=== PATIENT | female | born 1965 | race Two or more races ===

== ENCOUNTER 2017-02-13 20:31 | Emergency (ER) | payer MEDICAID ==
[2017-02-13 20:51] VITALS: BP 145/81
[2017-02-13] MEDS ORDERED: diphenhydrAMINE 25 MG Cap PO ONE (21:27)
--- NOTE | 2017-02-13 21:32 | EDM.PDOC ---
ED HPI GENERAL MEDICAL PROBLEM - General Chief Complaint: General Stated Complaint: ILLNESS Time Seen by Provider: 02/13/17 21:21 Source of Information: Reports: Patient History Limitations: Reports: No limitations - History of Present Illness INITIAL COMMENTS - FREE TEXT/NARRATIVE: History of present illness: [51-year-old female is presenting with cold symptoms runny nose and sneezing for the last 3 days. She was afraid to take anything [id number] as she is on Paxil and she didn't know if there would be any drug interactions. She is having a colonoscopy on the seventh and is hoping to not cancel that. She has no shortness of breath fevers or chills. ] Review of systems: As per history of present illness and below otherwise all systems reviewed and negative. Past medical history: As per history of present illness and as reviewed below otherwise noncontributory. Surgical history: As per history of present illness and as reviewed below otherwise noncontributory. Social history: No reported history of drug or alcohol abuse. Family history: As per history of present illness and as reviewed below otherwise noncontributory. Physical exam: HEENT: Atraumatic, normocephalic, pupils reactive, negative for conjunctival pallor or scleral icterus, mucous membranes moist, throat clear, neck supple, nontender, trachea midline. Her nose is very congested and erythematous Lungs: Clear to auscultation, breath sounds equal bilaterally, chest nontender. Heart: S1S2, regular, negative for clicks, rubs, or JVD. Extremities: Atraumatic, negative for cords or calf pain. Neurovascular unremarkable. Neuro: Awake, alert, oriented. Exam nonfocal. Diagnostics: [] Therapeutics: [] Impression: [URI] Plan: [Benadryl does not interact with contacts I'm giving her 50 mg by mouth now and then she picks him up [id number] and also use Afrin spray] Definitive disposition and diagnosis as appropriate pending reevaluation and review of above. Face Pain Score (Numeric/FACES): 9 - Related Data Allergies Allergy/AdvReac Type Severity Reaction Status Date / Time No Known Allergies Allergy Verified 06/17/16 13:24 Home Meds: Home Meds Dabigatran [Pradaxa] 150 mg PO BID #60 cap 08/04/16 [Rx] Hydrocodone/Acetaminophen [Hydrocodon-Acetaminophen 5-325] 1 each PO QID PRN 02/28 [History] Past Medical History HEENT History: Reports: Impaired vision Respiratory History: Reports: PE Other Respiratory History: Non productive cough past 3 years. 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 Musculoskeletal History: Reports: Back pain, chronic Other Musculoskeletal History: pelvis fx finger fx 07/02 Endocrine/Metabolic History: Reports: Obesity/BMI 30+ - Infectious Disease History Infectious Disease History: Reports: Chicken pox - Past Surgical History Female Surgical History: Reports: section Social & Family History - Family History Endocrine/Metabolic: Reports: Diabetes, type II Dermatologic: Reports: Other (see below) Other Dermatologic Family History: mother skin cancer Oncologic: Reports: Other (see below) Other Oncologic Family History: Throat - Tobacco Use Smoking Status *Q: Current Every Day Smoker Years of Tobacco use: 46 Packs/Tins Daily: 0.5 Used Tobacco, but Quit: No Second Hand Smoke Exposure: Yes - Caffeine Use Caffeine Use: Reports: None - Alcohol Use Days Per Week of Alcohol Use: 2 Number of Drinks Per Day: 2 Total Drinks Per Week: 4 - Recreational Drug Use Recreational Drug Use: Yes ED ROS GENERAL - Review of Systems Review Of Systems: ROS reveals no pertinent complaints other than HPI. ED EXAM, GENERAL - Physical Exam Exam: See Below Course - Vital Signs Last Recorded V/S: Last Vital Signs Temp 35.5 C 02/13/17 20:58 Pulse 107 H 02/13/17 20:58 Resp 20 02/13/17 20:58 BP 145/81 H 02/13/17 20:58 Pulse Ox 97 02/13/17 20:58 - Orders/Labs/Meds Orders: Active Orders 24 hr Category Date Time Status diphenhydrAMINE [Benadryl] Med 02/13/17 21:27 Once 50 mg PO ONETIME ONE Departure - Departure Time of Disposition: 21:31 Disposition: Home, Self-Care 01 Condition: good Clinical Impression: URI (upper respiratory infection) Qualifiers: URI type: unspecified viral URI Qualified Code(s): J06.9 - Acute upper respiratory infection, unspecified; B97.89 - Other viral agents as the cause of diseases classified elsewhere Forms: ED Department Discharge Additional Instructions: As we discussed you can sweet pickle maker some [id number] Benadryl. If you get the generic kind it will be cheaper for you. Afrin spray would also be something you could use temporarily. If your problem continues to persist you can follow up in the clinic for further evaluation. - My Orders Last 24 Hours: My Active Orders 02/13/17 21:27 diphenhydrAMINE [Benadryl] 50 mg PO ONETIME ONE - Assessment/Plan Last 24 Hours: My Active Orders 02/13/17 21:27 diphenhydrAMINE [Benadryl] 50 mg PO ONETIME ONE
== END 2017-02-13 21:40 | disposition home or self-care (01) ==
LOC: JP.ED 20:31
DX: J06.9 Acute upper respiratory infection, unspecified (principal); F17.210 Nicotine dependence, cigarettes, uncomplicated; E66.9 Obesity, unspecified; Z68.35 Body mass index [BMI] 35.0-35.9, adult; Z98.890 Other specified postprocedural states
CPT/HCPCS: 99283; A9270

== ENCOUNTER 2017-06-09 07:52 | Inpatient (IN) | payer MEDICAID ==
[~2017-06-09 07:52] MED LIST: Povidone-Iodine 10% Soln 118.25 ML Bottle ONE; Thrombin (Bovine) 5,000 Unit Kit ONE
[2017-06-09] MEDS ORDERED: Scopolamine 1.5 MG Transdermal Patch TOP SCH (08:00)
[2017-06-09] MEDS ORDERED: Gabapentin 300 MG Cap PO ONE (08:00)
[2017-06-09] MEDS: Lactated Ringers 1,000 ML IV SCH ×2 (08:48→17:23)
[2017-06-09] MEDS ORDERED: Succinylcholine 200 MG/10 ML MDV ONE (08:55)
[2017-06-09] MEDS ORDERED: Neostigmine Methylsulfate 1 MG/ML 5 ML Syringe ONE (08:55)
[2017-06-09] MEDS ORDERED: Dexamethasone 4 MG/ML SDV ONE (08:55)
[2017-06-09] MEDS ORDERED: Propofol 200 MG/20 ML SDV ONE ×3 (08:55→13:21)
[2017-06-09] MEDS ORDERED: Ondansetron 4 MG/2 ML SDV ONE (08:55)
[2017-06-09] MEDS ORDERED: Rocuronium 50 MG/5 ML Vial ONE (08:55)
[2017-06-09] MEDS ORDERED: fentaNYL 100 MCG/2 ML SDV ONE (08:56)
[2017-06-09] MEDS ORDERED: Ropivacaine 49.25 ML, Ketorolac 30 MG, EPINEPHrine 0.5 MG, cloNIDine 80 MCG, Sodium Chl... INJECT ONE ×5 (09:30)
[2017-06-09] MEDS ORDERED: Ketamine 500 MG/5 ML MDV IV ONE (09:30)
[2017-06-09] MEDS ORDERED: ceFAZolin 2 GM in Sodium Chloride 0.9% 50 ML IV ONE (09:30)
[2017-06-09] MEDS: Tranexamic Acid 920 MG in Sodium Chloride 0.9% 50 ML IV SCH ×3 (11:45→15:52)
[2017-06-09] MEDS ORDERED: Ondansetron 4 MG/2 ML SDV IVPUSH PRN (14:13)
[2017-06-09] MEDS ORDERED: Naloxone 0.4 MG/ML SDV IVPUSH PRN (14:13)
[2017-06-09] MEDS ORDERED: Zolpidem 5 MG Tab PO PRN (14:13)
[2017-06-09] MEDS ORDERED: Aluminum Hydroxide/Magnesium Hydroxide/Simethicone Susp 30 ML Cup PO PRN (14:13)
[2017-06-09] MEDS ORDERED: Sodium Chloride 0.9% 10 ML Syringe FLUSH PRN (14:13)
[2017-06-09] MEDS ORDERED: Sennosides 8.6 MG Tab PO PRN (14:13)
[2017-06-09] MEDS ORDERED: ceFAZolin 2 GM in Sodium Chloride 0.9% 50 ML IV SCH (14:15)
[2017-06-09] MEDS ORDERED: Gelatin Sponge,Absorbable Pwd 1 GM Pkt MISC ONE (15:00)
[2017-06-09] MEDS: VERIFY SCOPOLAMINE PATCH TOP SCH (15:53)
[2017-06-09] MEDS ORDERED: Albuterol 0.083% 2.5 MG/3 ML Neb Soln NEB PRN (16:39)
[2017-06-09] MEDS: HYDROmorphone 1 MG/ML Syringe IVPUSH PRN (16:51)
--- NOTE | 2017-06-09 17:08 | PCM.CONS ---
H&P History of Present Illness - General Date of Service: 06/09/17 Admit Problem/Dx: Admission Diagnosis/Problem Admission Diagnosis/Problem Spinal stenosis Source of Information: Patient, Provider, RN Notes Reviewed History Limitations: Reports: No Limitations - History of Present Illness Initial Comments - Free Text/Narative: This patient is a 51-year-old woman who I been asked to see by Dr. Ilia Snyder for assistance in medical management during the postoperative period. She underwent spine surgery earlier today by Dr. Snyder, thus far she is done well. Pain control at the present time is suboptimal but she is receiving pain medication from the nursing staff when I saw her. She is been hemodynamically stable and afebrile, denies chest pain, shortness of breath, nausea or vomiting. 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 Musculoskeletal History: Reports: Back Pain, Chronic Other Musculoskeletal History: pelvis fx finger fx Psychiatric History: Reports: Depression Endocrine/Metabolic History: Reports: Obesity/BMI 30+ - Infectious Disease History Infectious Disease History: Reports: Chicken Pox - Past Surgical History HEENT Surgical History: Reports: Tonsillectomy, Other (See Below) Other HEENT Surgeries/Procedures: "ear drums replaced" GI Surgical History: Reports: Hernia, Inguinal Female Surgical History: Reports: Section Social & Family History - Family History HEENT: Reports: Impaired Vision Cardiac: Reports: High Cholesterol, Hypertension Endocrine/Metabolic: Reports: Diabetes, type II Dermatologic: Reports: Other (See Below) Other Dermatologic Family History: mother skin cancer Oncologic: Reports: Other (See Below) Other Oncologic Family History: unknown to pt. - Tobacco Use Smoking Status *Q: Former Smoker Years of Tobacco use: 46 Packs/Tins Daily: 0.5 Used Tobacco, but Quit: Yes Month Tobacco Last Used: 6 Second Hand Smoke Exposure: Yes - Caffeine Use Caffeine Use: Reports: None - Alcohol Use Days Per Week of Alcohol Use: 2 Number of Drinks Per Day: 2 Total Drinks Per Week: 4 - Recreational Drug Use Recreational Drug Use: No H&P Review of Systems - Review of Systems: Review Of Systems: See Below General: Denies: Fever, Chills, Weakness Pulmonary: Reports: No Symptoms Cardiovascular: Reports: No Symptoms Gastrointestinal: Reports: No Symptoms Musculoskeletal: Reports: Back Pain Neurological: Reports: No Symptoms Exam - Exam Exam: See Below - Vital Signs Vital Signs: Last Vital Signs Temp 96 F 06/09/17 15:00 Pulse 72 06/09/17 16:30 Resp 16 06/09/17 15:45 BP 114/73 06/09/17 16:30 Pulse Ox 92 L 06/09/17 16:30 Weight: 201 lb 4.8 oz - Exam Quality Assessment: DVT Prophylaxis General: Alert, Oriented, Cooperative, Mild Distress Neck: Supple, Trachea Midline, +2 Carotid Pulse wo Bruit Lungs: Clear to Auscultation, Normal Respiratory Effort Cardiovascular: Regular Rate, Regular Rhythm, Normal S1, Normal S2. No: Systolic Murmur, Diastolic Murmur GI/Abdominal Exam: Normal Bowel Sounds, Soft, Non-Tender, No Organomegaly, No Distention Extremities: Normal Inspection, No Pedal Edema Consult PN Assessment/Plan Procedures: Procedures ANTITHROMBIN III ACTIVITY (06/17/16) BLOOD TYPING SEROLOGIC ABO (06/08/17) BLOOD TYPING SEROLOGIC RH(D) (06/08/17) CARDIOLIPIN ANTIBODY EA IG (06/17/16) COMP SCREEN MAMMOGRAM ADD-ON (11/13/15) COMPATIBILITY TEST ANTIGLOB (06/08/17) COMPATIBILITY TEST SPIN (06/08/17) COMPLETE CBC W/AUTO DIFF WBC (06/08/17) COMPREHEN METABOLIC PANEL (06/08/17) CT ANGIOGRAPHY CHEST (04/02/17) CULTURE OTHR SPECIMN AEROBIC (05/20/17) CULTURE SCREEN ONLY (11/11/13) ELECTRICAL STIMULATION (04/14/17) EMERGENCY DEPT VISIT (02/13/17) EMERGENCY DEPT VISIT (06/17/16) EMERGENCY DEPT VISIT (06/16/16) EMERGENCY DEPT VISIT (05/05/16) EMERGENCY DEPT VISIT (06/23/15) EMERGENCY DEPT VISIT (01/05/15) EVALUATION OF WHEEZING (05/31/14) EXTREMITY STUDY (03/15/17) INFLUENZA A/B AG IA (11/11/13) MANUAL THERAPY 1/> REGIONS (05/12/17) MECHANICAL TRACTION THERAPY (05/12/17) MRI LUMBAR SPINE W/O DYE (02/24/17) OFFICE/OUTPATIENT VISIT NEW (03/22/17) PT EVAL MOD COMPLEX 30 MIN (04/14/17) RBC ANTIBODY SCREEN (06/08/17) ROUTINE VENIPUNCTURE (06/17/16) STREP A AG IA (11/11/13) THER/PROPH/DIAG INJ SC/IM (06/17/16) THERAPEUTIC EXERCISES (04/14/17) TREAT FINGER DISLOCATION (07/02/15) ULTRASOUND THERAPY (04/14/17) X-RAY EXAM L-2 SPINE 4/>VWS (03/22/17) X-RAY EXAM OF FINGER(S) (07/02/15) Problem List Initiated/Reviewed/Updated: Yes My Orders Last 24 Hours: My Active Orders 06/09/17 16:39 RT Aerosol Therapy [RC] ASDIRECTED Albuterol [Proventil Neb Soln] 2.5 mg NEB Q4HRRT PRN 06/09/17 21:00 Flunisolide [Aerospan] 2 puff IH BID Gabapentin [Neurontin] 300 mg PO TID Plan: ASSESSMENT AND RECOMMENDATIONS STATUS POST SPINE SURGERY-stable and doing well in the immediate postoperative period -Ongoing postoperative management per Dr. Snyder REACTIVE AIRWAY DISEASE-currently asymptomatic -Continue outpatient steroid inhaler -Nebulized albuterol as needed Requesting Provider: RUTHIE Date Consult Requested: 06/09/17 Reason for Consult: Postoperative medical management Patient History Reviewed: Yes
[2017-06-09] MEDS: Acetaminophen/oxyCODONE 325-5 MG Tab PO PRN ×2 (17:10→21:19)
[2017-06-09] MEDS: ceFAZolin 2 GM in Sodium Chloride 0.9% 50 ML IV SCH (17:23)
[2017-06-09] MEDS: Gabapentin 300 MG Cap PO SCH (21:04)
[2017-06-09] MEDS: Formoterol/Mometasone 200-5 MCG 8.8 GM Inhaler IH SCH (21:05)
--- NOTE | 2017-06-09 22:24 | OR ---
DATE OF PROCEDURE: 06/09/2017 PREOPERATIVE DIAGNOSES: 1. Spondylolisthesis, L4-L5. 2. Foraminal stenosis, L4-L5. 3. Lumbar radiculopathy, L4-L5. 4. Low back pain. POSTOPERATIVE DIAGNOSES: 1. Spondylolisthesis, L4-L5. 2. Foraminal stenosis, L4-L5. 3. Lumbar radiculopathy, L4-L5. 4. Low back pain. PROCEDURES: 1. Transforaminal lumbar interbody fusion with posterior lateral grafting L4-L5. 2. Segmental fixation, L4-L5. 3. Interbody device placement, L4-L5. 4. Use of intraoperative fluoroscopy. 5. Laminectomy required for decompression in addition to interbody placement. 6. Use of allograft. 7. Use of autograft contained from facetectomy as well as hemilaminectomy. 8. Using autograft in the L4-L5 interspace as well as the right posterior lateral gutter. DRAINMAN: RIYA Walker. FLUID: Lactated Ringer solution. ESTIMATED BLOOD LOSS: 150 mL. COMPLICATIONS: None. SPECIMEN: None. DISCHARGE DISPOSITION: Stable to PACU. INDICATIONS FOR THE PROCEDURE: The patient was seen preoperatively by myself in the clinic. She had undergone nonoperative treatment, preoperative imaging confirmed the above-mentioned diagnoses. Risks and benefits of the procedure were explained to the patient. Informed consent was obtained. DESCRIPTION OF OPERATION: The patient was seen preoperatively by myself and Anesthesia staff in the preop holding area where the operative site was marked. She was brought to the operative suite by the Anesthesia staff where general anesthesia was administered. Neuromonitoring leads were placed. A sterile Aiken catheter was placed. The operating microscope and fluoroscopy unit were draped in a sterile manner. The patient was then flipped into a prone position on a Jc table. All extremities were found to be well padded. Neuromonitoring leads were normal at baseline. A time-out was called identifying the correct patient, the correct procedure, the correct site, and the antibiotics begun within appropriate period of time. Lateral fluoroscopy was used to identify the L4 and L5 pedicles. The incision was made over the area from the L4-L5 pedicles down to the deep fascia. There was considerably a large amount of fat present. The cerebellars were used for deep retraction. Bleeding was controlled with Bovie electrocautery, bipolar electrocautery, and Aquamantys 5.0 unit during the case. The deep fascia was incised with Bovie electrocautery over the L4 and L5 spinous processes using a Butler elevator, an ENT Bovie tip was used. This was carried down over the spinous processes of L4 and L5, the respective lamina, facets, and transverse processes. After this had been accomplished, this was confirmed on fluoroscopy. 100 mm Versa-Trac blades were then inserted, two of them were used. We then removed the soft tissue and prepared the posterior lateral gutter for grafting. The screws on the left were placed first and confirmed to be in good position on fluoroscopy, followed by the right screws. The pedicle screw placement was done by initially drilling out the facets and then drilling our starting point with the drill and then entering with a PediGuard followed by pedicle probe, followed by screw insertion, screws were from [employer] and were 7.5 x 45 mm hydroxyapatite-coated screws except for left L5 which was 7.5 x 40. All screws were tested above 17 after placement and found to be in good position. After this had been accomplished, I then performed a hemilaminectomy on the left side with total facetectomy removing the inferior facet of L4 and the superior facet of L5 on the left to prepare for interbody placement. I used bipolar electrocautery and then a #4 Ossian to identify the disc space. We did not get near the traversing nerve root over the exiting root nerve root at the L4-L5 interspace. I used sequential meet up to a 10. I then used a straight curette upgoing and downgoing curettes and pituitary and then removed as much extra disc as possible for disc preparation. We then used a bone funnel anteriorly and placed our allograft, autograft mix anteriorly. We then inserted a Rise 10 x 22, 8 to 14, 10 degree cage from [employer]. I then expanded this under fluoroscopy until I torqued out. I then placed a small amount of Floseal for bleeding control. I did use bipolar electrocautery as well as the Aquamantys 5.0 unit at times for epidural bleeding. After this had been completed, we then copiously irrigated with 3 L of Betadine infused irrigation. I then prepared the graft on the right by decorticating the transverse processes on the right at L4-L5 and then placed our allograft autograft mix. The allograft was Signify by [employer]. We then placed our tulips on. After cleaning around the tulips and then placed a 30 mm on the left and 35 mm alyl on the right and then placed our set screws and then torqued them to hold. We then took final films, AP, and lateral, which showed our instrumentation to be in good position. We then closed the deep fascia. I then actually applied two Gel-Foam packets and I put an extra thrombin Gelfoam over the lateral gutter there was some bony bleeding which did contain the bleeding. We then closed the deep fascia with #2 Vicryl in an interlocking manner, #2 Vicryl in a running manner, followed by deep subcutaneous 0 Vicryl pops followed by subcutaneous 2-0 pops superficially followed by 2-0 Monocryl and Dermabond. We had placed a drain, however that came out at the end of the case. We did inject with local anesthetic mix into the subcutaneous area as well as deep musculature. The patient was then flipped into a supine position on the hospital bed. Neuromonitoring leads were taken out and the patient was allowed to awake from general anesthesia, taken to the PACU in good condition. Saleem Snyder DO /[id number]
[2017-06-10] MEDS: ceFAZolin 2 GM in Sodium Chloride 0.9% 50 ML IV SCH ×2 (01:42→10:03)
[2017-06-10] MEDS ORDERED: Dexamethasone 4 MG/ML SDV IVPUSH SCH ×2 (02:15→08:00)
[2017-06-10] MEDS ORDERED: Glycopyrrolate 0.2 MG/ML 5 ML MDV ONE (02:36)
[2017-06-10] MEDS ORDERED: Rocuronium 50 MG/5 ML Vial ONE (02:36)
[2017-06-10] MEDS ORDERED: Neostigmine Methylsulfate 1 MG/ML 5 ML Syringe ONE (02:36)
[2017-06-10] MEDS ORDERED: Dexamethasone 4 MG/ML SDV ONE (02:36)
[2017-06-10] MEDS ORDERED: Succinylcholine 200 MG/10 ML MDV ONE (02:36)
[2017-06-10] MEDS ORDERED: Midazolam 1 MG/ML 2 ML SDV ONE (02:36)
[2017-06-10] MEDS ORDERED: Ondansetron 4 MG/2 ML SDV ONE (02:36)
[2017-06-10] MEDS ORDERED: Propofol 200 MG/20 ML SDV ONE (02:36)
[2017-06-10] MEDS ORDERED: ceFAZolin 1 GM Vial ONE (02:43)
[2017-06-10] MEDS ORDERED: Thrombin (Bovine) 5,000 Unit Kit ONE (03:30)
[2017-06-10] MEDS ORDERED: Povidone-Iodine 10% Soln 118.25 ML Bottle ONE ×2 (03:30→05:33)
[2017-06-10] MEDS ORDERED: Lactated Ringers 1,000 ML ONE ×2 (04:06→05:40)
[2017-06-10] MEDS ORDERED: ePHEDrine 50 MG/ML SDV ONE (04:15)
--- NOTE | 2017-06-10 06:25 | PCM.SN ---
- Free Text/Narrative Note: I was called at 130am notified of rle dorsiflexion weakness and right foot numbness. Ordered stat CT which showed R L4 and L5 screws medial. Took back to OR, redirected screws, medialized interbody implant. Post op patient dorsiflexion better rle. will eval later today.
[2017-06-10] MEDS: Mometasone Furoate Powder 220 MCG/Puff 14 Dose Inhaler INH SCH (07:41)
[2017-06-10] MEDS: Formoterol/Mometasone 200-5 MCG 8.8 GM Inhaler IH SCH (07:42)
[2017-06-10] MEDS: Dexamethasone 4 MG/ML 5 ML MDV IVPUSH SCH ×3 (08:33→20:25)
[2017-06-10] MEDS: Gabapentin 300 MG Cap PO SCH (08:36)
[2017-06-10] MEDS: VERIFY SCOPOLAMINE PATCH TOP SCH (08:47)
--- NOTE | 2017-06-10 09:46 | OR ---
DATE OF PROCEDURE: 06/09/2017 PREOPERATIVE DIAGNOSIS: Malpositioned L4-L5 screws, right. POSTOPERATIVE DIAGNOSIS: Malpositioned L4-L5 screws, right. PROCEDURES: 1. Repositioning of right L4 and L5 screws. 2. Reposition of interbody implant. TOOLS DEVELOPER: RIYA aWlker. ANESTHESIA: General endotracheal intubation. FLUID: Lactated Ringer solution. ESTIMATED BLOOD LOSS: 400 mL. COMPLICATIONS: None. SPECIMEN: None. DISCHARGE DISPOSITION: Stable to PACU. INDICATIONS FOR THE PROCEDURE: The patient was seen preoperatively by myself and the anesthesia staff. I had seen her on the floor. I was called at approximately 1:35, regarding right lower extremity weakness, dorsiflexion, and numbness. When I arrived on the floor, the patient was still able to maintain dorsiflexion but not actively dorsiflex. So, I assessed this at 3/5. Sensation was still intact although with paresthesias on the dorsum of the foot and normal in the remainder of the right lower extremity. She had good range of motion, otherwise of the right lower extremity. She states she was having some pain down the right back and buttocks. I then asked for a stat CT which revealed medial breach of the pedicle at L4 and L5 on the right. Also noted that the interbody was just slightly lateral to where I would like it. Risks and benefits of procedure were explained to the patient and informed consent was obtained. DETAILS OF PROCEDURE: The patient was brought to the operative suite by the anesthesia staff where general anesthesia was administered. A Aiken catheter was already in the fluoroscopy unit and was sterilely draped. The patient was then flipped onto a Jc table in a prone position and all extremities found to be well padded. The bed was flexed as was during the primary procedure. The patient was then prepped and draped in a sterile manner. Time-out was called identifying the correct patient, correct procedure, the correct site, and antibiotics had been with appropriate period of time. The incision was gone through again and all of the sutures were removed down to the fascia. I used cerebellars for retraction, and then, the Versa-Trac 100 mm blades were used after the primary procedure. I then removed the left set screws and the ally, and then, using Bovie electrocautery, Kerrison, and pituitaries, I was able to remove the implant with some finesse. After it bringing back down to its normal size, I then repositioned it more medially. This was confirmed on fluoroscopy. We then removed our right set screws and rods, and then removed the right screws one at a time and then drilled a hole approximately 1 cm lateral. Each of those, I filled the pedicle holes with FloSeal to prevent any more bleeding. I then felt this with a pedicle probe tapped, felt the pedicle probe again, and then replaced the screws. Positioning was confirmed on fluoroscopy. We then reattached our rods and set screws and torqued them specifications. We then copiously irrigated with 3 L Betadine infused irrigation. We then placed one Gel-Foam powder inside the wound and then we closed with #2 Vicryl in a running fashion, deep with 0 Vicryl sutures, superficial with 2-0 subcutaneous sutures, 2-0 Monocryl and Dermabond followed by a sterile dressing. The patient was then flipped onto the hospital bed and taken to the PACU in stable condition. Saleem Snyder DO /[id number]
--- NOTE | 2017-06-10 10:58 | PCM.CONSN ---
- General Info Date of Service: 06/10/17 Functional Status: Reports: Pain Controlled, Tolerating Diet - Review of Systems General: Denies: Fever, Chills Pulmonary: Reports: No Symptoms Cardiovascular: Reports: No Symptoms Gastrointestinal: Reports: No Symptoms Systems Review Comment:: This patient unfortunately had complications during the night, requiring a return to surgery. Since the second surgery has been stable with good vital signs and has been afebrile. Weakness that she experienced in her leg is now resolved following the second surgery. - Patient Data Vitals - Most Recent: Last Vital Signs Temp 99.4 F 06/10/17 09:30 Pulse 92 06/10/17 10:00 Resp 16 06/10/17 10:00 BP 132/72 06/10/17 10:00 Pulse Ox 65 L 06/10/17 10:00 Weight - Most Recent: 201 lb 4.8 oz I&O - Last 24 Hours: Intake & Output 06/09/17 06/10/17 06/10/17 22:59 06:59 14:59 Intake Total 758 1344 1060 Output Total 205 135 350 Balance 553 1209 710 Lab Results Last 24 Hours: Laboratory Results - last 24 hr 06/10/17 06/10/17 06/10/17 Range/Units 07:25 07:25 09:28 WBC 14.9 H (4.5-11.0) K/uL RBC 4.04 (3.30-5.50) M/uL Hgb 10.6 L D (12.0-15.0) g/dL Hct 33.8 L (36.0-48.0) % MCV 84 (80-98) fL MCH 26 L (27-31) pg MCHC 31 L (32-36) % Plt Count 199 (150-400) K/uL Neut % (Auto) 85 H (36-66) % Lymph % (Auto) 7 L (24-44) % [place] % (Auto) 8 H (2-6) % Eos % (Auto) 0 L (2-4) % Baso % (Auto) 0 (0-1) % Sodium 137 L (140-148) mmol/L Potassium 4.2 (3.6-5.2) mmol/L Chloride 105 (100-108) mmol/L Carbon Dioxide 28 (21-32) mmol/L Anion Gap 8.2 (5.0-14.0) mmol/L BUN 15 (7-18) mg/dL Creatinine 0.9 (0.6-1.0) mg/dL Est Cr Clr Drug Dosing 59.80 mL/min Estimated GFR (MDRD) > 60 (>60) Glucose 148 H (74-106) mg/dL Calcium 8.0 L (8.5-10.1) mg/dL Urine Color Yellow Urine Appearance Slightly cloudy Urine pH 5.0 (4.5-8.0) Ur Specific [place] 1.015 (1.008-1.030) Urine Protein Negative (NEGATIVE) mg/dL Urine Glucose (UA) Normal (NEGATIVE) mg/dL Urine Ketones Negative (NEGATIVE) mg/dL Urine Occult Blood Large (NEGATIVE) Urine Nitrite Negative (NEGATIVE) Urine Bilirubin Negative (NEGATIVE) Urine Urobilinogen Normal (NORMAL) mg/dL Ur Leukocyte Esterase Negative (NEGATIVE) Urine RBC 30-40 H (0-5) Urine WBC 0-5 (0-5) Ur Epithelial Cells Few Amorphous Sediment Not seen Urine Bacteria Few Urine Mucus Not seen Med Orders - Current: Current Medications Al Hydroxide/Mg Hydroxide (Mag-Al Plus) 30 ml PO Q4H PRN PRN Reason: Indigestion Albuterol (Proventil Neb Soln) 2.5 mg NEB Q4H PRN PRN Reason: Dyspnea Dexamethasone (Dexamethasone) 10 mg IVPUSH Q6H [facility] Stop: 06/11/17 02:01 Last Admin: 06/10/17 08:33 Dose: 10 mg Diazepam (Valium) 5 mg IVPUSH Q6H PRN PRN Reason: Spasms Last Admin: 06/09/17 20:58 Dose: 5 mg Hydromorphone HCl (Dilaudid) 1 mg IVPUSH Q2H PRN PRN Reason: Pain Last Admin: 06/09/17 16:51 Dose: 1 mg Lactated Ringer's (Ringers, Lactated) 1,000 mls @ 100 mls/hr IV ASDIRECTED [facility] Last Admin: 06/09/17 17:23 Dose: 100 mls/hr Magnesium Hydroxide (Milk Of Magnesia) 30 ml PO BID PRN PRN Reason: Constipation Mometasone Furoate (Asmanex 220 Mcg) 0 puff INH DAILYRT [facility] Last Admin: 06/10/17 07:41 Dose: 2 puff Verify Scopolamine (Patch) 0 each TOP DAILY [facility] Last Admin: 06/10/17 08:47 Dose: Not Given Ondansetron HCl (Zofran) 8 mg IVPUSH Q4H PRN PRN Reason: Nausea/Vomiting Oxycodone/Acetaminophen (Percocet 325-5 Mg) 2 tab PO Q4H PRN PRN Reason: Pain Last Admin: 06/09/17 21:19 Dose: 2 tab Scopolamine (Transderm-Scop) 1.5 mg TOP Q72H [facility] Stop: 06/12/17 06:00 Last Admin: 06/09/17 08:12 Dose: 1.5 mg Senna (Senna) 8.6 mg PO BID PRN PRN Reason: Constipation Sodium Chloride (Saline Flush) 10 ml FLUSH ASDIRECTED PRN PRN Reason: Keep Vein Open Zolpidem Tartrate (Ambien) 5 mg PO BEDTIME PRN PRN Reason: Sleep Discontinued Medications Cefazolin Sodium (Ancef) Confirm Administered Dose 2 gm .ROUTE .STK-MED ONE Stop: 06/10/17 02:44 Ropivacaine 49.25 ml/Ketorolac Tromethamine 30 mg/Epinephrine HCl 0.5 mg/ Clonidine HCl 80 mcg/ Sodium Chloride 48.45 ml 0 ml INJECT ONETIME ONE Stop: 06/09/17 09:31 Last Admin: 06/09/17 13:54 Dose: 100 ml Dexamethasone (Dexamethasone) Confirm Administered Dose 4 mg .ROUTE .STK-MED ONE Stop: 06/09/17 08:56 Dexamethasone (Dexamethasone) 10 mg IVPUSH Q6H [facility] Stop: 06/10/17 20:15 Last Admin: 06/10/17 02:56 Dose: Not Given Dexamethasone (Dexamethasone) Confirm Administered Dose 4 mg .ROUTE .STK-MED ONE Stop: 06/10/17 02:37 Ephedrine Sulfate (Ephedrine Sulfate) Confirm Administered Dose 50 mg .ROUTE .STK-MED ONE Stop: 06/10/17 04:16 Fentanyl (Sublimaze) Confirm Administered Dose 400 mcg .ROUTE .STK-MED ONE Stop: 06/09/17 08:57 Fentanyl Citrate (Fentanyl 0.05 Mg/Ml Vial) Confirm Administered Dose 50 mcg .ROUTE .STK-MED ONE Stop: 06/09/17 08:57 Fentanyl Citrate (Fentanyl 0.05 Mg/Ml Vial) Confirm Administered Dose 50 mcg .ROUTE .STK-MED ONE Stop: 06/09/17 12:03 Fentanyl Citrate (Fentanyl 0.05 Mg/Ml Vial) Confirm Administered Dose 50 mcg .ROUTE .[facility] ONE Stop: 06/10/17 02:38 Gabapentin (Neurontin) 300 mg PO ONETIME ONE Stop: 06/09/17 08:01 Last Admin: 06/09/17 08:12 Dose: 300 mg Gabapentin (Neurontin) 300 mg PO TID [facility] Last Admin: 06/10/17 08:36 Dose: Not Given Gelatin (Gelfoam) 2 gm MISC ONETIME ONE Stop: 06/09/17 15:01 Last Admin: 06/09/17 15:57 Dose: Not Given Glycopyrrolate (Robinul) Confirm Administered Dose 1 mg .ROUTE .K-MED ONE Stop: 06/10/17 02:37 Cefazolin Sodium 2 gm/ Sodium (Chloride) 50 mls @ 100 mls/hr IV ONETIME ONE Stop: 06/09/17 09:59 Last Admin: 06/09/17 11:28 Dose: 100 mls/hr Ketamine HCl 100 mg/ Sodium (Chloride) 100 mls @ 15.7 mls/hr IV ASDIRECTED [facility] Stop: 06/09/17 12:00 Tranexamic Acid 920 mg/ Sodium (Chloride) 59.2 mls @ 236.8 mls/hr IV Q3H [facility] Stop: 06/09/17 12:44 Last Admin: 06/09/17 15:52 Dose: Not Given Cefazolin Sodium 2 gm/ Sodium (Chloride) 50 mls @ 100 mls/hr IV Q8H [facility] Stop: 06/10/17 06:44 Last Admin: 06/09/17 15:55 Dose: Not Given Cefazolin Sodium 2 gm/ Sodium (Chloride) 50 mls @ 100 mls/hr IV Q8H [facility] Stop: 06/10/17 10:29 Last Admin: 06/10/17 10:03 Dose: 100 mls/hr Lactated Ringer's (Ringers, Lactated) Confirm Administered Dose 1,000 mls @ as directed .ROUTE .[facility] ONE Stop: 06/10/17 04:07 Lactated Ringer's (Ringers, Lactated) Confirm Administered Dose 1,000 mls @ as directed .ROUTE .STK-MED ONE Stop: 06/10/17 05:41 Ketamine HCl (Ketalar) 26 mg IV ONETIME ONE Stop: 06/09/17 09:31 Last Admin: 06/09/17 15:53 Dose: Not Given Midazolam HCl (Versed 1 Mg/Ml) Confirm Administered Dose 2 mg .ROUTE .STK-MED ONE Stop: 06/10/17 02:37 Mometasone Furoate/Formoterol Fumar (Dulera 200-5 Mcg) 0 puff IH DAILYRT [facility] Last Admin: 06/10/17 07:42 Dose: Not Given Naloxone HCl (Narcan) 0.2 mg IVPUSH ONETIME PRN PRN Reason: Oversedation Stop: 06/09/17 14:14 Neostigmine Methylsulfate (Neostigmine) Confirm Administered Dose 5 mg .ROUTE .STK-MED ONE Stop: 06/09/17 08:56 Neostigmine Methylsulfate (Neostigmine) Confirm Administered Dose 5 mg .ROUTE .STK-MED ONE Stop: 06/10/17 02:37 Ondansetron HCl (Zofran) Confirm Administered Dose 4 mg .ROUTE .STK-MED ONE Stop: 06/09/17 08:56 Ondansetron HCl (Zofran) Confirm Administered Dose 4 mg .ROUTE .STK-MED ONE Stop: 06/10/17 02:37 Povidone Iodine (Betadine 10% Soln) Confirm Administered Dose 1 ml .ROUTE .STK- MED ONE Stop: 06/09/17 06:43 Last Admin: 06/09/17 12:20 Dose: 30 ml Povidone Iodine (Betadine 10% Soln) Confirm Administered Dose 1 ml .ROUTE .STK- MED ONE Stop: 06/10/17 03:31 Last Admin: 06/10/17 04:50 Dose: 30 ml Povidone Iodine (Betadine 10% Soln) Confirm Administered Dose 1 ml .ROUTE .STK- MED ONE Stop: 06/10/17 05:34 Last Admin: 06/10/17 05:30 Dose: 10 ml Propofol (Diprivan 20 Ml) Confirm Administered Dose 200 mg .ROUTE .STK-MED ONE Stop: 06/09/17 08:56 Propofol (Diprivan 20 Ml) Confirm Administered Dose 600 mg .ROUTE .[facility] ONE Stop: 06/09/17 12:20 Propofol (Diprivan 20 Ml) Confirm Administered Dose 200 mg .ROUTE .[facility] ONE Stop: 06/09/17 13:22 Propofol (Diprivan 20 Ml) Confirm Administered Dose 200 mg .ROUTE .[facility] ONE Stop: 06/10/17 02:37 Rocuronium [place] (Zemuron) Confirm Administered Dose 50 mg .ROUTE .[facility] ONE Stop: 06/09/17 08:56 Rocuronium [place] (Zemuron) Confirm Administered Dose 50 mg .ROUTE .[facility] ONE Stop: 06/10/17 02:37 Sodium Chloride (Normal Saline) 1,000 ml IRR .[facility] ONE Stop: 06/09/17 12:22 Last Admin: 06/09/17 12:21 Dose: 1,000 ml Succinylcholine Chloride (Quelicin) Confirm Administered Dose 200 mg .ROUTE .[facility] ONE Stop: 06/09/17 08:56 Succinylcholine Chloride (Quelicin) Confirm Administered Dose 200 mg .ROUTE .[facility] ONE Stop: 06/10/17 02:37 Thrombin (Thrombin-Jmi) Confirm Administered Dose 15,000 unit .ROUTE .[facility] ONE Stop: 06/09/17 06:43 Last Admin: 06/09/17 12:20 Dose: 10,000 unit Thrombin (Thrombin-Jmi) Confirm Administered Dose 15,000 unit .ROUTE .[facility] ONE Stop: 06/10/17 03:31 Last Admin: 06/10/17 04:20 Dose: 10,000 unit - Exam General: Alert, Oriented, Cooperative, No Acute Distress Lungs: Clear to Auscultation, Normal Respiratory Effort Cardiovascular: Regular Rate, Regular Rhythm GI/Abdominal Exam: Normal Bowel Sounds, Soft, Non-Tender, No Distention Consult PN Assessment/Plan Procedures: Procedures ANTITHROMBIN III ACTIVITY (06/17/16) BLOOD TYPING SEROLOGIC ABO (06/08/17) BLOOD TYPING SEROLOGIC RH(D) (06/08/17) CARDIOLIPIN ANTIBODY EA IG (06/17/16) COMP SCREEN MAMMOGRAM ADD-ON (11/13/15) COMPATIBILITY TEST ANTIGLOB (06/08/17) COMPATIBILITY TEST SPIN (06/08/17) COMPLETE CBC W/AUTO DIFF WBC (06/08/17) COMPREHEN METABOLIC PANEL (06/08/17) CT ANGIOGRAPHY CHEST (04/02/17) CULTURE OTHR SPECIMN AEROBIC (05/20/17) CULTURE SCREEN ONLY (11/11/13) ELECTRICAL STIMULATION (04/14/17) EMERGENCY DEPT VISIT (02/13/17) EMERGENCY DEPT VISIT (06/17/16) EMERGENCY DEPT VISIT (06/16/16) EMERGENCY DEPT VISIT (05/05/16) EMERGENCY DEPT VISIT (06/23/15) EMERGENCY DEPT VISIT (01/05/15) EVALUATION OF WHEEZING (05/31/14) EXTREMITY STUDY (03/15/17) INFLUENZA A/B AG IA (11/11/13) MANUAL THERAPY 1/> REGIONS (05/12/17) MECHANICAL TRACTION THERAPY (05/12/17) MRI LUMBAR SPINE W/O DYE (02/24/17) OFFICE/OUTPATIENT VISIT NEW (03/22/17) PT EVAL MOD COMPLEX 30 MIN (04/14/17) RBC ANTIBODY SCREEN (06/08/17) ROUTINE VENIPUNCTURE (06/17/16) STREP A AG IA (11/11/13) THER/PROPH/DIAG INJ SC/IM (06/17/16) THERAPEUTIC EXERCISES (04/14/17) TREAT FINGER DISLOCATION (07/02/15) ULTRASOUND THERAPY (04/14/17) X-RAY EXAM L-2 SPINE 4/>VWS (03/22/17) X-RAY EXAM OF FINGER(S) (07/02/15) Problem List Initiated/Reviewed/Updated: Yes My Orders Last 24 Hours: My Active Orders 06/09/17 16:39 RT Aerosol Therapy [RC] ASDIRECTED Albuterol [Proventil Neb Soln] 2.5 mg NEB Q4H PRN 06/10/17 07:00 Mometasone Furoate [Asmanex 220 MCG] 0 puff INH DAILYRT Plan: ASSESSMENT AND RECOMMENDATIONS STATUS POST SPINE SURGERY-developed weakness in the night requiring a return to surgery. Stable since the second surgery. -Ongoing postoperative management per Dr. Snyder RE[employer] DISEASE-currently asymptomatic -Continue outpatient steroid inhaler -Nebulized albuterol as needed
[2017-06-10] MEDS: Acetaminophen/oxyCODONE 325-5 MG Tab PO PRN ×3 (11:55→21:33)
[2017-06-10] MEDS: Lactated Ringers 1,000 ML IV SCH ×2 (11:56→20:37)
--- NOTE | 2017-06-10 12:09 | PCM.PN ---
- General Info Functional Status: Reports: Pain Controlled - Review of Systems General: Reports: No Symptoms HEENT: Reports: No Symptoms Pulmonary: Reports: No Symptoms Cardiovascular: Reports: No Symptoms Gastrointestinal: Reports: No Symptoms Genitourinary: Reports: No Symptoms Musculoskeletal: Reports: Back Pain Skin: Reports: No Symptoms Neurological: Reports: No Symptoms Psychiatric: Reports: No Symptoms - Patient Data Vitals - Most Recent: Last Vital Signs Temp 98.5 F 06/10/17 11:50 Pulse 92 06/10/17 11:50 Resp 19 06/10/17 11:50 BP 106/69 06/10/17 11:50 Pulse Ox 96 06/10/17 11:50 Weight - Most Recent: 201 lb 4.8 oz I&O - Last 24 Hours: Intake & Output 06/09/17 06/10/17 06/10/17 22:59 06:59 14:59 Intake Total 758 1344 1060 Output Total 205 135 350 Balance 553 1209 710 Lab Results Last 24 Hours: Laboratory Results - last 24 hr 06/10/17 06/10/17 06/10/17 Range/Units 07:25 07:25 09:28 WBC 14.9 H (4.5-11.0) K/uL RBC 4.04 (3.30-5.50) M/uL Hgb 10.6 L D (12.0-15.0) g/dL Hct 33.8 L (36.0-48.0) % MCV 84 (80-98) fL MCH 26 L (27-31) pg MCHC 31 L (32-36) % Plt Count 199 (150-400) K/uL Neut % (Auto) 85 H (36-66) % Lymph % (Auto) 7 L (24-44) % [place] % (Auto) 8 H (2-6) % Eos % (Auto) 0 L (2-4) % Baso % (Auto) 0 (0-1) % Sodium 137 L (140-148) mmol/L Potassium 4.2 (3.6-5.2) mmol/L Chloride 105 (100-108) mmol/L Carbon Dioxide 28 (21-32) mmol/L Anion Gap 8.2 (5.0-14.0) mmol/L BUN 15 (7-18) mg/dL Creatinine 0.9 (0.6-1.0) mg/dL Est Cr Clr Drug Dosing 59.80 mL/min Estimated GFR (MDRD) > 60 (>60) Glucose 148 H (74-106) mg/dL Calcium 8.0 L (8.5-10.1) mg/dL Urine Color Yellow Urine Appearance Slightly cloudy Urine pH 5.0 (4.5-8.0) Ur Specific [place] 1.015 (1.008-1.030) Urine Protein Negative (NEGATIVE) mg/dL Urine Glucose (UA) Normal (NEGATIVE) mg/dL Urine Ketones Negative (NEGATIVE) mg/dL Urine Occult Blood Large (NEGATIVE) Urine Nitrite Negative (NEGATIVE) Urine Bilirubin Negative (NEGATIVE) Urine Urobilinogen Normal (NORMAL) mg/dL Ur Leukocyte Esterase Negative (NEGATIVE) Urine RBC 30-40 H (0-5) Urine WBC 0-5 (0-5) Ur Epithelial Cells Few Amorphous Sediment Not seen Urine Bacteria Few Urine Mucus Not seen Med Orders - Current: Current Medications Al Hydroxide/Mg Hydroxide (Mag-Al Plus) 30 ml PO Q4H PRN PRN Reason: Indigestion Albuterol (Proventil Neb Soln) 2.5 mg NEB Q4H PRN PRN Reason: Dyspnea Dexamethasone (Dexamethasone) 10 mg IVPUSH Q6H [facility] Stop: 06/11/17 02:01 Last Admin: 06/10/17 08:33 Dose: 10 mg Diazepam (Valium) 5 mg IVPUSH Q6H PRN PRN Reason: Spasms Last Admin: 06/09/17 20:58 Dose: 5 mg Hydromorphone HCl (Dilaudid) 1 mg IVPUSH Q2H PRN PRN Reason: Pain Last Admin: 06/09/17 16:51 Dose: 1 mg Lactated Ringer's (Ringers, Lactated) 1,000 mls @ 100 mls/hr IV ASDIRECTED [facility] Last Admin: 06/10/17 11:56 Dose: 100 mls/hr Magnesium Hydroxide (Milk Of Magnesia) 30 ml PO BID PRN PRN Reason: Constipation Mometasone Furoate (Asmanex 220 Mcg) 0 puff INH DAILYRT [facility] Last Admin: 06/10/17 07:41 Dose: 2 puff Verify Scopolamine (Patch) 0 each TOP DAILY [facility] Last Admin: 06/10/17 08:47 Dose: Not Given Ondansetron HCl (Zofran) 8 mg IVPUSH Q4H PRN PRN Reason: Nausea/Vomiting Oxycodone/Acetaminophen (Percocet 325-5 Mg) 2 tab PO Q4H PRN PRN Reason: Pain Last Admin: 06/10/17 11:55 Dose: 2 tab Scopolamine (Transderm-Scop) 1.5 mg TOP Q72H [facility] Stop: 06/12/17 06:00 Last Admin: 06/09/17 08:12 Dose: 1.5 mg Senna (Senna) 8.6 mg PO BID PRN PRN Reason: Constipation Sodium Chloride (Saline Flush) 10 ml FLUSH ASDIRECTED PRN PRN Reason: Keep Vein Open Zolpidem Tartrate (Ambien) 5 mg PO BEDTIME PRN PRN Reason: Sleep Discontinued Medications Cefazolin Sodium (Ancef) Confirm Administered Dose 2 gm .ROUTE .STK-MED ONE Stop: 06/10/17 02:44 Ropivacaine 49.25 ml/Ketorolac Tromethamine 30 mg/Epinephrine HCl 0.5 mg/ Clonidine HCl 80 mcg/ Sodium Chloride 48.45 ml 0 ml INJECT ONETIME ONE Stop: 06/09/17 09:31 Last Admin: 06/09/17 13:54 Dose: 100 ml Dexamethasone (Dexamethasone) Confirm Administered Dose 4 mg .ROUTE .STK-MED ONE Stop: 06/09/17 08:56 Dexamethasone (Dexamethasone) 10 mg IVPUSH Q6H [facility] Stop: 06/10/17 20:15 Last Admin: 06/10/17 02:56 Dose: Not Given Dexamethasone (Dexamethasone) Confirm Administered Dose 4 mg .ROUTE .STK-MED ONE Stop: 06/10/17 02:37 Ephedrine Sulfate (Ephedrine Sulfate) Confirm Administered Dose 50 mg .ROUTE .STK-MED ONE Stop: 06/10/17 04:16 Fentanyl (Sublimaze) Confirm Administered Dose 400 mcg .ROUTE .STK-MED ONE Stop: 06/09/17 08:57 Fentanyl Citrate (Fentanyl 0.05 Mg/Ml Vial) Confirm Administered Dose 50 mcg .ROUTE .STK-MED ONE Stop: 06/09/17 08:57 Fentanyl Citrate (Fentanyl 0.05 Mg/Ml Vial) Confirm Administered Dose 50 mcg .ROUTE .STK-MED ONE Stop: 06/09/17 12:03 Fentanyl Citrate (Fentanyl 0.05 Mg/Ml Vial) Confirm Administered Dose 50 mcg .ROUTE .STK-MED ONE Stop: 06/10/17 02:38 Gabapentin (Neurontin) 300 mg PO ONETIME ONE Stop: 06/09/17 08:01 Last Admin: 06/09/17 08:12 Dose: 300 mg Gabapentin (Neurontin) 300 mg PO TID [facility] Last Admin: 06/10/17 08:36 Dose: Not Given Gelatin (Gelfoam) 2 gm MISC ONETIME ONE Stop: 06/09/17 15:01 Last Admin: 06/09/17 15:57 Dose: Not Given Glycopyrrolate (Robinul) Confirm Administered Dose 1 mg .ROUTE .ST-MED ONE Stop: 06/10/17 02:37 Cefazolin Sodium 2 gm/ Sodium (Chloride) 50 mls @ 100 mls/hr IV ONETIME ONE Stop: 06/09/17 09:59 Last Admin: 06/09/17 11:28 Dose: 100 mls/hr Ketamine HCl 100 mg/ Sodium (Chloride) 100 mls @ 15.7 mls/hr IV ASDIRECTED [facility] Stop: 06/09/17 12:00 Tranexamic Acid 920 mg/ Sodium (Chloride) 59.2 mls @ 236.8 mls/hr IV Q3H [facility] Stop: 06/09/17 12:44 Last Admin: 06/09/17 15:52 Dose: Not Given Cefazolin Sodium 2 gm/ Sodium (Chloride) 50 mls @ 100 mls/hr IV Q8H [facility] Stop: 06/10/17 06:44 Last Admin: 06/09/17 15:55 Dose: Not Given Cefazolin Sodium 2 gm/ Sodium (Chloride) 50 mls @ 100 mls/hr IV Q8H [facility] Stop: 06/10/17 10:29 Last Admin: 06/10/17 10:03 Dose: 100 mls/hr Lactated Ringer's (Ringers, Lactated) Confirm Administered Dose 1,000 mls @ as directed .ROUTE .ST-MED ONE Stop: 06/10/17 04:07 Lactated Ringer's (Ringers, Lactated) Confirm Administered Dose 1,000 mls @ as directed .ROUTE .[facility] ONE Stop: 06/10/17 05:41 Ketamine HCl (Ketalar) 26 mg IV ONETIME ONE Stop: 06/09/17 09:31 Last Admin: 06/09/17 15:53 Dose: Not Given Midazolam HCl (Versed 1 Mg/Ml) Confirm Administered Dose 2 mg .ROUTE .STK-MED ONE Stop: 06/10/17 02:37 Mometasone Furoate/Formoterol Fumar (Dulera 200-5 Mcg) 0 puff IH DAILYRT [facility] Last Admin: 06/10/17 07:42 Dose: Not Given Naloxone HCl (Narcan) 0.2 mg IVPUSH ONETIME PRN PRN Reason: Oversedation Stop: 06/09/17 14:14 Neostigmine Methylsulfate (Neostigmine) Confirm Administered Dose 5 mg .ROUTE .STK-MED ONE Stop: 06/09/17 08:56 Neostigmine Methylsulfate (Neostigmine) Confirm Administered Dose 5 mg .ROUTE .STK-MED ONE Stop: 06/10/17 02:37 Ondansetron HCl (Zofran) Confirm Administered Dose 4 mg .ROUTE .STK-MED ONE Stop: 06/09/17 08:56 Ondansetron HCl (Zofran) Confirm Administered Dose 4 mg .ROUTE .STK-MED ONE Stop: 06/10/17 02:37 Povidone Iodine (Betadine 10% Soln) Confirm Administered Dose 1 ml .ROUTE .STK- MED ONE Stop: 06/09/17 06:43 Last Admin: 06/09/17 12:20 Dose: 30 ml Povidone Iodine (Betadine 10% Soln) Confirm Administered Dose 1 ml .ROUTE .STK- MED ONE Stop: 06/10/17 03:31 Last Admin: 06/10/17 04:50 Dose: 30 ml Povidone Iodine (Betadine 10% Soln) Confirm Administered Dose 1 ml .ROUTE .STK- MED ONE Stop: 06/10/17 05:34 Last Admin: 06/10/17 05:30 Dose: 10 ml Propofol (Diprivan 20 Ml) Confirm Administered Dose 200 mg .ROUTE .STK-MED ONE Stop: 06/09/17 08:56 Propofol (Diprivan 20 Ml) Confirm Administered Dose 600 mg .ROUTE .STK-MED ONE Stop: 06/09/17 12:20 Propofol (Diprivan 20 Ml) Confirm Administered Dose 200 mg .ROUTE .STK-MED ONE Stop: 06/09/17 13:22 Propofol (Diprivan 20 Ml) Confirm Administered Dose 200 mg .ROUTE .STK-MED ONE Stop: 06/10/17 02:37 Rocuronium [place] (Zemuron) Confirm Administered Dose 50 mg .ROUTE .STK-MED ONE Stop: 06/09/17 08:56 Rocuronium [place] (Zemuron) Confirm Administered Dose 50 mg .ROUTE .STK-MED ONE Stop: 06/10/17 02:37 Sodium Chloride (Normal Saline) 1,000 ml IRR .STK-MED ONE Stop: 06/09/17 12:22 Last Admin: 06/09/17 12:21 Dose: 1,000 ml Succinylcholine Chloride (Quelicin) Confirm Administered Dose 200 mg .ROUTE .STK -MED ONE Stop: 06/09/17 08:56 Succinylcholine Chloride (Quelicin) Confirm Administered Dose 200 mg .ROUTE .STK -MED ONE Stop: 06/10/17 02:37 Thrombin (Thrombin-Jmi) Confirm Administered Dose 15,000 unit .ROUTE .STK-MED ONE Stop: 06/09/17 06:43 Last Admin: 06/09/17 12:20 Dose: 10,000 unit Thrombin (Thrombin-Jmi) Confirm Administered Dose 15,000 unit .ROUTE .STK-MED ONE Stop: 06/10/17 03:31 Last Admin: 06/10/17 04:20 Dose: 10,000 unit - Exam General: Alert, Oriented HEENT: Pupils Equal, Pupils Reactive Neck: Supple Skin: Warm, Dry, Intact Wound/Incisions: Healing Well, Dressing Dry and Intact, No Drainage Neurological: No New Focal Deficit, Other Psy/Mental Status: Alert, Normal Affect Physical Findings Comments:: The patient was seen in her hospital bed approximately 10:30 this morning. She states that she now has pain on both sides of her back but is in good spirits. She is feeling a little bit more sensation in her foot. She believes that she has increased dorsiflexion strength. She is not able to bring it up but does fire the anterior tibialis and peroneal's today. - Problem List & Annotations (1) Status post lumbar spinal fusion SNOMED Code(s): 87352010910834, 257274896, 953091354, [id number] Code(s): Z98.1 - ARTHRODESIS STATUS Status: Acute Current Visit: Yes Annotation/Comment:: TLIF L4 -L5 (2) Spinal stenosis of lumbar region SNOMED Code(s): 19753677 Code(s): M48.06 - SPINAL STENOSIS, LUMBAR REGION Status: Chronic Current Visit: No - Problem List Review Problem List Initiated/Reviewed/Updated: Yes - My Orders Last 24 Hours: My Active Orders 06/09/17 13:00 Non-Formulary Medication [NF Drug] 0 each TOP DAILY 06/09/17 Dinner Regular Diet [DIET] 06/10/17 00:00 OR Fluoro-NC [CR] Routine 06/10/17 01:21 Lumbar Spine wo Cont [CT] Stat 06/10/17 06:11 Communication Order [RC] ASDIRECTED 06/10/17 08:00 Dexamethasone 10 mg IVPUSH Q6H - Plan Plan:: A: POD 1 L4-5 TLIF s/p emergent return to OR for repositioning of right L4,5 screws, improved P: PT/OT/pain control
[2017-06-10] MEDS: HYDROmorphone 1 MG/ML Syringe IVPUSH PRN (20:31)
[2017-06-11] MEDS: Acetaminophen/oxyCODONE 325-5 MG Tab PO PRN ×6 (01:31→23:55)
[2017-06-11] MEDS: Dexamethasone 4 MG/ML 5 ML MDV IVPUSH SCH (01:41)
[2017-06-11] MEDS: Lactated Ringers 1,000 ML IV SCH ×2 (05:46→15:56)
[2017-06-11] MEDS: Mometasone Furoate Powder 220 MCG/Puff 14 Dose Inhaler INH SCH (07:48)
[2017-06-11] MEDS: VERIFY SCOPOLAMINE PATCH TOP SCH (09:08)
[2017-06-11] MEDS ORDERED: Diazepam 2 MG Tab PO PRN (09:50)
[2017-06-11] MEDS: Magnesium Hydroxide 400 MG/5 ML Susp 30 ML Cup PO PRN (20:58)
[2017-06-12] MEDS: Lactated Ringers 1,000 ML IV SCH (02:18)
[2017-06-12] MEDS: Mometasone Furoate Powder 220 MCG/Puff 14 Dose Inhaler INH SCH (07:04)
[2017-06-12] MEDS: Acetaminophen/oxyCODONE 325-5 MG Tab PO PRN (07:58)
[2017-06-12 08:26] VITALS: BP 140/83
[2017-06-12] MEDS: VERIFY SCOPOLAMINE PATCH TOP SCH (08:28)
[2017-06-12] MEDS: Magnesium Hydroxide 400 MG/5 ML Susp 30 ML Cup PO PRN (09:52)
--- NOTE | 2017-06-14 08:02 | PCM.DCSUM1 ---
Discharge Summary - Hospital Course Free Text/Narrative:: Patient is status postop day 3 of a lumbar fusion. She is doing very well. Patient plans to discharge today. Pain is under control with oral pain medications. She is urinating and ambulating without any difficulties. - Discharge Data Discharge Date: 06/12/17 Discharge Disposition: Home, Self-Care 01 Condition: Good - Patient Summary/Data Consults: Consultations 06/09/17 14:13 Consult to Physician [CONS] Routine Consulting Provider: Jacky Chapman Call Completed to Consulting Physician: Yes OT Evaluation and Treatment [CONS] Routine Please Evaluate and Treat. OT Reason for Consult: Strengthening This query below is only for informational purposes and is not editable. PT Evaluation and Treatment [CONS] Routine Please Evaluate and Treat. PT Reason for Consult: Strengthening This query below is only for informational purposes and is not editable. - Patient Instructions Diet: Usual Diet as Tolerated Activity: Apply Ice, As Tolerated Driving: Do Not Drive Showering/Bathing: May Shower Wound/Incision Care: Keep Operative Site/Wound Site Clean and Dry, Change Dressing Daily Notify Provider of: Fever, Increased Pain, Swelling and Redness, Drainage, Nausea and/or Vomiting - Discharge Plan Prescriptions/Med Rec: Acetaminophen/oxyCODONE [Percocet 325-5 MG] 1 tab PO Q4H PRN #90 tablet PRN Reason: Pain Diazepam [Valium] 2 mg PO BID PRN #40 tablet PRN Reason: Spasms Home Medications: Home Meds Flunisolide [Aerospan] 2 puff IH BID 02/17/17 [History] Gabapentin [Neurontin] 300 mg PO TID 06/09/17 [History] Acetaminophen/oxyCODONE [Percocet 325-5 MG] 1 tab PO Q4H PRN #90 tablet [Rx] Diazepam [Valium] 2 mg PO BID PRN #40 tablet 06/11/17 [Rx] Referrals: Saleem Snyder DO [Physician] - (1 month recheck) - Discharge Summary/Plan Comment DC Time >30 min.: Yes Discharge Summary/Plan Comment: At this time I'll discharge the patient. I did send her home on Percocet. She will see us back in 1 month. We'll start PT at that time. Patient will continue to wear the brace daily. She will notify us if she has any other issues. - Patient Data Vitals - Most Recent: Last Vital Signs Temp 35.8 C 06/12/17 07:00 Pulse 86 06/12/17 07:00 Resp 16 06/12/17 07:00 BP 140/83 06/12/17 07:00 Pulse Ox 97 06/12/17 07:00 Weight - Most Recent: 201 lb 4.795 oz Med Orders - Current: Current Medications Discontinued Medications Al Hydroxide/Mg Hydroxide (Mag-Al Plus) 30 ml PO Q4H PRN PRN Reason: Indigestion Albuterol (Proventil Neb Soln) 2.5 mg NEB Q4H PRN PRN Reason: Dyspnea Cefazolin Sodium (Ancef) Confirm Administered Dose 2 gm .ROUTE .STK-MED ONE Stop: 06/10/17 02:44 Ropivacaine 49.25 ml/Ketorolac Tromethamine 30 mg/Epinephrine HCl 0.5 mg/ Clonidine HCl 80 mcg/ Sodium Chloride 48.45 ml 0 ml INJECT ONETIME ONE Stop: 06/09/17 09:31 Last Admin: 06/09/17 13:54 Dose: 100 ml Dexamethasone (Dexamethasone) Confirm Administered Dose 4 mg .ROUTE .STK-MED ONE Stop: 06/09/17 08:56 Dexamethasone (Dexamethasone) 10 mg IVPUSH Q6H [place] Stop: 06/10/17 20:15 Last Admin: 06/10/17 02:56 Dose: Not Given Dexamethasone (Dexamethasone) Confirm Administered Dose 4 mg .ROUTE .STK-MED ONE Stop: 06/10/17 02:37 Dexamethasone (Dexamethasone) 10 mg IVPUSH Q6H [place] Stop: 06/11/17 02:01 Last Admin: 06/11/17 01:41 Dose: 10 mg Diazepam (Valium) 5 mg IVPUSH Q6H PRN PRN Reason: Spasms Last Admin: 06/09/17 20:58 Dose: 5 mg Diazepam (Valium) 2 mg PO BID PRN PRN Reason: Pain Last Admin: 06/11/17 21:53 Dose: 2 mg Ephedrine Sulfate (Ephedrine Sulfate) Confirm Administered Dose 50 mg .ROUTE .STK-MED ONE Stop: 06/10/17 04:16 Fentanyl (Sublimaze) Confirm Administered Dose 400 mcg .ROUTE .STK-MED ONE Stop: 06/09/17 08:57 Fentanyl Citrate (Fentanyl 0.05 Mg/Ml Vial) Confirm Administered Dose 50 mcg .ROUTE .STK-MED ONE Stop: 06/09/17 08:57 Fentanyl Citrate (Fentanyl 0.05 Mg/Ml Vial) Confirm Administered Dose 50 mcg .ROUTE .STK-MED ONE Stop: 06/09/17 12:03 Fentanyl Citrate (Fentanyl 0.05 Mg/Ml Vial) Confirm Administered Dose 50 mcg .ROUTE .[facility] ONE Stop: 06/10/17 02:38 Gabapentin (Neurontin) 300 mg PO ONETIME ONE Stop: 06/09/17 08:01 Last Admin: 06/09/17 08:12 Dose: 300 mg Gabapentin (Neurontin) 300 mg PO TID [facility] Last Admin: 06/10/17 08:36 Dose: Not Given Gelatin (Gelfoam) 2 gm MISC ONETIME ONE Stop: 06/09/17 15:01 Last Admin: 06/09/17 15:57 Dose: Not Given Glycopyrrolate (Robinul) Confirm Administered Dose 1 mg .ROUTE .[facility] ONE Stop: 06/10/17 02:37 Hydromorphone HCl (Dilaudid) 1 mg IVPUSH Q2H PRN PRN Reason: Pain Last Admin: 06/10/17 20:31 Dose: 1 mg Lactated Ringer's (Ringers, Lactated) 1,000 mls @ 100 mls[facility]hr [facility] Last Admin: 06/12/17 02:18 Dose: 100 mls/hr Cefazolin Sodium 2 gm/ Sodium (Chloride) 50 mls @ 100 mls/hr IV ONETIME ONE Stop: 06/09/17 09:59 Last Admin: 06/09/17 11:28 Dose: 100 mls/hr Ketamine HCl 100 mg/ Sodium (Chloride) 100 mls @ 15.7 mls/hr IV ASDIRECTED [facility] Stop: 06/09/17 12:00 Tranexamic Acid 920 mg/ Sodium (Chloride) 59.2 mls @ 236.8 mls/hr IV Q3H [facility] Stop: 06/09/17 12:44 Last Admin: 06/09/17 15:52 Dose: Not Given Cefazolin Sodium 2 gm/ Sodium (Chloride) 50 mls @ 100 mls/hr IV Q8H [facility] Stop: 06/10/17 06:44 Last Admin: 06/09/17 15:55 Dose: Not Given Cefazolin Sodium 2 gm/ Sodium (Chloride) 50 mls @ 100 mls/hr IV Q8H [facility] Stop: 06/10/17 10:29 Last Admin: 06/10/17 10:03 Dose: 100 mls/hr Lactated Ringer's (Ringers, Lactated) Confirm Administered Dose 1,000 mls @ as directed .ROUTE .STK-MED ONE Stop: 06/10/17 04:07 Lactated Ringer's (Ringers, Lactated) Confirm Administered Dose 1,000 mls @ as directed .ROUTE .STK-MED ONE Stop: 06/10/17 05:41 Ketamine HCl (Ketalar) 26 mg IV ONETIME ONE Stop: 06/09/17 09:31 Last Admin: 06/09/17 15:53 Dose: Not Given Magnesium Hydroxide (Milk Of Magnesia) 30 ml PO BID PRN PRN Reason: Constipation Last Admin: 06/12/17 09:52 Dose: 30 ml Midazolam HCl (Versed 1 Mg/Ml) Confirm Administered Dose 2 mg .ROUTE .STK-MED ONE Stop: 06/10/17 02:37 Mometasone Furoate (Asmanex 220 Mcg) 0 puff INH DAILYRT [facility] Last Admin: 06/12/17 07:04 Dose: 2 puff Mometasone Furoate/Formoterol Fumar (Dulera 200-5 Mcg) 0 puff IH DAILYRT [facility] Last Admin: 06/10/17 07:42 Dose: Not Given Naloxone HCl (Narcan) 0.2 mg IVPUSH ONETIME PRN PRN Reason: Oversedation Stop: 06/09/17 14:14 Neostigmine Methylsulfate (Neostigmine) Confirm Administered Dose 5 mg .ROUTE .STK-MED ONE Stop: 06/09/17 08:56 Neostigmine Methylsulfate (Neostigmine) Confirm Administered Dose 5 mg .ROUTE .STK-MED ONE Stop: 06/10/17 02:37 Verify Scopolamine (Patch) 0 each TOP DAILY [facility] Last Admin: 06/12/17 08:28 Dose: Not Given Ondansetron HCl (Zofran) Confirm Administered Dose 4 mg .ROUTE .STK-MED ONE Stop: 06/09/17 08:56 Ondansetron HCl (Zofran) 8 mg IVPUSH Q4H PRN PRN Reason: Nausea/Vomiting Ondansetron HCl (Zofran) Confirm Administered Dose 4 mg .ROUTE .STK-MED ONE Stop: 06/10/17 02:37 Oxycodone/Acetaminophen (Percocet 325-5 Mg) 2 tab PO Q4H PRN PRN Reason: Pain Last Admin: 06/12/17 07:58 Dose: 2 tab Povidone Iodine (Betadine 10% Soln) Confirm Administered Dose 1 ml .ROUTE .STK- MED ONE Stop: 06/09/17 06:43 Last Admin: 06/09/17 12:20 Dose: 30 ml Povidone Iodine (Betadine 10% Soln) Confirm Administered Dose 1 ml .ROUTE .STK- MED ONE Stop: 06/10/17 03:31 Last Admin: 06/10/17 04:50 Dose: 30 ml Povidone Iodine (Betadine 10% Soln) Confirm Administered Dose 1 ml .ROUTE .STK- MED ONE Stop: 06/10/17 05:34 Last Admin: 06/10/17 05:30 Dose: 10 ml Propofol (Diprivan 20 Ml) Confirm Administered Dose 200 mg .ROUTE .STK-MED ONE Stop: 06/09/17 08:56 Propofol (Diprivan 20 Ml) Confirm Administered Dose 600 mg .ROUTE .STK-MED ONE Stop: 06/09/17 12:20 Propofol (Diprivan 20 Ml) Confirm Administered Dose 200 mg .ROUTE .STK-MED ONE Stop: 06/09/17 13:22 Propofol (Diprivan 20 Ml) Confirm Administered Dose 200 mg .ROUTE .STK-MED ONE Stop: 06/10/17 02:37 Rocuronium [place] (Zemuron) Confirm Administered Dose 50 mg .ROUTE .STK-MED ONE Stop: 06/09/17 08:56 Rocuronium [place] (Zemuron) Confirm Administered Dose 50 mg .ROUTE .STK-MED ONE Stop: 06/10/17 02:37 Scopolamine (Transderm-Scop) 1.5 mg TOP Q72H [place] Stop: 06/12/17 06:00 Last Admin: 06/09/17 08:12 Dose: 1.5 mg Senna (Senna) 8.6 mg PO BID PRN PRN Reason: Constipation Sodium Chloride (Normal Saline) 1,000 ml IRR .STK-MED ONE Stop: 06/09/17 12:22 Last Admin: 06/09/17 12:21 Dose: 1,000 ml Sodium Chloride (Saline Flush) 10 ml FLUSH ASDIRECTED PRN PRN Reason: Keep Vein Open Succinylcholine Chloride (Quelicin) Confirm Administered Dose 200 mg .ROUTE .STK -MED ONE Stop: 06/09/17 08:56 Succinylcholine Chloride (Quelicin) Confirm Administered Dose 200 mg .ROUTE .STK -MED ONE Stop: 06/10/17 02:37 Thrombin (Thrombin-Jmi) Confirm Administered Dose 15,000 unit .ROUTE .STK-MED ONE Stop: 06/09/17 06:43 Last Admin: 06/09/17 12:20 Dose: 10,000 unit Thrombin (Thrombin-Jmi) Confirm Administered Dose 15,000 unit .ROUTE .STK-MED ONE Stop: 06/10/17 03:31 Last Admin: 06/10/17 04:20 Dose: 10,000 unit Zolpidem Tartrate (Ambien) 5 mg PO BEDTIME PRN PRN Reason: Sleep *Q Meaningful Use (DIS) - VTE *Q VTE Criteria *Q: - Stroke *Q Stroke Criteria *Q: - AMI *Q AMI Criteria *Q:
== END 2017-06-12 10:31 | disposition home or self-care (01) | DRG 460 ==
LOC: JP.SDS 07:52 → JP.SDSSCHI 07:52 → EDSTATUS 09:15 → JP.MS 14:13
PROVIDERS: ADMIT Orthopaedic Surgery; ATTEND Orthopaedic Surgery
PROC: 00NY0ZZ Release Lumbar Spinal Cord, Open Approach (ICD-10-PCS; principal; 2017-06-09)
PROC: 0SG00AJ Fusion of Lumbar Vertebral Joint with Interbody Fusion Device, Posterior Approach, Anterior Column, Open Approach (ICD-10-PCS; principal; 2017-06-09)
PROC: 0SB20ZZ Excision of Lumbar Vertebral Disc, Open Approach (ICD-10-PCS; principal; 2017-06-09)
PROC: 0QW004Z Revision of Internal Fixation Device in Lumbar Vertebra, Open Approach (ICD-10-PCS; 2017-06-09)
DX: M48.06 Spinal stenosis, lumbar region (principal); T84.226A Displacement of internal fixation device of vertebrae, initial encounter; M43.16 Spondylolisthesis, lumbar region; M54.16 Radiculopathy, lumbar region; M54.9 Dorsalgia, unspecified; F32.9 Major depressive disorder, single episode, unspecified; G89.29 Other chronic pain; Z86.711 Personal history of pulmonary embolism; H54.7 Unspecified visual loss; Z87.891 Personal history of nicotine dependence
CPT/HCPCS: 36415; 72131; 76001; 80048; 81001; 85025; 94640-76; 94762; 97110-GP; 97112-GP; 97162-GP; 97165-GO; 97530-GP; 97535-GP; 97760-GP; A9270-GY; C1713; J0171; J0330; J0690; J0735; J1100; J1170; J1885; J2250; J2405; J2704; J2795; J3010; J3360; J7030; J7040; J7050; J7120

== ENCOUNTER 2017-08-03 11:25 | Emergency (ER) | payer MEDICAID ==
[2017-08-03 12:22] VITALS: BP 122/90
--- NOTE | 2017-08-03 12:46 | EDM.PDOC ---
ED HPI GENERAL MEDICAL PROBLEM - General Chief Complaint: Genitourinary Problem Stated Complaint: UTI? Time Seen by Provider: 08/03/17 12:30 Source of Information: Reports: Patient, Family History Limitations: Reports: No Limitations - History of Present Illness INITIAL COMMENTS - FREE TEXT/NARRATIVE: pt had back surgery in May. She started last nite with urinary frequency and severe burning. Onset: Other ( last nite. ) Duration: Hour(s):, Getting Worse Location: Reports: Abdomen Quality: Reports: Sharp Associated Symptoms: Reports: Other ( chilling and severe urinary burning. ) Lower Vaginal Pain Score (Numeric/FACES): 8 - Related Data Allergies Allergy/AdvReac Type Severity Reaction Status Date / Time No Known Allergies Allergy Verified 08/03/17 12:17 Home Meds: Home Meds Flunisolide [Aerospan] 2 puff IH BID 02/17/17 [History] Gabapentin [Neurontin] 300 mg PO TID 06/09/17 [History] Past Medical History HEENT History: Reports: Impaired Vision Other HEENT History: wears glasses/contacts Cardiovascular History: Reports: Blood Clots/VTE/DVT Respiratory History: Reports: PE Other Respiratory History: Non productive cough past 3 years-PE 07/2016 and 2016 Genitourinary History: Reports: UTI, Recurrent [employer] History: Reports: 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, Musculoskeletal History: Reports: Back Pain, Chronic Other Musculoskeletal History: pelvis fx finger fx Psychiatric History: Reports: Depression Endocrine/Metabolic History: Reports: Obesity/BMI 30+ - Infectious Disease History Infectious Disease History: Reports: Chicken Pox - Past Surgical History HEENT Surgical History: Reports: Tonsillectomy, Other (See Below) Other HEENT Surgeries/Procedures: "ear drums replaced" GI Surgical History: Reports: Hernia, Inguinal Female Surgical History: Reports: Section Neurological Surgical History: Reports: Lumbar Spine Social & Family History - Family History HEENT: Reports: Impaired Vision Cardiac: Reports: High Cholesterol, Hypertension Endocrine/Metabolic: Reports: Diabetes, type II Dermatologic: Reports: Other (See Below) Other Dermatologic Family History: mother skin cancer Oncologic: Reports: Other (See Below) Other Oncologic Family History: unknown to pt. - Tobacco Use Smoking Status *Q: Current Every Day Smoker Years of Tobacco use: 30 Packs/Tins Daily: 0.1 Used Tobacco, but Quit: Yes Month Tobacco Last Used: 6 Second Hand Smoke Exposure: Yes - Caffeine Use Caffeine Use: Reports: None - Alcohol Use Days Per Week of Alcohol Use: 2 Number of Drinks Per Day: 2 Total Drinks Per Week: 4 - Recreational Drug Use Recreational Drug Use: No ED ROS GENERAL - Review of Systems Review Of Systems: See Below Constitutional: Reports: Chills HEENT: Reports: No Symptoms Respiratory: Reports: No Symptoms Cardiovascular: Reports: No Symptoms Endocrine: Reports: No Symptoms GI/Abdominal: Reports: No Symptoms : Reports: Dysuria, Frequency, Pain, Urgency Musculoskeletal: Reports: No Symptoms Skin: Reports: No Symptoms Neurological: Reports: No Symptoms Psychiatric: Reports: Anxiety ED EXAM, RENAL/ - Physical Exam Exam: See Below Text/Narrative:: pt arrived with urinary burning and frequency.This started last nite. Exam Limited By: No Limitations General Appearance: Alert, Anxious, Mild Distress Ears: Normal External Exam Nose: Normal Inspection Throat/Mouth: Normal Inspection Head: Atraumatic Neck: Normal Inspection Respiratory/Chest: No Respiratory Distress Cardiovascular: Regular Rate, Rhythm GI/Abdominal: Soft, Non-Tender Rectal (Female) Exam: Deferred Extremities: Other (pt just had back surgery. ) Neurological: Alert, Oriented, Normal Cognition Psychiatric: Normal Affect Course - Vital Signs Last Recorded V/S: Last Vital Signs Temp 36.2 C 08/03/17 12:19 Pulse 95 08/03/17 12:19 Resp 16 08/03/17 12:19 BP 122/90 08/03/17 12:19 Pulse Ox 93 L 08/03/17 12:19 - Orders/Labs/Meds Orders: Active Orders 24 hr Category Date Time Status CULTURE URINE [RM] Stat Lab 08/03/17 12:41 Uncollected Labs: Laboratory Tests 08/03/17 Range/Units 12:16 Urine Color Brown Urine Appearance Turbid Urine pH 5.0 (4.5-8.0) Ur Specific [place] 1.020 (1.008-1.030) Urine Protein 30 H (NEGATIVE) mg/dL Urine Glucose (UA) Normal (NEGATIVE) mg/dL Urine Ketones Negative (NEGATIVE) mg/dL Urine Occult Blood Large (NEGATIVE) Urine Nitrite Negative (NEGATIVE) Urine Bilirubin Small (NEGATIVE) Urine Urobilinogen Normal (NORMAL) mg/dL Ur Leukocyte Esterase Large (NEGATIVE) Urine RBC Packed H (0-5) Urine WBC Packed H (0-5) Ur Epithelial Cells Few Amorphous Sediment Not seen Urine Bacteria Many Urine Mucus Moderate - Re-Assessments/Exams Free Text/Narrative Re-Assessment/Exam: 08/03/17 12:53 urine appears very infected will set up a culture. Departure - Departure Time of Disposition: 12:44 Disposition: Home, Self-Care 01 Condition: Fair Clinical Impression: UTI (urinary tract infection) - Discharge Information Referrals: PCP,None [Primary Care Provider] - Forms: ED Department Discharge Care Plan Goals: push fluids, pyridium 300mg tid for 2 days, cipro 500mg bid for 10 days, rtc if not improving. - My Orders Last 24 Hours: My Active Orders 08/03/17 12:41 CULTURE URINE [RM] Stat - Assessment/Plan Last 24 Hours: My Active Orders 08/03/17 12:41 CULTURE URINE [RM] Stat
== END 2017-08-03 13:11 | disposition home or self-care (01) ==
LOC: JP.ED 11:25
DX: N39.0 Urinary tract infection, site not specified (principal); F17.210 Nicotine dependence, cigarettes, uncomplicated; E66.9 Obesity, unspecified; Z68.35 Body mass index [BMI] 35.0-35.9, adult; Z90.49 Acquired absence of other specified parts of digestive tract
CPT/HCPCS: 81001; 87086; 87088; 87186; 99284

== ENCOUNTER 2017-09-26 14:53 | Emergency (ER) | payer MEDICAID ==
[2017-09-26 15:21] VITALS: BP 140/102
--- NOTE | 2017-09-26 15:44 | EDM.PDOC ---
ED HPI GENERAL MEDICAL PROBLEM - General Chief Complaint: Back Pain or Injury Stated Complaint: BACK PAIN/SHOTS ON WED AM Time Seen by Provider: 09/26/17 15:32 Source of Information: Reports: Patient, Family, Old Records, RN Notes Reviewed History Limitations: Reports: No Limitations - History of Present Illness INITIAL COMMENTS - FREE TEXT/NARRATIVE: 51-year-old female presents emergency department day complaint of low back pain , she has been dealing with low back pain since May of this year she states she recently underwent steroid injections without any relief the pain is so intense that she cannot sleep rates her pain 10 out of 10 there is no loss of bowel or bladder no fevers she has she has tried gabapentin for the pain with minimal relief Back Pain Score (Numeric/FACES): 10 - Related Data Allergies Allergy/AdvReac Type Severity Reaction Status Date / Time No Known Allergies Allergy Verified 09/26/17 15:11 Home Meds: Home Meds Flunisolide [Aerospan] 2 puff IH BID 02/17/17 [History] Gabapentin [Neurontin] 300 mg PO TID 06/09/17 [History] Ibuprofen 600 mg PO Q4HR 09/26/17 [History] Past Medical History HEENT History: Reports: Impaired Vision Other HEENT History: wears glasses/contacts Cardiovascular History: Reports: Blood Clots/VTE/DVT Respiratory History: Reports: PE Other Respiratory History: Non productive cough past 3 years-PE 07/2016 and 2016 Genitourinary History: Reports: UTI, Recurrent 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 PT History: Reports: 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, Musculoskeletal History: Reports: Back Pain, Chronic Other Musculoskeletal History: pelvis fx finger fx Psychiatric History: Reports: Depression Endocrine/Metabolic History: Reports: Obesity/BMI 30+ - Infectious Disease History Infectious Disease History: Reports: Chicken Pox - Past Surgical History HEENT Surgical History: Reports: Tonsillectomy, Other (See Below) Other HEENT Surgeries/Procedures: "ear drums replaced" GI Surgical History: Reports: Hernia, Inguinal Neurological Surgical History: Reports: Lumbar Spine Social & Family History - Family History HEENT: Reports: Impaired Vision Cardiac: Reports: High Cholesterol, Hypertension Endocrine/Metabolic: Reports: Diabetes, type II Dermatologic: Reports: Other (See Below) Other Dermatologic Family History: mother skin cancer Oncologic: Reports: Other (See Below) Other Oncologic Family History: unknown to pt. - Tobacco Use Smoking Status *Q: Current Every Day Smoker Years of Tobacco use: 40 Packs/Tins Daily: 0.5 Used Tobacco, but Quit: Yes Month Tobacco Last Used: 6 Second Hand Smoke Exposure: Yes - Caffeine Use Caffeine Use: Reports: None - Alcohol Use Days Per Week of Alcohol Use: 2 Number of Drinks Per Day: 2 Total Drinks Per Week: 4 - Recreational Drug Use Recreational Drug Use: No ED ROS GENERAL - Review of Systems Review Of Systems: See Below Constitutional: Reports: No Symptoms Respiratory: Reports: No Symptoms Cardiovascular: Reports: No Symptoms GI/Abdominal: Reports: No Symptoms Musculoskeletal: Reports: Back Pain Neurological: Reports: Numbness, Tingling ED EXAM,LOWER BACK PAIN/INJURY - Physical Exam Exam: See Below Text/Narrative:: Examination of the back surgical wounds clean dry and intact well-healed she does have paraspinal tenderness no spinal tenderness she is able to ambulate without difficulty Exam Limited By: No Limitations General Appearance: Alert, WD/WN, No Apparent Distress Course - Vital Signs Last Recorded V/S: Last Vital Signs Temp 97.8 F 09/26/17 15:05 Pulse 89 09/26/17 15:05 Resp 20 09/26/17 15:05 BP 140/102 H 09/26/17 15:05 Pulse Ox 97 09/26/17 15:05 Departure - Departure Time of Disposition: 15:43 Disposition: Home, Self-Care 01 Condition: Fair Clinical Impression: Low back pain Qualifiers: Chronicity: chronic Back pain laterality: bilateral Sciatica presence: without sciatica Qualified Code(s): M54.5 - Low back pain; G89.29 - Other chronic pain; G89.29 - Other chronic pain - Discharge Information Referrals: Rubens Orlando MD [Primary Care Provider] - Additional Instructions: Continue to use Tylenol or ibuprofen as needed for pain control, use the hydrocodone as needed for breakthrough pain, use Flexeril as needed for muscle spasm, please keep your follow-up appointments with primary care, orthopedics an upcoming neurology, call return to the emergency department worsening of symptoms - Assessment/Plan Plan: Assessment Acuity = chronic Site and laterality = low back pain Etiology = postsurgical unclear etiology Manifestations = none Location of injury = Home Lab values = none Plan She was provided 6 hydrocodone 5/325 one tab by mouth 3 times a day when necessary, Flexeril 1 tablet by mouth 3 times a day when necessary 10 mg total # 15 she does have follow-up with neurology in November recommend keep follow-ups with primary care and orthopedic surgery Patient was in agreement with the plan all questions were answered, they were instructed to return to the emergency department or call for worsening symptoms. This note was dictated using [employer] voice recognition software please call with any questions.
== END 2017-09-26 15:49 | disposition home or self-care (01) ==
LOC: JP.ED 14:53
DX: G89.29 Other chronic pain (principal); M54.5 Low back pain; F17.210 Nicotine dependence, cigarettes, uncomplicated
CPT/HCPCS: 99283

== ENCOUNTER 2017-10-23 12:59 | Emergency (ER) | payer MEDICAID ==
[2017-10-23 13:34] VITALS: BP 143/102
[2017-10-23] MEDS ORDERED: Ketorolac 60 MG/2 ML SDV IM ONE (14:10)
[2017-10-23] MEDS ORDERED: Acetaminophen/oxyCODONE 325-7.5 MG Tab PO ONE (14:11)
--- NOTE | 2017-10-23 14:17 | EDM.PDOC ---
ED HPI GENERAL MEDICAL PROBLEM - General Chief Complaint: Back Pain or Injury Stated Complaint: BACK PAIN Time Seen by Provider: 10/23/17 14:12 Source of Information: Reports: Patient History Limitations: Reports: No Limitations - History of Present Illness INITIAL COMMENTS - FREE TEXT/NARRATIVE: pt arrived with severe pain in the left buttock and down the left leg. Onset: Today Duration: Week(s):, Getting Worse Location: Reports: Back Associated Symptoms: Reports: Other (pt had surgery in May and she is having severe pain in the lpower back and pain going down her left leg over the buttock. ) Lower Back Pain Score (Numeric/FACES): 9 - Related Data Allergies Allergy/AdvReac Type Severity Reaction Status Date / Time baclofen Allergy Itching Verified 10/23/17 13:57 gabapentin AdvReac Other Verified 10/23/17 13:57 Home Meds: Home Meds Flunisolide [Aerospan] 2 puff IH BID 02/17/17 [History] Ibuprofen 600 mg PO Q4HR 09/26/17 [History] Past Medical History HEENT History: Reports: Impaired Vision Other HEENT History: wears glasses/contacts Cardiovascular History: Reports: Blood Clots/VTE/DVT Respiratory History: Reports: PE Other Respiratory History: Non productive cough past 3 years-PE 07/2016 and 2016 Genitourinary History: Reports: UTI, Recurrent 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: 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, Musculoskeletal History: Reports: Back Pain, Chronic Other Musculoskeletal History: pelvis fx finger fx Psychiatric History: Reports: Depression Endocrine/Metabolic History: Reports: Obesity/BMI 30+ - Infectious Disease History Infectious Disease History: Reports: Chicken Pox - Past Surgical History HEENT Surgical History: Reports: Tonsillectomy, Other (See Below) Other HEENT Surgeries/Procedures: "ear drums replaced" GI Surgical History: Reports: Hernia, Inguinal Neurological Surgical History: Reports: Lumbar Spine Other Neurological Surgeries/Procedures: Surgery May 2017 Social & Family History - Family History HEENT: Reports: Impaired Vision Cardiac: Reports: High Cholesterol, Hypertension Endocrine/Metabolic: Reports: Diabetes, type II Dermatologic: Reports: Other (See Below) Other Dermatologic Family History: mother skin cancer Oncologic: Reports: Other (See Below) Other Oncologic Family History: unknown to pt. - Tobacco Use Smoking Status *Q: Current Every Day Smoker Years of Tobacco use: 40 Packs/Tins Daily: 0.5 Used Tobacco, but Quit: Yes Month Tobacco Last Used: 6 Second Hand Smoke Exposure: Yes - Caffeine Use Caffeine Use: Reports: None - Alcohol Use Days Per Week of Alcohol Use: 2 Number of Drinks Per Day: 2 Total Drinks Per Week: 4 - Recreational Drug Use Recreational Drug Use: No ED ROS GENERAL - Review of Systems Review Of Systems: See Below Constitutional: Reports: No Symptoms HEENT: Reports: No Symptoms Respiratory: Reports: No Symptoms Cardiovascular: Reports: No Symptoms Endocrine: Reports: No Symptoms GI/Abdominal: Reports: No Symptoms : Reports: No Symptoms Musculoskeletal: Reports: Back Pain, Other (pain going down the left leg. ) Skin: Reports: No Symptoms ED EXAM,LOWER BACK PAIN/INJURY - Physical Exam Exam: See Below Text/Narrative:: pt arrived stating she had a lumbar fusion in May of this year. She is having areas of numbness in the rt thigh area. She is having severe pain going down the left leg. She is walking with a walker and states she has to use that. Exam Limited By: No Limitations General Appearance: Alert, Anxious, Moderate Distress Ears: Normal TMs Nose: Normal Inspection Throat/Mouth: Normal Inspection Head: Atraumatic Neck: Carotid Bruit Respiratory/Chest: No Respiratory Distress Cardiovascular: Regular Rate, Rhythm GI/Abdominal: Soft, Non-Tender (Female) Exam: Deferred Rectal (Female) Exam: Deferred Back Exam: Other (pt has tenderness in her lower lumbar area. She has increased pain when her left leg is lifted. ) Extremities: Normal Inspection Neurological: Alert, Other ( walking with a walker ) Psychiatric: Anxious Course - Vital Signs Last Recorded V/S: Last Vital Signs Temp 36.8 C 10/23/17 13:33 Pulse 105 H 10/23/17 13:33 Resp 20 10/23/17 13:33 BP 143/102 H 10/23/17 13:33 Pulse Ox 96 10/23/17 13:33 - Orders/Labs/Meds Meds: Medications Discontinued Medications Generic Name Dose Route Start Last Admin Trade Name Freq PRN Reason Stop Dose Admin Ketorolac Tromethamine 60 mg 10/23/17 14:10 10/23/17 14:32 Toradol IM 10/23/17 14:11 60 mg ONETIME ONE Administration Oxycodone/Acetaminophen 1 tab 10/23/17 14:11 10/23/17 14:34 Percocet 325-7.5 Mg PO 10/23/17 14:12 1 tab ONETIME ONE Administration Departure - Departure Time of Disposition: 15:05 Disposition: Home, Self-Care 01 Condition: Fair Clinical Impression: Fusion of lumbar spine, Radicular pain of left lower extremity Low back pain Qualifiers: Chronicity: chronic Back pain laterality: bilateral Sciatica presence: without sciatica Qualified Code(s): M54.5 - Low back pain - Discharge Information Referrals: Rubens Orlando MD [Primary Care Provider] - Forms: ED Department Discharge Care Plan Goals: ice and heat to the low back, rest, keep appt with Maryanne on Wednesday, motrin 600mg q8h, percocet 5/325 q6h prn for pain. --#10
== END 2017-10-23 15:15 | disposition home or self-care (01) ==
LOC: JP.ED 12:59
DX: M54.16 Radiculopathy, lumbar region (principal); F17.210 Nicotine dependence, cigarettes, uncomplicated; Z88.8 Allergy status to other drugs, medicaments and biological substances; Z98.1 Arthrodesis status
CPT/HCPCS: 96372; 99283; A9270; J1885

== ENCOUNTER 2017-11-01 22:01 | Emergency (ER) | payer MEDICAID ==
[2017-11-01 22:21] VITALS: BP 155/80
[2017-11-01] MEDS ORDERED: HYDROmorphone 1 MG/ML Syringe IM ONE (23:23)
--- NOTE | 2017-11-01 23:29 | EDM.PDOC ---
ED HPI GENERAL MEDICAL PROBLEM - General Chief Complaint: Back Pain or Injury Stated Complaint: pain meds Time Seen by Provider: 11/01/17 23:06 Source of Information: Reports: Patient, Old Records, RN Notes Reviewed History Limitations: Reports: No Limitations - History of Present Illness INITIAL COMMENTS - FREE TEXT/NARRATIVE: 51-year-old female presents to the emergency department today for treatment of pain, she has a long history of chronic back pain has been evaluated in the emergency department multiple times was evaluated in orthopedics today by her surgeon felt she is not a candidate for opioid medication has her set up for consultation with neurology as well as epidural injections with pain management , I did review the orthopedic note as well as the pain management note who also felt she was not a candidate for opiate indications. She is very frustrated and upset with me that I will not provide opiate medications for her Lower Back Pain Score (Numeric/FACES): 9 - Related Data Allergies Allergy/AdvReac Type Severity Reaction Status Date / Time baclofen Allergy Itching Verified 11/01/17 22:24 gabapentin AdvReac Other Verified 11/01/17 22:24 Home Meds: Home Meds Flunisolide [Aerospan] 2 puff IH BID 02/17/17 [History] Ibuprofen 600 mg PO Q4HR 09/26/17 [History] Past Medical History HEENT History: Reports: Impaired Vision Other HEENT History: wears glasses/contacts Cardiovascular History: Reports: Blood Clots/VTE/DVT Respiratory History: Reports: PE Other Respiratory History: Non productive cough past 3 years-PE 07/2016 and 2016 Genitourinary History: Reports: UTI, Recurrent 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, Musculoskeletal History: Reports: Back Pain, Chronic Other Musculoskeletal History: s/p TLIF L4-5 06/09/17 Psychiatric History: Reports: Depression Endocrine/Metabolic History: Reports: Obesity/BMI 30+ - Infectious Disease History Infectious Disease History: Reports: Chicken Pox - Past Surgical History HEENT Surgical History: Reports: Tonsillectomy, Other (See Below) Other HEENT Surgeries/Procedures: "ear drums replaced" GI Surgical History: Reports: Hernia, Inguinal Other Neurological Surgeries/Procedures: Surgery May 2017 Social & Family History - Family History HEENT: Reports: Impaired Vision Cardiac: Reports: High Cholesterol, Hypertension Endocrine/Metabolic: Reports: Diabetes, type II Dermatologic: Reports: Other (See Below) Other Dermatologic Family History: mother skin cancer Oncologic: Reports: Other (See Below) Other Oncologic Family History: unknown to pt. - Tobacco Use Smoking Status *Q: Current Every Day Smoker Years of Tobacco use: 40 Packs/Tins Daily: 0.5 Used Tobacco, but Quit: No Month Tobacco Last Used: 6 Second Hand Smoke Exposure: Yes - Caffeine Use Caffeine Use: Reports: Soda - Alcohol Use Days Per Week of Alcohol Use: 2 Number of Drinks Per Day: 2 Total Drinks Per Week: 4 - Recreational Drug Use Recreational Drug Use: No ED ROS GENERAL - Review of Systems Review Of Systems: See Below Constitutional: Reports: No Symptoms HEENT: Reports: No Symptoms Respiratory: Reports: No Symptoms Cardiovascular: Reports: No Symptoms GI/Abdominal: Reports: No Symptoms : Reports: No Symptoms Musculoskeletal: Reports: Back Pain Skin: Reports: No Symptoms Neurological: Reports: Numbness, Tingling ED EXAM,LOWER BACK PAIN/INJURY - Physical Exam Exam: See Below Exam Limited By: No Limitations General Appearance: Alert, WD/WN, No Apparent Distress Respiratory/Chest: No Respiratory Distress Course - Vital Signs Last Recorded V/S: Last Vital Signs Temp 98.1 F 11/01/17 22:40 Pulse 96 11/01/17 22:40 Resp 20 11/01/17 22:40 BP 155/80 H 11/01/17 22:40 Pulse Ox 93 L 11/01/17 22:40 - Orders/Labs/Meds Orders: Active Orders 24 hr Category Date Time Status HYDROmorphone [Dilaudid] Med 11/01/17 23:23 Once 1 mg IM ONETIME ONE Medication Orders Hydromorphone HCl (Dilaudid) 1 mg IM ONETIME ONE Stop: 11/01/17 23:24 Meds: Medications Generic Name Dose Route Start Last Admin Trade Name Freq PRN Reason Stop Dose Admin Hydromorphone HCl 1 mg 11/01/17 23:23 Dilaudid IM 11/01/17 23:24 ONETIME ONE Departure - Departure Time of Disposition: 23:27 Disposition: Home, Self-Care 01 Condition: Poor Clinical Impression: Radicular pain of left lower extremity, Spondylolisthesis, lumbar region Low back pain Qualifiers: Back pain laterality: bilateral Sciatica presence: without sciatica - Discharge Information Referrals: Rubens Orlando MD [Primary Care Provider] - Additional Instructions: Resume your regular medications, please keep your follow-up appointments with neurology and pain management - My Orders Last 24 Hours: My Active Orders 11/01/17 23:23 HYDROmorphone [Dilaudid] 1 mg IM ONETIME ONE - Assessment/Plan Last 24 Hours: My Active Orders 11/01/17 23:23 HYDROmorphone [Dilaudid] 1 mg IM ONETIME ONE Plan: Assessment Acuity = acute Site and laterality = chronic low back pain Etiology = unclear etiology Manifestations = numbness and tingling both lower extremities Location of injury = Home Lab values = none Plan She was provided 1 mg Dilaudid IM 1 she is to keep her follow-up appointments with neurology as well as pain management This note was dictated using [employer] voice recognition software please call with any questions on syntax or shanta.
== END 2017-11-01 23:44 | disposition home or self-care (01) ==
LOC: JP.ED 22:01
DX: M43.16 Spondylolisthesis, lumbar region (principal); F17.210 Nicotine dependence, cigarettes, uncomplicated; F32.9 Major depressive disorder, single episode, unspecified; Z88.8 Allergy status to other drugs, medicaments and biological substances
CPT/HCPCS: 96372; 99283; J1170

== ENCOUNTER 2018-02-21 11:24 | Emergency (ER) | payer MEDICAID ==
[2018-02-21 11:35] VITALS: BP 145/84
[2018-02-21] MEDS ORDERED: diphenhydrAMINE 50 MG/ML SDV IVPUSH ONE (11:51)
[2018-02-21] MEDS ORDERED: methylPREDNISolone Sodium Succinate 125 MG/2 ML SDV IVPUSH ONE (11:51)
--- NOTE | 2018-02-21 11:51 | EDM.PDOC ---
ED HPI GENERAL MEDICAL PROBLEM - General Chief Complaint: ENT Problem Stated Complaint: UPSET STOMACH Time Seen by Provider: 02/21/18 11:35 Source of Information: Reports: Patient History Limitations: Reports: No Limitations - History of Present Illness INITIAL COMMENTS - FREE TEXT/NARRATIVE: 52-year-old female woke up this morning with a fullness in the back of her throat which seemed to get a little worse as the morning has gone on and now is stable. She feels like she has a "hernia" in the back of her throat making it difficult to swallow and making her feel very anxious. She has a headache and has had some cold symptoms over the past 2 days. No fever or chills. She has not had anything like this in the past. No shortness of breath. Onset: Unknown/Unsure Severity: Moderate Associated Symptoms: Reports: Other (Mild cold symptoms and a headache over the past 2 days) Throat Pain Score (Numeric/FACES): 2 - Related Data Allergies Allergy/AdvReac Type Severity Reaction Status Date / Time baclofen Allergy Itching Verified 11/01/17 22:24 gabapentin AdvReac Other Verified 11/01/17 22:24 Home Meds: Home Meds Ibuprofen 600 mg PO Q4HR PRN 09/26/17 [History] Albuterol Sulfate [Proair Hfa] 8.5 gm IH Q4H PRN 11/19/17 [History] Past Medical History HEENT History: Reports: Impaired Vision Other HEENT History: wears glasses/contacts Cardiovascular History: Reports: Blood Clots/VTE/DVT Respiratory History: Reports: PE Other Respiratory History: Non productive cough past 3 years-PE 07/2016 and 2016 Genitourinary History: Reports: UTI, Recurrent 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: 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, Musculoskeletal History: Reports: Back Pain, Chronic Other Musculoskeletal History: s/p TLIF L4-5 06/09/17 Psychiatric History: Reports: Depression Endocrine/Metabolic History: Reports: Obesity/BMI 30+ - Infectious Disease History Infectious Disease History: Reports: Chicken Pox - Past Surgical History HEENT Surgical History: Reports: Tonsillectomy, Other (See Below) Other HEENT Surgeries/Procedures: "ear drums replaced" GI Surgical History: Reports: Hernia, Inguinal Other Neurological Surgeries/Procedures: Surgery May 2017 Social & Family History - Family History HEENT: Reports: Impaired Vision Cardiac: Reports: High Cholesterol, Hypertension Endocrine/Metabolic: Reports: Diabetes, type II Dermatologic: Reports: Other (See Below) Other Dermatologic Family History: mother skin cancer Oncologic: Reports: Other (See Below) Other Oncologic Family History: unknown to pt. - Tobacco Use Smoking Status *Q: Current Every Day Smoker Years of Tobacco use: 40 Packs/Tins Daily: 0.5 Used Tobacco, but Quit: No Month/Year Tobacco Last Used: 6 Second Hand Smoke Exposure: Yes - Caffeine Use Caffeine Use: Reports: Soda - Alcohol Use Days Per Week of Alcohol Use: 2 Number of Drinks Per Day: 2 Total Drinks Per Week: 4 - Recreational Drug Use Recreational Drug Use: No ED ROS ENT - Review of Systems Review Of Systems: See Below Constitutional: Denies: Fever, Chills HEENT: Reports: Rhinitis, Throat Swelling Respiratory: Reports: Cough (Mild intermittent cough) GI/Abdominal: Denies: Nausea, Vomiting Musculoskeletal: Reports: Other (Some chronic low back pain that she is dealing with orthopedics) Skin: Reports: No Symptoms. Denies: Rash ED EXAM, ENT - Physical Exam Exam: See Below Exam Limited By: No Limitations General Appearance: Alert, No Apparent Distress, Anxious Mouth/Throat: Other (This patient has fairly significant uvular and soft palate edema. No erythema. No mucosal edema of the cheeks or tongue or lips.) Respiratory/Chest: No Respiratory Distress, Lungs Clear Course - Vital Signs Last Recorded V/S: Last Vital Signs Temp 96.3 F 02/21/18 11:40 Pulse 83 02/21/18 11:40 Resp 18 02/21/18 11:40 BP 145/84 H 02/21/18 11:40 Pulse Ox 97 02/21/18 11:40 - Orders/Labs/Meds Meds: Medications Discontinued Medications Generic Name Dose Route Start Last Admin Trade Name Freq PRN Reason Stop Dose Admin Diphenhydramine HCl 25 mg 02/21/18 11:51 02/21/18 11:55 Benadryl IVPUSH 02/21/18 11:52 25 mg ONETIME ONE Administration Methylprednisolone Sodium Succinate 125 mg 02/21/18 11:51 02/21/18 11:58 Solu-Medrol IVPUSH 02/21/18 11:52 125 mg ONETIME ONE Administration - Re-Assessments/Exams Free Text/Narrative Re-Assessment/Exam: 02/21/18 11:53 This patient appears to have a localized angioedema-like reaction in the posterior throat and and uvula. Likely viral in origin with her cold symptoms and no history of medications. An IV was started and she was given 125 mg of Solu-Medrol along with 25 mg of IV Benadryl. Encouraged to use oral cold foods to decrease swelling and return anytime if worsening. 02/21/18 12:28 Patient was experiencing some improvement prior to discharge. Continue with cold foods for the afternoon and repeat Benadryl as needed. Return if worsening. Departure - Departure Time of Disposition: 12:43 Disposition: Home, Self-Care 01 Condition: Good Clinical Impression: Uvular swelling - Discharge Information Instructions: Uvulitis Referrals: Rubens Orlando MD [Primary Care Provider] - Forms: ED Department Discharge Care Plan Goals: Continue with cold foods, and repeat Benadryl 25-50 mg every 4 hours if needed. Return anytime if worsening or concerns.
== END 2018-02-21 12:43 | disposition home or self-care (01) ==
LOC: JP.ED 11:24
DX: K13.79 Other lesions of oral mucosa (principal); F17.210 Nicotine dependence, cigarettes, uncomplicated; Z88.8 Allergy status to other drugs, medicaments and biological substances
CPT/HCPCS: 96374; 96375; 99283; J1200; J2930

== ENCOUNTER 2018-04-03 13:18 | Emergency (ER) | payer MEDICAID ==
[2018-04-03 14:12] VITALS: BP 146/89
--- NOTE | 2018-04-03 14:40 | EDM.PDOC ---
ED HPI GENERAL MEDICAL PROBLEM - General Chief Complaint: Neck Problem Stated Complaint: NECK PAIN Time Seen by Provider: 04/03/18 14:30 Source of Information: Reports: Patient History Limitations: Reports: No Limitations - History of Present Illness INITIAL COMMENTS - FREE TEXT/NARRATIVE: Patti presents to the emergency room today for complaints of right sided neck pain after she woke up this morning. She states she has tried to use acetaminophen for pain without relief. She denies change in vision, fever, chills, nausea, vomiting, diarrhea, bladder or bowel changes. She denies injury or trauma to her neck. neck Pain Score (Numeric/FACES): 10 - Related Data Allergies Allergy/AdvReac Type Severity Reaction Status Date / Time baclofen Allergy Itching Verified 04/03/18 14:12 gabapentin AdvReac Other Verified 04/03/18 14:12 Home Meds: Home Meds Ibuprofen 600 mg PO Q4HR PRN 09/26/17 [History] Albuterol Sulfate [Proair Hfa] 8.5 gm IH Q4H PRN 11/19/17 [History] Albuterol Sulfate 3 ml INH BEDTIME 04/03/18 [History] Fluticasone/Salmeterol [Advair 100-50] 1 puff INH BID 04/03/18 [History] Past Medical History HEENT History: Reports: Impaired Vision Other HEENT History: wears glasses/contacts Cardiovascular History: Reports: Blood Clots/VTE/DVT Respiratory History: Reports: PE Other Respiratory History: Non productive cough past 3 years-PE 07/2016 and 2016 Genitourinary History: Reports: UTI, Recurrent 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, Musculoskeletal History: Reports: Back Pain, Chronic Other Musculoskeletal History: s/p TLIF L4-5 06/09/17 Psychiatric History: Reports: Depression Endocrine/Metabolic History: Reports: Obesity/BMI 30+ - Infectious Disease History Infectious Disease History: Reports: Chicken Pox - Past Surgical History HEENT Surgical History: Reports: Tonsillectomy, Other (See Below) Other HEENT Surgeries/Procedures: "ear drums replaced" GI Surgical History: Reports: Hernia, Inguinal Other Neurological Surgeries/Procedures: Surgery May 2017 Social & Family History - Family History HEENT: Reports: Impaired Vision Cardiac: Reports: High Cholesterol, Hypertension Endocrine/Metabolic: Reports: Diabetes, type II Dermatologic: Reports: Other (See Below) Other Dermatologic Family History: mother skin cancer Oncologic: Reports: Other (See Below) Other Oncologic Family History: unknown to pt. - Tobacco Use Smoking Status *Q: Current Every Day Smoker Years of Tobacco use: 30 Packs/Tins Daily: 0.4 - Caffeine Use Caffeine Use: Reports: Soda - Recreational Drug Use Recreational Drug Use: No ED ROS GENERAL - Review of Systems Review Of Systems: See Below Constitutional: Denies: Fever, Chills, Weakness HEENT: Denies: Dental Pain, Ear Pain, Eye Pain, Hearing Loss, Throat Pain, Throat Swelling, Vision Change Respiratory: Reports: No Symptoms Cardiovascular: Reports: No Symptoms Endocrine: Reports: No Symptoms GI/Abdominal: Reports: No Symptoms : Reports: No Symptoms Musculoskeletal: Reports: Neck Pain, Back Pain, Muscle Pain, Muscle Stiffness, Other (She complains of right sided neck pain and chronic low back pain. ). Denies: Shoulder Pain, Arm Pain, Hand Pain, Leg Pain, Joint Pain, Joint Swelling Skin: Reports: No Symptoms Neurological: Reports: No Symptoms Psychiatric: Reports: No Symptoms Hematologic/Lymphatic: Reports: No Symptoms Immunologic: Reports: No Symptoms ED EXAM, GENERAL - Physical Exam Exam: See Below Free Text/Narrative:: Patti is an alert and oriented 52 year old female presenting with complaints of posterior right neck pain since this morning. She also requests nino hose for bilateral lower leg edema. Exam Limited By: No Limitations General Appearance: Alert, WD/WN, Mild Distress Eye Exam: Bilateral Eye: EOMI, Normal Inspection, PERRL Ears: Normal External Exam, Normal Canal, Hearing Grossly Normal, Normal TMs Ear Exam: Bilateral Ear: Canal Normal, TM normal, Bleeding Nose: Normal Inspection, Normal Mucosa, No Blood Throat/Mouth: Normal Inspection, Normal Lips, Normal Gums, Normal Oropharynx, Normal Voice, No Airway Compromise Head: Atraumatic, Normocephalic Neck: Normal Inspection, Supple, Full Range of Motion, Tender Lateral, Other ( right side tenderness, posterior/lateral). No: Limited Range of Motion, Lymphadenopathy (R) Respiratory/Chest: No Respiratory Distress, Lungs Clear, Normal Breath Sounds, No Accessory Muscle Use, Chest Non-Tender Cardiovascular: Normal Peripheral Pulses, Regular Rate, Rhythm, No Edema, No Gallop, No Murmur, No Rub Peripheral Pulses: 1+: Dorsalis Pedis (L), Dorsalis Pedis (R), 2+: Radial (L), Radial (R) Back Exam: Normal Inspection, Full Range of Motion. No: CVA Tenderness (R), CVA Tenderness (L) Extremities: Normal Inspection, Normal Range of Motion, Non-Tender, Normal Capillary Refill, Pedal Edema, Other (Pedal edema 2+) Neurological: Alert, Oriented, CN II-XII Intact, Normal Cognition, Normal Gait, No Motor/Sensory Deficits Psychiatric: Normal Affect, Normal Mood Skin Exam: Warm, Dry, Intact, Normal Color, No Rash Lymphatic: No Adenopathy Course - Vital Signs Last Recorded V/S: Last Vital Signs Temp 35.6 C 04/03/18 14:15 Pulse 87 04/03/18 14:15 Resp 18 04/03/18 14:15 BP 146/89 H 04/03/18 14:15 Pulse Ox 97 04/03/18 14:15 - Orders/Labs/Meds Meds: Medications Discontinued Medications Generic Name Dose Route Start Last Admin Trade Name Tj PRN Reason Stop Dose Admin Cyclobenzaprine HCl 5 mg 04/03/18 14:51 04/03/18 15:01 Flexeril PO 04/03/18 14:52 5 mg ONETIME ONE Administration Departure - Departure Time of Disposition: 14:52 Disposition: Home, Self-Care 01 Condition: Good Clinical Impression: Neck muscle strain - Discharge Information Instructions: Muscle Strain, [id number] Referrals: Rubens Orlando MD [Primary Care Provider] - Forms: ED Department Discharge Additional Instructions: You have been evaluated in the emergency room for neck muscle strain. You can take ibuprofen 600mg to 800mg by mouth three times a day as needed for pain. You can use acetaminophen 500 to 1000mg by mouth three times a day as well for pain if needed. Use diclofenac gel to area to help with pain. Use of hot pack and stretching can also help. Take cyclobenzaprine 5mg by mouth twice per day as needed for muscle strain. Follow up with Dr. Orlando as scheduled this week for chronic pain and follow up of neck strain. Return for worsening, issues or concern. - Assessment/Plan Assessment:: Neck muscle strain Chronic back pain Plan: Patient evaluated in the emergency room for neck muscle strain. She can take ibuprofen 600mg to 800mg by mouth three times a day as needed for pain. She can use acetaminophen 500 to 1000mg by mouth three times a day as well for pain if needed. Use diclofenac gel to area to help with pain. Use of hot pack and stretching can also help. Take cyclobenzaprine 5mg by mouth twice per day as needed for muscle strain. Follow up with Dr. Orlando as scheduled this week for chronic pain and follow up of neck strain. Return for worsening, issues or concern.
[2018-04-03] MEDS ORDERED: Cyclobenzaprine 10 MG Tab PO ONE (14:51)
== END 2018-04-03 15:07 | disposition home or self-care (01) ==
LOC: JP.ED 13:18
DX: S16.1XXA Strain of muscle, fascia and tendon at neck level, initial encounter (principal); F17.210 Nicotine dependence, cigarettes, uncomplicated; Z88.8 Allergy status to other drugs, medicaments and biological substances; X58.XXXA Exposure to other specified factors, initial encounter
CPT/HCPCS: 99283; A9270

== ENCOUNTER 2018-05-01 13:33 | Emergency (ER) | payer MEDICAID ==
--- NOTE | 2018-05-01 15:02 | EDM.PDOC ---
ED HPI GENERAL MEDICAL PROBLEM - General Chief Complaint: Lower Extremity Injury/Pain Stated Complaint: PAIN IN LEFT LEG AND LOW BACK Time Seen by Provider: 05/01/18 15:01 Source of Information: Reports: Patient History Limitations: Reports: No Limitations - History of Present Illness INITIAL COMMENTS - FREE TEXT/NARRATIVE: pt hs pin in the caldf of the left leg and the inner \\thigh. Onset: Gradual Duration: Day(s): Location: Reports: Lower Extremity, Left Associated Symptoms: Reports: No Other Symptoms Left Leg Pain Score (Numeric/FACES): 8 - Related Data Allergies Allergy/AdvReac Type Severity Reaction Status Date / Time baclofen Allergy Itching Verified 04/03/18 14:12 gabapentin AdvReac Other Verified 04/03/18 14:12 Home Meds: Home Meds Ibuprofen 600 mg PO Q4HR PRN 09/26/17 [History] Albuterol Sulfate [Proair Hfa] 8.5 gm IH Q4H PRN 11/19/17 [History] Albuterol Sulfate 3 ml INH BEDTIME 04/03/18 [History] Fluticasone/Salmeterol [Advair 100-50] 1 puff INH BID 04/03/18 [History] Gabapentin [Neurontin] 300 mg PO DAILY 05/01/18 [History] Past Medical History HEENT History: Reports: Impaired Vision Other HEENT History: wears glasses/contacts Cardiovascular History: Reports: Blood Clots/VTE/DVT Respiratory History: Reports: PE Other Respiratory History: Non productive cough past 3 years-PE 07/2016 and 2016 Genitourinary History: Reports: UTI, Recurrent 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, Musculoskeletal History: Reports: Back Pain, Chronic Other Musculoskeletal History: s/p TLIF L4-5 06/09/17 Psychiatric History: Reports: Depression Endocrine/Metabolic History: Reports: Obesity/BMI 30+ - Infectious Disease History Infectious Disease History: Reports: Chicken Pox - Past Surgical History HEENT Surgical History: Reports: Tonsillectomy, Other (See Below) Other HEENT Surgeries/Procedures: "ear drums replaced" GI Surgical History: Reports: Hernia, Inguinal Other Neurological Surgeries/Procedures: Surgery May 2017 Social & Family History - Family History HEENT: Reports: Impaired Vision Cardiac: Reports: High Cholesterol, Hypertension Endocrine/Metabolic: Reports: Diabetes, type II Dermatologic: Reports: Other (See Below) Other Dermatologic Family History: mother skin cancer Oncologic: Reports: Other (See Below) Other Oncologic Family History: unknown to pt. - Tobacco Use Smoking Status *Q: Heavy Tobacco Smoker Years of Tobacco use: 40 Packs/Tins Daily: 1 - Caffeine Use Caffeine Use: Reports: Coffee, Soda - Recreational Drug Use Recreational Drug Use: No Review of Systems - Review of Systems Review Of Systems: See Below Constitutional: Reports: No Symptoms Eyes: Reports: No Symptoms Ears: Reports: No Symptoms Nose: Reports: No Symptoms Mouth/Throat: Reports: No Symptoms Respiratory: Reports: No Symptoms Cardiovascular: Reports: No Symptoms GI/Abdominal: Reports: No Symptoms Genitourinary: Reports: No Symptoms Musculoskeletal: Reports: Other ( pain in the calf and inner aspect of the left thigh. ) ED EXAM, GENERAL - Physical Exam Exam: See Below Free Text/Narrative:: pt has pain in the left lower leg and slight swelling. She does have \\a past history of dvt and at this point is not on blood thinners. Exam Limited By: No Limitations General Appearance: Alert Ears: Normal TMs Nose: Normal Inspection Throat/Mouth: Normal Inspection Head: Atraumatic Neck: Normal Inspection Respiratory/Chest: No Respiratory Distress Cardiovascular: Regular Rate, Rhythm Rectal (Female) Exam: Deferred Back Exam: Normal Inspection Extremities: Other ( Left leg has slight tenderness and very slight swelling. She is tender in the calf of the leg and she does have tenderness that follows the inner thigh, ) Neurological: Alert, Oriented, Normal Cognition Psychiatric: Normal Affect Course - Vital Signs Last Recorded V/S: Last Vital Signs Temp 36.3 C 05/01/18 14:34 Pulse 89 05/01/18 14:34 Resp 16 05/01/18 14:34 BP 105/72 05/01/18 16:06 Pulse Ox 97 05/01/18 14:34 - Orders/Labs/Meds Labs: Laboratory Tests 05/01/18 05/01/18 Range/Units 15:29 15:29 WBC 7.4 (4.5-11.0) K/uL RBC 4.92 (3.30-5.50) M/uL Hgb 14.7 D (12.0-15.0) g/dL Hct 43.9 (36.0-48.0) % MCV 89 (80-98) fL MCH 30 (27-31) pg MCHC 34 (32-36) % Plt Count 197 (150-400) K/uL Neut % (Auto) 51 (36-66) % Lymph % (Auto) 36 (24-44) % [place] % (Auto) 12 H (2-6) % Eos % (Auto) 2 (2-4) % Baso % (Auto) 0 (0-1) % Sodium 141 (140-148) mmol/L Potassium 3.7 (3.6-5.2) mmol/L Chloride 104 (100-108) mmol/L Carbon Dioxide 29 (21-32) mmol/L Anion Gap 8.4 (5.0-14.0) mmol/L BUN 17 D (7-18) mg/dL Creatinine 0.9 (0.6-1.0) mg/dL Est Cr Clr Drug Dosing 59.11 mL/min Estimated GFR (MDRD) > 60 (>60) Glucose 110 H (74-106) mg/dL Calcium 8.8 (8.5-10.1) mg/dL Total Bilirubin 0.3 (0.2-1.0) mg/dL AST 72 H D (15-37) U/L ALT 153 H (12-78) U/L Alkaline Phosphatase 101 (46-116) U/L Total Protein 7.6 (6.4-8.2) g/dL Albumin 3.5 (3.4-5.0) g/dL Globulin 4.1 H (2.3-3.5) g/dL Albumin/Globulin Ratio 0.9 L (1.2-2.2) Meds: Medications Discontinued Medications Generic Name Dose Route Start Last Admin Trade Name Freq PRN Reason Stop Dose Admin Hydrocodone Bitart/Acetaminophen 1 tab 05/01/18 16:25 05/01/18 16:33 [place] 325-5 Mg PO 05/01/18 16:26 1 tab ONETIME ONE Administration Ketorolac Tromethamine 60 mg 05/01/18 16:25 05/01/18 16:33 Toradol IM 05/01/18 16:26 60 mg ONETIME ONE Administration - Re-Assessments/Exams Free Text/Narrative Re-Assessment/Exam: 05/01/18 16:28 lab work was found to be normal and the doppler in the left leg was neg. Departure - Departure Time of Disposition: 16:28 Disposition: Home, Self-Care 01 Condition: Fair Clinical Impression: Muscle strain of left lower extremity - Discharge Information Instructions: Muscle Strain Referrals: Rubens Orlando MD [Primary Care Provider] - Forms: ED Department Discharge Care Plan Goals: moist warm packs, \\ tordol 10mg qid for the next 5 days with food. [place] 5/325 q6h prn rakesh severe pain #6
[2018-05-01 16:07] VITALS: BP 105/72
[2018-05-01] MEDS ORDERED: Acetaminophen/HYDROcodone 325-5 MG Tab PO ONE (16:25)
[2018-05-01] MEDS ORDERED: Ketorolac 60 MG/2 ML SDV IM ONE (16:25)
--- NOTE | 2018-05-02 09:52 | US ---
VL Duplex Lwr Ext Veins Ltd Lt INDICATION: pain in the left calf and inner thigh FINDINGS: Ultrasound examination of the lower extremity using Doppler and compressive technique demon strates that the common femoral, femoral, and popliteal veins are patent, and negative for thrombus. The calf veins were segmentally visualized and are negative where seen. IMPRESSION: Negative for deep venous thrombosis.
== END 2018-05-01 16:37 | disposition home or self-care (01) ==
LOC: JP.ED 13:33
DX: S86.912A Strain of unspecified muscle(s) and tendon(s) at lower leg level, left leg, initial encounter (principal); F17.210 Nicotine dependence, cigarettes, uncomplicated; F32.9 Major depressive disorder, single episode, unspecified; Z79.899 Other long term (current) drug therapy; Z88.1 Allergy status to other antibiotic agents; Z88.8 Allergy status to other drugs, medicaments and biological substances; X58.XXXA Exposure to other specified factors, initial encounter
CPT/HCPCS: 36415; 80053; 85025; 93971; 96372; 99284; A9270; J1885

== ENCOUNTER 2018-08-01 13:49 | Emergency (ER) | payer MEDICAID ==
[2018-08-01 15:05] VITALS: BP 126/76
--- NOTE | 2018-08-01 16:05 | EDM.PDOC ---
ED HPI GENERAL MEDICAL PROBLEM - General Chief Complaint: Eye Problems Stated Complaint: RIGHT EYE CONJUNCTIVITIS? Time Seen by Provider: 08/01/18 15:49 Source of Information: Reports: Patient, Old Records, RN Notes Reviewed History Limitations: Reports: No Limitations - History of Present Illness INITIAL COMMENTS - FREE TEXT/NARRATIVE: 52-year-old female presents to emergency department today with complaint of itching and watering eyes, she states is been ongoing for the last 2 months, but did do trial of antibiotics without any relief. She has no problem with vision - Related Data Allergies Allergy/AdvReac Type Severity Reaction Status Date / Time baclofen Allergy Itching Verified 04/03/18 14:12 gabapentin AdvReac Other Verified 04/03/18 14:12 Home Meds: Home Meds Ibuprofen 600 mg PO Q4HR PRN 09/26/17 [History] Albuterol Sulfate [Proair Hfa] 8.5 gm IH Q4H PRN 11/19/17 [History] Albuterol Sulfate 3 ml INH BEDTIME 04/03/18 [History] Fluticasone/Salmeterol [Advair 100-50] 1 puff INH BID 04/03/18 [History] Gabapentin [Neurontin] 300 mg PO DAILY 05/01/18 [History] Past Medical History HEENT History: Reports: Impaired Vision Other HEENT History: wears glasses/contacts Cardiovascular History: Reports: Blood Clots/VTE/DVT Respiratory History: Reports: PE Other Respiratory History: Non productive cough past 3 years-PE 07/2016 and 2016 Genitourinary History: Reports: UTI, Recurrent 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: 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, Musculoskeletal History: Reports: Back Pain, Chronic Other Musculoskeletal History: s/p TLIF L4-5 06/09/17 Psychiatric History: Reports: Depression Endocrine/Metabolic History: Reports: Obesity/BMI 30+ - Infectious Disease History Infectious Disease History: Reports: Chicken Pox - Past Surgical History HEENT Surgical History: Reports: Tonsillectomy, Other (See Below) Other HEENT Surgeries/Procedures: "ear drums replaced" GI Surgical History: Reports: Hernia, Inguinal Other Neurological Surgeries/Procedures: Surgery May 2017 Social & Family History - Family History HEENT: Reports: Impaired Vision Cardiac: Reports: High Cholesterol, Hypertension Endocrine/Metabolic: Reports: Diabetes, type II Dermatologic: Reports: Other (See Below) Other Dermatologic Family History: mother skin cancer Oncologic: Reports: Other (See Below) Other Oncologic Family History: unknown to pt. - Tobacco Use Smoking Status *Q: Heavy Tobacco Smoker Years of Tobacco use: 40 Packs/Tins Daily: 0.2 - Caffeine Use Caffeine Use: Reports: Coffee, Soda - Recreational Drug Use Recreational Drug Use: No ED ROS GENERAL - Review of Systems Review Of Systems: See Below Constitutional: Reports: No Symptoms HEENT: Reports: Eye Discharge. Denies: Eye Pain, Vision Change ED EXAM GENERAL W FULL EYE - Physical Exam Exam: See Below Exam Limited By: No Limitations General Appearance: Alert, WD/WN, No Apparent Distress Visual Acuity (R) 20/: 15 Visual Acuity (L) 20/: 25 With Correction: Yes Eyelids: Bilateral: Normal Appearance Conjunctiva & Sclera: Bilateral: Injected Extraocular Movements: Bilateral: Intact Pupillary Size: Bilateral: 5 mm Pupillary Reaction: Bilateral: Brisk Anterior Chamber: Bilateral: Normal Appearance Course - Vital Signs Last Recorded V/S: Last Vital Signs Temp 96.8 F 08/01/18 15:07 Pulse 79 08/01/18 15:07 Resp 16 08/01/18 15:07 BP 126/76 08/01/18 15:07 Pulse Ox 98 08/01/18 15:07 Departure - Departure Time of Disposition: 16:04 Disposition: Home, Self-Care 01 Condition: Good Clinical Impression: Allergic conjunctivitis Qualifiers: Laterality: bilateral Qualified Code(s): H10.13 - Acute atopic conjunctivitis, bilateral - Discharge Information Referrals: Rubens Orlando MD [Primary Care Provider] - Additional Instructions: Try the eyedrops twice a day until clearing follow-up with primary care or eye care provider in the next 7-10 days if no improvement, call or return to the emergency department with worsening of symptoms - Assessment/Plan Plan: Assessment Acuity = acute Site and laterality = allergic conjunctivitis Etiology = unknown etiology Manifestations = none Location of injury = Home Lab values = none Plan Will try Patanol 0.1% solution 1 drop both eyes twice a day until clear recommended follow-up with eye care provider in the next 7-10 days if no improvement This note was dictated using [employer] voice recognition software please call with any questions on syntax or grammar.
== END 2018-08-01 16:08 | disposition home or self-care (01) ==
LOC: JP.ED 13:49
DX: H10.13 Acute atopic conjunctivitis, bilateral (principal); F17.210 Nicotine dependence, cigarettes, uncomplicated; Z88.8 Allergy status to other drugs, medicaments and biological substances; Z79.899 Other long term (current) drug therapy
CPT/HCPCS: 99283

== ENCOUNTER 2019-01-30 10:05 | Emergency (ER) | payer MEDICAID ==
[2019-01-30 10:25] VITALS: BP 117/70
--- NOTE | 2019-01-30 10:49 | EDM.PDOC ---
ED HPI GENERAL MEDICAL PROBLEM - General Chief Complaint: Back Pain or Injury Stated Complaint: FELL AND INJURED BACK AND SHOULDER Time Seen by Provider: 01/30/19 10:40 Source of Information: Reports: Patient History Limitations: Reports: No Limitations - History of Present Illness INITIAL COMMENTS - FREE TEXT/NARRATIVE: 53-year-old female slipped on the ice yesterday, today she has back pain in the thoracic spine radiating down into both hips. She has had back surgery so when she slipped she tried to protect her back, rotated and landed on her right palm. Her shoulder is a little stiff as well. She wants a note that she doesn't have to participate in group therapy over the next 2 days. Onset: Sudden Duration: Day(s): (Fell yesterday, pain has slowly worsened especially over the last 6 hours) back Pain Score (Numeric/FACES): 5 - Related Data Allergies Allergy/AdvReac Type Severity Reaction Status Date / Time baclofen Allergy Itching Verified 01/30/19 10:31 Home Meds: Home Meds Gabapentin [Neurontin] 600 mg PO Q2HR PRN 05/01/18 [History] Cholecalciferol (Vitamin D3) [Vitamin D] 5,000 unit PO DAILY 01/30/19 [History] DULoxetine HCl [Duloxetine HCl] 90 mg PO DAILY 01/30/19 [History] Furosemide 20 mg PO DAILY 01/30/19 [History] Past Medical History HEENT History: Reports: Impaired Vision Other HEENT History: wears glasses/contacts Cardiovascular History: Reports: Blood Clots/VTE/DVT Respiratory History: Reports: PE Other Respiratory History: Non productive cough past 3 years-PE 07/2016 and 2016 Genitourinary History: Reports: UTI, Recurrent 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: 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, Musculoskeletal History: Reports: Back Pain, Chronic Other Musculoskeletal History: s/p TLIF L4-5 06/09/17 Psychiatric History: Reports: Depression Endocrine/Metabolic History: Reports: Obesity/BMI 30+ - Infectious Disease History Infectious Disease History: Reports: Chicken Pox - Past Surgical History HEENT Surgical History: Reports: Tonsillectomy, Other (See Below) Other HEENT Surgeries/Procedures: "ear drums replaced" GI Surgical History: Reports: Hernia, Inguinal Other Neurological Surgeries/Procedures: Surgery May 2017 Social & Family History - Family History HEENT: Reports: Impaired Vision Cardiac: Reports: High Cholesterol, Hypertension Endocrine/Metabolic: Reports: Diabetes, type II Dermatologic: Reports: Other (See Below) Other Dermatologic Family History: mother skin cancer Oncologic: Reports: Other (See Below) Other Oncologic Family History: unknown to pt. - Tobacco Use Smoking Status *Q: Former Smoker Used Tobacco, but Quit: Yes Month/Year Tobacco Last Used: 2018 - Caffeine Use Caffeine Use: Reports: Soda - Recreational Drug Use Recreational Drug Use: No ED ROS GENERAL - Review of Systems Review Of Systems: See Below Constitutional: Denies: Fever HEENT: Reports: No Symptoms Respiratory: Denies: Shortness of Breath, Pleuritic Chest Pain Cardiovascular: Denies: Chest Pain GI/Abdominal: Denies: Abdominal Pain, Nausea, Vomiting : Reports: No Symptoms Musculoskeletal: Reports: Shoulder Pain (Right side), Back Pain Skin: Reports: Other (Very tiny abrasion on the right hand from the fall) ED EXAM, UPPER BACK/NECK PAIN - Physical Exam Exam: See Below Exam Limited By: No Limitations General Appearance: Alert, No Apparent Distress Head Exam: Atraumatic Neck Exam: Non-Tender Back Exam: Decreased Range of Motion (Patient has parathoracic muscle tenderness to palpation and some spasm of the lumbar spine.) Extremities: Other (Shoulder has good active range of motion without significant tenderness) Course - Vital Signs Last Recorded V/S: Last Vital Signs Temp 97.4 F 01/30/19 10:30 Pulse 84 01/30/19 10:30 Resp 13 01/30/19 10:30 BP 117/70 01/30/19 10:30 Pulse Ox 94 L 01/30/19 10:30 - Re-Assessments/Exams Free Text/Narrative Re-Assessment/Exam: 01/30/19 10:46 Patient will be discharged with 15 doses of 10 mg Flexeril to take 3 times a day. I encouraged her to try to resume her regular activity but she insisted she wasn't able to go to group therapy so was given a note for 2 days. She can take anti-inflammatories along with the Flexeril and increase activity as tolerated. Departure - Departure Time of Disposition: 11:07 Disposition: Home, Self-Care 01 Condition: Good Clinical Impression: Strain of thoracic back region Right shoulder strain Qualifiers: Encounter type: initial encounter Qualified Code(s): S4.654D - Strain of unspecified muscle, fascia and tendon at shoulder and upper arm level, right arm , initial encounter - Discharge Information Instructions: Muscle Strain, [id number] Referrals: Rubens Orlando MD [Primary Care Provider] - Forms: ED Department Discharge Care Plan Goals: Continue your current medications, increase activity as tolerated and use Flexeril for muscle spasm over the next few days. Consider rechecking in 3-4 days if not improving satisfactorily. It would also be beneficial to take a regular dose of ibuprofen or naproxen.
== END 2019-01-30 11:07 | disposition home or self-care (01) ==
LOC: JP.ED 10:05
DX: S46.911A Strain of unspecified muscle, fascia and tendon at shoulder and upper arm level, right arm, initial encounter (principal); S29.012A Strain of muscle and tendon of back wall of thorax, initial encounter; Z87.891 Personal history of nicotine dependence; Z79.899 Other long term (current) drug therapy; Z88.8 Allergy status to other drugs, medicaments and biological substances; W00.0XXA Fall on same level due to ice and snow, initial encounter
CPT/HCPCS: 99283

== ENCOUNTER 2019-02-28 10:43 | Emergency (ER) | payer MEDICAID ==
[2019-02-28 11:59] VITALS: BP 122/76
--- NOTE | 2019-02-28 12:08 | EDM.PDOC ---
ED HPI GENERAL MEDICAL PROBLEM - General Chief Complaint: Respiratory Problem Stated Complaint: BAD COUGH, SORE THROAT Time Seen by Provider: 02/28/19 11:50 Source of Information: Reports: Patient History Limitations: Reports: No Limitations - History of Present Illness INITIAL COMMENTS - FREE TEXT/NARRATIVE: 53-year-old with a dry cough for the past 2 days. She also has a sore throat, no fevers or chills, no headache. Generalized fibromyalgia pain is a "8 out of 10". She is a smoker. Onset: Gradual Duration: Day(s): (2-3 days) Associated Symptoms: Reports: Malaise, Other (Difficulty sleeping). Denies: Fever/Chills, Headaches Upper Abdomen Pain Score (Numeric/FACES): 8 - Related Data Allergies Allergy/AdvReac Type Severity Reaction Status Date / Time baclofen Allergy Itching Verified 02/28/19 11:57 Home Meds: Home Meds Gabapentin [Neurontin] 600 mg PO Q2HR PRN 05/01/18 [History] Cholecalciferol (Vitamin D3) [Vitamin D] 5,000 unit PO DAILY 01/30/19 [History] DULoxetine HCl [Duloxetine HCl] 90 mg PO DAILY 01/30/19 [History] Furosemide 20 mg PO DAILY 01/30/19 [History] Past Medical History HEENT History: Reports: Impaired Vision Other HEENT History: wears glasses/contacts Cardiovascular History: Reports: Blood Clots/VTE/DVT Respiratory History: Reports: PE Other Respiratory History: Non productive cough past 3 years-PE 07/2016 and 2016 Genitourinary History: Reports: UTI, Recurrent 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: 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, Musculoskeletal History: Reports: Back Pain, Chronic Other Musculoskeletal History: s/p TLIF L4-5 06/09/17 Psychiatric History: Reports: Depression Endocrine/Metabolic History: Reports: Obesity/BMI 30+ - Infectious Disease History Infectious Disease History: Reports: Chicken Pox - Past Surgical History HEENT Surgical History: Reports: Tonsillectomy, Other (See Below) Other HEENT Surgeries/Procedures: "ear drums replaced" GI Surgical History: Reports: Hernia, Inguinal Neurological Surgical History: Reports: Lumbar Spine Other Neurological Surgeries/Procedures: Surgery May 2017 Social & Family History - Family History HEENT: Reports: Impaired Vision Cardiac: Reports: High Cholesterol, Hypertension Endocrine/Metabolic: Reports: Diabetes, type II Dermatologic: Reports: Other (See Below) Other Dermatologic Family History: mother skin cancer Oncologic: Reports: Other (See Below) Other Oncologic Family History: unknown to pt. - Tobacco Use Tobacco Use Comment: states she smokes 2 ciggs a day - Caffeine Use Caffeine Use: Reports: Soda - Recreational Drug Use Recreational Drug Use: No ED ROS GENERAL - Review of Systems Review Of Systems: See Below Constitutional: Denies: Fever, Chills HEENT: Reports: Throat Pain. Denies: Ear Pain, Rhinitis Respiratory: Reports: Cough. Denies: Shortness of Breath, Sputum Cardiovascular: Reports: Chest Pain (From coughing) GI/Abdominal: Denies: Abdominal Pain, Nausea, Vomiting Musculoskeletal: Reports: Muscle Pain (Generalized myalgias) Skin: Reports: No Symptoms Neurological: Denies: Headache ED EXAM, GENERAL - Physical Exam Exam: See Below Exam Limited By: No Limitations General Appearance: Alert, No Apparent Distress Eye Exam: Bilateral Eye: Normal Inspection Ears: Other (Small scars on her tympanic membranes from previous tube surgery, no fluid or inflammation) Throat/Mouth: Other (Minimal erythema of the pharynx no exudate) Head: Atraumatic Neck: No: Lymphadenopathy (R), Lymphadenopathy (L) Respiratory/Chest: No Respiratory Distress, Lungs Clear Cardiovascular: Regular Rate, Rhythm Course - Vital Signs Last Recorded V/S: Last Vital Signs Temp 97.8 F 02/28/19 12:00 Pulse 96 02/28/19 12:00 Resp 16 02/28/19 12:00 BP 122/76 02/28/19 12:00 Pulse Ox 95 02/28/19 12:00 - Re-Assessments/Exams Free Text/Narrative Re-Assessment/Exam: 02/28/19 12:07 Explained to the patient this is very likely a viral cold. She was given Tessalon Perles for cough suppression and encouraged to decrease her smoking as much as possible. She can return if worsening over the next several days such as fever or increased shortness of breath. Departure - Departure Time of Disposition: 12:17 Disposition: Home, Self-Care 01 Condition: Good Clinical Impression: Acute viral bronchitis - Discharge Information Instructions: Acute Bronchitis, Adult, [id number] Referrals: PCP,None [Primary Care Provider] - Forms: ED Department Discharge Care Plan Goals: Rest, fluids, and use Tessalon for cough suppression as prescribed. Consider rechecking in 2-3 days if not improving satisfactorily, or return sooner if worsening such as fever or increased shortness of breath.
== END 2019-02-28 12:21 | disposition home or self-care (01) ==
LOC: JP.ED 10:43
DX: J20.8 Acute bronchitis due to other specified organisms (principal); B97.89 Other viral agents as the cause of diseases classified elsewhere; F17.210 Nicotine dependence, cigarettes, uncomplicated; Z88.8 Allergy status to other drugs, medicaments and biological substances; Z79.899 Other long term (current) drug therapy
CPT/HCPCS: 99283

== ENCOUNTER 2019-03-09 11:53 | Emergency (ER) | payer MEDICAID ==
[2019-03-09 12:20] VITALS: BP 139/90
--- NOTE | 2019-03-09 13:01 | EDM.PDOC ---
ED HPI GENERAL MEDICAL PROBLEM - General Chief Complaint: Neck Problem Stated Complaint: NECK PAIN Time Seen by Provider: 03/09/19 12:50 Source of Information: Reports: Patient, Old Records, RN History Limitations: Reports: No Limitations - History of Present Illness INITIAL COMMENTS - FREE TEXT/NARRATIVE: 53 yo female presents with L posterior neck pain that began yesterday late afternoon. This is not associated with injury. It hurts to shrug her L shoulder or turn her head to the L. Has not taken anything for the pain. Has not tried to get in at the clinic. Got out of prison this morning and thinks its from sleeping on a poor mattress/pillow. Onset: Gradual Onset Date: 03/08/19 Onset Time: 17:00 Duration: Hour(s):, Constant Location: Reports: Neck (left, posterior) Quality: Reports: Ache, Burning Severity: Moderate Improves with: Reports: Rest Worsens with: Reports: Movement Context: Reports: Other (See HPI) Associated Symptoms: Reports: No Other Symptoms Treatments MASTER PILOT: Reports: Cold Therapy Left Lower Neck Pain Score (Numeric/FACES): 10 - Related Data Allergies Allergy/AdvReac Type Severity Reaction Status Date / Time baclofen Allergy Itching Verified 03/09/19 12:12 Home Meds: Home Meds Gabapentin [Neurontin] 600 mg PO Q2HR PRN 05/01/18 [History] Cholecalciferol (Vitamin D3) [Vitamin D] 5,000 unit PO DAILY 01/30/19 [History] DULoxetine HCl [Duloxetine HCl] 90 mg PO DAILY 01/30/19 [History] Furosemide 20 mg PO DAILY 01/30/19 [History] Past Medical History HEENT History: Reports: Impaired Vision Other HEENT History: wears glasses/contacts Cardiovascular History: Reports: Blood Clots/VTE/DVT Respiratory History: Reports: PE Other Respiratory History: Non productive cough past 3 years-PE 07/2016 and 2016 Genitourinary History: Reports: UTI, Recurrent 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: 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, Musculoskeletal History: Reports: Back Pain, Chronic Other Musculoskeletal History: s/p TLIF L4-5 06/09/17 Psychiatric History: Reports: Depression Endocrine/Metabolic History: Reports: Obesity/BMI 30+ - Infectious Disease History Infectious Disease History: Reports: Chicken Pox - Past Surgical History HEENT Surgical History: Reports: Tonsillectomy, Other (See Below) Other HEENT Surgeries/Procedures: "ear drums replaced" GI Surgical History: Reports: Hernia, Inguinal Neurological Surgical History: Reports: Lumbar Spine Other Neurological Surgeries/Procedures: Surgery May 2017 Social & Family History - Family History HEENT: Reports: Impaired Vision Cardiac: Reports: High Cholesterol, Hypertension Endocrine/Metabolic: Reports: Diabetes, type II Dermatologic: Reports: Other (See Below) Other Dermatologic Family History: mother skin cancer Oncologic: Reports: Other (See Below) Other Oncologic Family History: unknown to pt. - Tobacco Use Smoking Status *Q: Current Every Day Smoker Years of Tobacco use: 42 Packs/Tins Daily: 0.2 Used Tobacco, but Quit: No Second Hand Smoke Exposure: Yes - Caffeine Use Caffeine Use: Reports: Soda - Recreational Drug Use Recreational Drug Use: No ED ROS GENERAL - Review of Systems Review Of Systems: See Below Constitutional: Reports: No Symptoms HEENT: Reports: No Symptoms Respiratory: Reports: No Symptoms Cardiovascular: Reports: No Symptoms Musculoskeletal: Reports: Neck Pain (left, posterior), Muscle Stiffness (neck) Skin: Reports: No Symptoms Neurological: Reports: No Symptoms ED EXAM, UPPER BACK/NECK PAIN - Physical Exam Exam: See Below Exam Limited By: No Limitations General Appearance: Alert, WD/WN, No Apparent Distress, Obese Eye Exam: Bilateral Eye: Normal Inspection Throat/Mouth Exam: Normal Inspection, Normal Lips, Normal Oropharynx, Normal Voice, No Airway Compromise Head Exam: Atraumatic, Normocephalic Neck Exam: Normal Inspection, Limited Range of Motion (limited ROM to the left.) , Muscle Spasm (L trapezius), Painful Range of Motion, Paraspinous Muscle Tender (L cervical). 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 As Tested, No Motor/Sensory Deficits, Alert, Normal Mood/Affect, Oriented x 3 Skin Exam: Normal Color, Warm/Dry Lymphatic: No Adenopathy Course - Vital Signs Last Recorded V/S: Last Vital Signs Temp 36.6 C 03/09/19 12:18 Pulse 99 03/09/19 12:18 Resp 16 03/09/19 12:18 BP 139/90 03/09/19 12:18 Pulse Ox 94 L 03/09/19 12:18 Departure - Departure Time of Disposition: 13:10 Disposition: Home, Self-Care 01 Condition: Good Clinical Impression: Strain of left trapezius muscle Qualifiers: Encounter type: initial encounter Qualified Code(s): S46.812A - Strain of other muscles, fascia and tendons at shoulder and upper arm level, left arm, initial encounter - Discharge Information *PRESCRIPTION DRUG MONITORING PROGRAM REVIEWED*: No *COPY OF PRESCRIPTION DRUG MONITORING REPORT IN PATIENT CONNIE: No Instructions: Muscle Strain, [id number] Referrals: Rubens Orlando MD [Primary Care Provider] - Additional Instructions: Take Flexeril as directed. Apply moist heat to the affected area. Massage will help. Take ibuprofen and/or acetaminophen for added relief. Recheck with your doctor as needed.
== END 2019-03-09 13:10 | disposition home or self-care (01) ==
LOC: JP.ED 11:53
DX: S46.812A Strain of other muscles, fascia and tendons at shoulder and upper arm level, left arm, initial encounter (principal); F17.210 Nicotine dependence, cigarettes, uncomplicated; F32.9 Major depressive disorder, single episode, unspecified; Z79.899 Other long term (current) drug therapy; Z88.1 Allergy status to other antibiotic agents; X58.XXXA Exposure to other specified factors, initial encounter
CPT/HCPCS: 99282

== ENCOUNTER 2019-05-03 07:53 | Day surgery (SDC) | payer MEDICAID ==
[2019-05-03] MEDS ORDERED: Lactated Ringers 1,000 ML IV SCH (08:15)
[2019-05-03] MEDS ORDERED: Midazolam 1 MG/ML 2 ML SDV ONE (08:45)
[2019-05-03] MEDS ORDERED: fentaNYL 100 MCG/2 ML SDV ONE (08:45)
[2019-05-03] MEDS ORDERED: Propofol 200 MG/20 ML SDV ONE (08:45)
[2019-05-03 11:27] VITALS: BP 130/84
--- NOTE | 2019-05-03 14:40 | OR ---
DATE OF PROCEDURE: 05/03/2019 PREOPERATIVE DIAGNOSIS: Colon cancer screening. POSTOPERATIVE DIAGNOSIS: Poor colonoscopy prep, unremarkable colonoscopy. PROCEDURE PERFORMED: Colonoscopy to the cecum. SURGEON: Rahul Alvarez MD ANESTHESIA: IV anesthesia with monitored anesthesia care. INDICATION: This 53-year-old white female is referred for a colonoscopy for colon cancer screening. She has never had a colonoscopic exam. I counseled her for the procedure, including risks and alternatives, and she gave her informed consent to proceed. DESCRIPTION OF PROCEDURE: The patient was placed in the left lateral decubitus position. IV anesthesia was administered by Anesthesia Service. Time-out was held. A rectal exam was performed, which was unremarkable. The flexible video Olympus colonoscope was introduced through her anus, up her rectum, and out her colon all the way to the cecum. En route, we encountered a lot of fairly thick liquid stool, most of which we were able to aspirate free. Some larger solid pieces we could not aspirate. Once the cecum was reached, the scope was slowly withdrawn, examining the mucosa throughout. Of the visualized mucosa, no abnormalities were noted. The scope was retroflexed in the rectum, with the distal rectum appearing unremarkable. The scope was straightened and removed. She tolerated the procedure well. Rahul Alvarez MD /[id number] MTDD
== END 2019-05-03 11:50 | disposition home or self-care (01) ==
LOC: JP.SDS 07:53
PROVIDERS: ATTEND Surgery
DX: Z12.11 Encounter for screening for malignant neoplasm of colon (principal); F32.9 Major depressive disorder, single episode, unspecified; R73.03 Prediabetes; G47.33 Obstructive sleep apnea (adult) (pediatric); E66.9 Obesity, unspecified; Z68.41 Body mass index [BMI] 40.0-44.9, adult; Z99.89 Dependence on other enabling machines and devices; Z86.718 Personal history of other venous thrombosis and embolism; Z86.711 Personal history of pulmonary embolism
CPT/HCPCS: 45378; J2250; J2704; J3010; J7120

== ENCOUNTER 2019-07-13 17:53 | Emergency (ER) | payer MEDICAID ==
--- NOTE | 2019-07-13 18:37 | EDM.PDOC ---
ED HPI GENERAL MEDICAL PROBLEM - General Chief Complaint: ENT Problem Stated Complaint: TOOTH PAIN Time Seen by Provider: 07/13/19 18:41 Source of Information: Reports: Patient History Limitations: Reports: No Limitations - History of Present Illness INITIAL COMMENTS - FREE TEXT/NARRATIVE: pt had a tooth extracted on Wednesday and now she feels like something is in the socket. Onset: Gradual Duration: Hour(s):, Other ( She has gradually noted something in the socket. ) Location: Reports: Face Associated Symptoms: Reports: No Other Symptoms tooth Pain Score (Numeric/FACES): 9 - Related Data Allergies Allergy/AdvReac Type Severity Reaction Status Date / Time baclofen Allergy Itching Verified 07/13/19 18:11 Home Meds: Home Meds Gabapentin [Neurontin] 600 mg PO TID 05/01/18 [History] Cholecalciferol (Vitamin D3) [Vitamin D] 50,000 unit PO Q7D 01/30/19 [History] Furosemide 20 mg PO DAILY 01/30/19 [History] Albuterol Sulfate [Proair Hfa] 2 puff IH QID PRN 05/01/19 [History] Sertraline [Zoloft] 100 mg PO DAILY 07/13/19 [History] Past Medical History HEENT History: Reports: Impaired Vision Other HEENT History: wears glasses/contacts Cardiovascular History: Reports: Blood Clots/VTE/DVT, SOB on Exertion Respiratory History: Reports: PE Other Respiratory History: Non productive cough past 3 years-PE 07/2016 and 2016 Gastrointestinal History: Reports: None Genitourinary History: Reports: UTI, Recurrent 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, , Therapeutic Musculoskeletal History: Reports: Back Pain, Chronic, Other (See Below) Other Musculoskeletal History: s/p TLIF L4-5 06/09/17 Neurological History: Reports: None Psychiatric History: Reports: Depression Endocrine/Metabolic History: Reports: Obesity/BMI 30+, Other (See Below) Other Endocrine/Metabolic History: prediabetic - Infectious Disease History Infectious Disease History: Reports: Chicken Pox - Past Surgical History HEENT Surgical History: Reports: Tonsillectomy, Other (See Below) Other HEENT Surgeries/Procedures: "ear drums replaced" Cardiovascular Surgical History: Reports: None Respiratory Surgical History: Reports: None GI Surgical History: Reports: Hernia, Inguinal Female Surgical History: Reports: Section Endocrine Surgical History: Reports: None Neurological Surgical History: Reports: Lumbar Spine Other Neurological Surgeries/Procedures: Surgery May 2017 Musculoskeletal Surgical History: Reports: Carpal Tunnel Dermatological Surgical History: Reports: None Social & Family History - Family History Family Medical History: Noncontributory HEENT: Reports: Impaired Vision Cardiac: Reports: High Cholesterol, Hypertension Endocrine/Metabolic: Reports: Diabetes, type II Dermatologic: Reports: Other (See Below) Other Dermatologic Family History: mother skin cancer Oncologic: Reports: Other (See Below) Other Oncologic Family History: unknown to pt. - Tobacco Use Smoking Status *Q: Never Smoker Second Hand Smoke Exposure: Yes - Caffeine Use Caffeine Use: Reports: None - Recreational Drug Use Recreational Drug Use: No ED ROS ENT - Review of Systems Review Of Systems: See Below Constitutional: Reports: No Symptoms HEENT: Reports: Dental Pain Respiratory: Reports: No Symptoms Cardiovascular: Reports: No Symptoms Endocrine: Reports: No Symptoms GI/Abdominal: Reports: No Symptoms : Reports: No Symptoms ED EXAM, ENT - Physical Exam Exam: See Below Text/Narrative:: pt has something stuck in the socket. Exam Limited By: No Limitations General Appearance: Alert, Anxious, Mild Distress Ears: Normal TMs Nose: Normal Inspection Mouth/Throat: Other ( pt feels like something is in the socket. When this is palpated it definitely feels like it is bone. ) Head: Atraumatic Neck: Normal Inspection Respiratory/Chest: No Respiratory Distress Cardiovascular: Regular Rate, Rhythm Course - Vital Signs Last Recorded V/S: Last Vital Signs Temp 35.6 C 07/13/19 18:04 Pulse 85 07/13/19 18:04 Resp 22 H 07/13/19 18:04 BP 142/93 H 07/13/19 18:04 Pulse Ox 94 L 07/13/19 18:04 - Orders/Labs/Meds Meds: Medications Discontinued Medications Generic Name Dose Route Start Last Admin Trade Name Freq PRN Reason Stop Dose Admin Oxycodone/Acetaminophen 1 tab 07/13/19 18:43 Percocet 325-5 Mg PO 07/13/19 18:44 ONETIME ONE Departure - Departure Time of Disposition: 18:46 Disposition: Home, Self-Care 01 Condition: Fair Clinical Impression: History of tooth extraction - Discharge Information Referrals: Sravani Lozano MD [Primary Care Provider] - Forms: ED Department Discharge Care Plan Goals: irrigate the tooth socket, keep appt with dentist wednesday, amoxicillin 500mg tid , norco 5/325 q6h prn for pain#8, motrin 600mg tid.
[2019-07-13] MEDS ORDERED: Acetaminophen/oxyCODONE 325-5 MG Tab PO ONE (18:43)
[2019-07-13 18:56] VITALS: BP 133/83
== END 2019-07-13 19:02 | disposition home or self-care (01) ==
LOC: JP.ED 17:53
DX: K08.89 Other specified disorders of teeth and supporting structures (principal); F32.9 Major depressive disorder, single episode, unspecified; E66.9 Obesity, unspecified; Z98.818 Other dental procedure status; Z79.899 Other long term (current) drug therapy; Z88.8 Allergy status to other drugs, medicaments and biological substances; Z98.890 Other specified postprocedural states; Z77.22 Contact with and (suspected) exposure to environmental tobacco smoke (acute) (chronic)
CPT/HCPCS: 99282; A9270

== ENCOUNTER 2019-10-07 13:23 | Emergency (ER) | payer MEDICAID ==
[2019-10-07 14:23] VITALS: BP 117/84; PULSE 82
[2019-10-07] MEDS ORDERED: Ketorolac 60 MG/2 ML SDV IM ONE (14:30)
--- NOTE | 2019-10-07 14:36 | EDM.PDOC ---
ED HPI GENERAL MEDICAL PROBLEM - General Chief Complaint: Neck Problem Stated Complaint: L SIDE NECK PAIN Time Seen by Provider: 10/07/19 14:20 Source of Information: Reports: Patient, Old Records History Limitations: Reports: No Limitations - History of Present Illness INITIAL COMMENTS - FREE TEXT/NARRATIVE: 53 yo female here with L sided neck pain. This pain is not new, but is getting worse. She has been to the clinic and has been to PT once so far for it. She was given gabapentin that she is taking so far without relief. Has tried acetaminophen without relief. Has some tingling going down her L arm. Is on disability for an old back injury. Onset: Gradual Duration: Week(s):, Getting Worse Location: Reports: Neck Quality: Reports: Ache Severity: Moderate Improves with: Reports: Rest Worsens with: Reports: Movement Context: Reports: Other (progressive, chronic) Associated Symptoms: Reports: Other (some L arm numbness) Treatments BOX TOE BUFFER: Reports: Other (see below) (gabapentin) neck Pain Score (Numeric/FACES): 10 - Related Data Allergies Allergy/AdvReac Type Severity Reaction Status Date / Time acetaminophen Allergy Nausea Verified 10/07/19 14:20 [From Darvocet-N] baclofen Allergy Itching Verified 10/07/19 14:20 propoxyphene Allergy Nausea Verified 10/07/19 14:20 [From Darvocet-N] Home Meds: Home Meds Gabapentin [Neurontin] 600 mg PO TID 05/01/18 [History] Cholecalciferol (Vitamin D3) [Vitamin D] 50,000 unit PO Q7D 01/30/19 [History] Furosemide 20 mg PO DAILY 01/30/19 [History] Albuterol Sulfate [Proair Hfa] 2 puff IH QID PRN 05/01/19 [History] Citalopram [Citalopram HBr] 20 mg PO DAILY 10/07/19 [History] Past Medical History HEENT History: Reports: Impaired Vision Other HEENT History: wears glasses/contacts Cardiovascular History: Reports: Blood Clots/VTE/DVT, SOB on Exertion Respiratory History: Reports: PE Other Respiratory History: Non productive cough past 3 years-PE 07/2016 and 2016 Gastrointestinal History: Reports: None Genitourinary History: Reports: UTI, Recurrent 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: 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, , Therapeutic Musculoskeletal History: Reports: Back Pain, Chronic, Other (See Below) Other Musculoskeletal History: s/p TLIF L4-5 06/09/17 Neurological History: Reports: None Psychiatric History: Reports: Depression Endocrine/Metabolic History: Reports: Obesity/BMI 30+, Other (See Below) Other Endocrine/Metabolic History: prediabetic - Infectious Disease History Infectious Disease History: Reports: Chicken Pox - Past Surgical History HEENT Surgical History: Reports: Tonsillectomy, Other (See Below) Other HEENT Surgeries/Procedures: "ear drums replaced" Cardiovascular Surgical History: Reports: None Respiratory Surgical History: Reports: None GI Surgical History: Reports: Hernia, Inguinal Female Surgical History: Reports: Section Endocrine Surgical History: Reports: None Neurological Surgical History: Reports: Lumbar Spine Other Neurological Surgeries/Procedures: Surgery May 2017 Musculoskeletal Surgical History: Reports: Carpal Tunnel Dermatological Surgical History: Reports: None Social & Family History - Family History Family Medical History: Noncontributory HEENT: Reports: Impaired Vision Cardiac: Reports: High Cholesterol, Hypertension Endocrine/Metabolic: Reports: Diabetes, type II Dermatologic: Reports: Other (See Below) Other Dermatologic Family History: mother skin cancer Oncologic: Reports: Other (See Below) Other Oncologic Family History: unknown to pt. - Tobacco Use Smoking Status *Q: Current Every Day Smoker Years of Tobacco use: 30 Packs/Tins Daily: 0.5 - Caffeine Use Caffeine Use: Reports: None - Recreational Drug Use Recreational Drug Use: No ED ROS GENERAL - Review of Systems Review Of Systems: See Below Constitutional: Reports: No Symptoms HEENT: Reports: No Symptoms Respiratory: Reports: No Symptoms Cardiovascular: Reports: No Symptoms GI/Abdominal: Reports: No Symptoms Musculoskeletal: Reports: Neck Pain (L side) Skin: Reports: No Symptoms Neurological: Reports: Numbness (L arm tingling) ED EXAM, UPPER BACK/NECK PAIN - Physical Exam Exam: See Below Exam Limited By: No Limitations General Appearance: Alert, WD/WN, No Apparent Distress, Obese Eye Exam: Bilateral Eye: Normal Inspection Ears Exam: Normal External Exam, Normal Canal, Hearing Grossly Normal, Normal TMs Nose Exam: Normal Inspection, No Blood Throat/Mouth Exam: Normal Inspection, Normal Lips, Normal Oropharynx, Normal Voice, No Airway Compromise Head Exam: Atraumatic, Normocephalic Neck Exam: Limited Range of Motion, Painful Range of Motion, Stiff Neck, Tenderness (L post/lateral), Tender Lateral (left side). 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 Last Recorded V/S: Last Vital Signs Temp 37.0 C 10/07/19 14:22 Pulse 82 10/07/19 14:22 Resp 12 10/07/19 14:22 BP 117/84 10/07/19 14:22 Pulse Ox 96 10/07/19 14:22 - Orders/Labs/Meds Meds: Medications Discontinued Medications Generic Name Dose Route Start Last Admin Trade Name Humphreyq PRN Reason Stop Dose Admin Ketorolac Tromethamine 60 mg 10/07/19 14:30 10/07/19 14:48 Toradol IM 10/07/19 14:31 60 mg ONETIME ONE Administration Departure - Departure Time of Disposition: 15:25 Disposition: Home, Self-Care 01 Condition: Fair Clinical Impression: Neck pain - Discharge Information *PRESCRIPTION DRUG MONITORING PROGRAM REVIEWED*: No *COPY OF PRESCRIPTION DRUG MONITORING REPORT IN PATIENT CONNIE: No Referrals: Sravani Lozano MD [Primary Care Provider] - Forms: ED Department Discharge Additional Instructions: Add Naproxen sodium 550 mg every 12 hrs with food to your current medications, next dose after 8:30pm today. F/U with your provider dwight.
== END 2019-10-07 15:47 | disposition home or self-care (01) ==
LOC: JP.ED 13:23
DX: M54.2 Cervicalgia (principal); E66.9 Obesity, unspecified; F32.9 Major depressive disorder, single episode, unspecified; F17.210 Nicotine dependence, cigarettes, uncomplicated; Z88.6 Allergy status to analgesic agent; Z88.8 Allergy status to other drugs, medicaments and biological substances; Z79.899 Other long term (current) drug therapy; Z68.39 Body mass index [BMI] 39.0-39.9, adult
CPT/HCPCS: 96372; 99283; J1885

== ENCOUNTER 2019-12-25 19:11 | Emergency (ER) | payer MEDICARE, MEDICAID ==
--- NOTE | 2019-12-25 21:14 | EDM.PDOC ---
ED HPI GENERAL MEDICAL PROBLEM - General Chief Complaint: Skin Complaint Stated Complaint: RASH ON RIGHT ARM Time Seen by Provider: 12/25/19 21:00 Source of Information: Reports: Patient, Old Records, RN History Limitations: Reports: No Limitations - History of Present Illness INITIAL COMMENTS - FREE TEXT/NARRATIVE: 54 yo female is here with dry, reddened skin on the lateral aspects of both arms and a facial pressure KING for a couple days. No fever. No itching. No trouble breathing or swallowing. Onset: Gradual Onset Date: 12/23/19 Duration: Day(s):, Getting Worse Location: Reports: Face, Upper Extremity, Left, Upper Extremity, Right Quality: Reports: Pressure Severity: Mild Improves with: Reports: None Worsens with: Reports: Other (uncertain) Context: Reports: Other (see HPI) Associated Symptoms: Reports: Cough, Headaches (pressure in both cheeks), Rash ( arms). Denies: Fever/Chills, Nausea/Vomiting, Shortness of Breath Treatments MANAGER STRATEGIC ALLIANCES: Reports: Other (see below) (OTC analgesia for KING) bilateral upper arms Pain Score (Numeric/FACES): 8 - Related Data Allergies Allergy/AdvReac Type Severity Reaction Status Date / Time acetaminophen Allergy Nausea Verified 12/25/19 20:27 [From Darvocet-N] baclofen Allergy Itching Verified 12/25/19 20:27 propoxyphene Allergy Nausea Verified 12/25/19 20:27 [From Darvocet-N] Home Meds: Home Meds Gabapentin [Neurontin] 600 mg PO TID 05/01/18 [History] Furosemide 20 mg PO DAILY 01/30/19 [History] Albuterol Sulfate [Proair Hfa] 2 puff IH QID PRN 05/01/19 [History] Citalopram [Citalopram HBr] 20 mg PO DAILY 10/07/19 [History] Naproxen Sodium [Anaprox DS] 550 mg PO BID PRN #15 tab 10/07/19 [Rx] Past Medical History HEENT History: Reports: Impaired Vision Other HEENT History: wears glasses/contacts Cardiovascular History: Reports: Blood Clots/VTE/DVT, SOB on Exertion Respiratory History: Reports: PE Other Respiratory History: Non productive cough past 3 years-PE 07/2016 and 2016 Gastrointestinal History: Reports: None Genitourinary History: Reports: UTI, 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: 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, , Therapeutic Musculoskeletal History: Reports: Back Pain, Chronic, Other (See Below) Other Musculoskeletal History: s/p TLIF L4-5 06/09/17 Neurological History: Reports: None Psychiatric History: Reports: Depression Endocrine/Metabolic History: Reports: Obesity/BMI 30+, Other (See Below) Other Endocrine/Metabolic History: prediabetic - Infectious Disease History Infectious Disease History: Reports: Chicken Pox - Past Surgical History HEENT Surgical History: Reports: Tonsillectomy, Other (See Below) Other HEENT Surgeries/Procedures: "ear drums replaced" Cardiovascular Surgical History: Reports: None Respiratory Surgical History: Reports: None GI Surgical History: Reports: Hernia, Inguinal Female Surgical History: Reports: Section Endocrine Surgical History: Reports: None Neurological Surgical History: Reports: Lumbar Spine Other Neurological Surgeries/Procedures: Surgery May 2017 Musculoskeletal Surgical History: Reports: Carpal Tunnel Dermatological Surgical History: Reports: None Social & Family History - Family History Family Medical History: Noncontributory HEENT: Reports: Impaired Vision Cardiac: Reports: High Cholesterol, Hypertension Endocrine/Metabolic: Reports: Diabetes, type II Dermatologic: Reports: Other (See Below) Other Dermatologic Family History: mother skin cancer Oncologic: Reports: Other (See Below) Other Oncologic Family History: unknown to pt. - Tobacco Use Smoking Status *Q: Current Every Day Smoker Years of Tobacco use: 40 Packs/Tins Daily: 0.2 - Caffeine Use Caffeine Use: Reports: None - Recreational Drug Use Recreational Drug Use: No ED ROS GENERAL - Review of Systems Review Of Systems: See Below Constitutional: Reports: No Symptoms HEENT: Reports: Rhinitis (congestion). Denies: Ear Pain, Eye Discharge, Nose Pain, Throat Pain Respiratory: Reports: Cough. Denies: Shortness of Breath, Wheezing, Sputum, Hemoptysis Cardiovascular: Reports: No Symptoms GI/Abdominal: Reports: No Symptoms Skin: Reports: Dryness (both arms), Rash (lateral arms bilat.), Erythema. Denies: Pruritis Neurological: Reports: No Symptoms, Confusion, Dizziness, Headache, Pre- Existing Deficit ED EXAM, SKIN/RASH Exam: See Below Exam Limited By: No Limitations General Appearance: Alert, WD/WN, No Apparent Distress Eye Exam: Bilateral Eye: Normal Inspection Ears: Normal External Exam, Normal Canal, Hearing Grossly Normal, Normal TMs Nose: Normal Inspection, No Blood, Clear Rhinorrhea, Other (bilat nasal congestion) Throat/Mouth: Normal Inspection, Normal Lips, Normal Oropharynx, Normal Voice, No Airway Compromise Head: Atraumatic, Normocephalic Neck: Normal Inspection Respiratory/Chest: No Respiratory Distress, Lungs Clear, Normal Breath Sounds, No Accessory Muscle Use Cardiovascular: Regular Rate, Rhythm, No Edema Back Exam: Normal Inspection Extremities: Normal Inspection Neurological: Alert, Oriented, CN II-XII Intact, Normal Cognition, No Motor/ Sensory Deficits Psychiatric: Normal Affect, Normal Mood Skin: Warm, Dry, Intact, Erythema (lateral arms bilat associated with dry skin) . No: Normal Color, Diaphoretic, Ecchymosis, Increased Warmth, Lymphangitis, Rash Location, Skin: Upper Extremity, Right, Upper Extremity, Left Characteristics: Confluent, Erythematous Associated features: No: Warmth, Tenderness, Induration, Scaling, Lymphangitis Course - Vital Signs Last Recorded V/S: Last Vital Signs Temp 36.8 C 12/25/19 20:24 Pulse 90 12/25/19 20:24 Resp 16 12/25/19 20:24 BP 134/76 12/25/19 20:24 Pulse Ox 96 12/25/19 20:24 Departure - Departure Time of Disposition: 21:20 Disposition: Home, Self-Care 01 Condition: Good Clinical Impression: Dry skin, Sinus pressure, Dry nares - Discharge Information *PRESCRIPTION DRUG MONITORING PROGRAM REVIEWED*: No *COPY OF PRESCRIPTION DRUG MONITORING REPORT IN PATIENT CONNIE: No Referrals: Sravani Lozano MD [Primary Care Provider] - Additional Instructions: For your intermittent nose bleeds: apply Vaseline to each nostril twice daily during winter months. For your sinus headache: Use Afrin per package instructions for up to 3 days. You may also continue acetaminophen up to 1000 mg every 6 hrs as needed. For your arm rash: Avoid hot showers, warm is better. Use instead of spring(less drying). Apply Cetaphil cream to your skin immediately after you have finished drying off after a shower. Consider skipping showers on days when you are sticking around the house to avoid further over drying your skin. Recheck in the clinic as needed. Sepsis Event Note - Evaluation Sepsis Screening Result: No Definite Risk - Focused Exam Vital Signs: Vital Signs Temp Pulse Resp BP Pulse Ox 12/25/19 20:24 36.8 C 90 16 134/76 96 Date Exam was Performed: 12/25/19 Time Exam was Performed: 21:09
== END 2019-12-25 21:35 | disposition home or self-care (01) ==
LOC: JP.ED 19:11
CPT/HCPCS: 99282; 99283

== ENCOUNTER 2019-12-29 12:18 | Emergency (ER) | payer MEDICAID ==
[2019-12-29] MEDS ORDERED: Amoxicillin/Clavulanate K 875-125 MG Tab PO ONE (12:54)
--- NOTE | 2019-12-29 13:02 | EDM.PDOC ---
ED HPI GENERAL MEDICAL PROBLEM - General Chief Complaint: Bite:Animal, Insect Stated Complaint: CAT ATTACK, LEGS,ARMS Time Seen by Provider: 12/29/19 12:56 Source of Information: Reports: Patient, Old Records History Limitations: Reports: No Limitations - History of Present Illness INITIAL COMMENTS - FREE TEXT/NARRATIVE: 54 yo cat scratched her on both legs and R arm. There is one set of bite wounds also on the L leg. The cat was agitated by a dog. She is UTD on her tetanus. No tx prior to arrival. Cat is not vaccinated for rabies. Onset: Today Onset Date: 12/29/19 Onset Time: 12:00 Duration: Hour(s): (1), Constant Location: Reports: Upper Extremity, Right, Lower Extremity, Left, Lower Extremity, Right Quality: Reports: Burning Severity: Mild Improves with: Reports: None Worsens with: Reports: None Context: Reports: Trauma Associated Symptoms: Reports: No Other Symptoms Treatments CARDIOLOGY NURSE PRACTITIONER: Reports: Other (see below) (none) - Related Data Allergies Allergy/AdvReac Type Severity Reaction Status Date / Time acetaminophen Allergy Nausea Verified 12/25/19 20:27 [From Darvocet-N] baclofen Allergy Itching Verified 12/25/19 20:27 propoxyphene Allergy Nausea Verified 12/25/19 20:27 [From Darvocet-N] Home Meds: Home Meds Gabapentin [Neurontin] 600 mg PO TID 05/01/18 [History] Furosemide 20 mg PO DAILY 01/30/19 [History] Albuterol Sulfate [Proair Hfa] 2 puff IH QID PRN 05/01/19 [History] Citalopram [Citalopram HBr] 20 mg PO DAILY 10/07/19 [History] Naproxen Sodium [Anaprox DS] 550 mg PO BID PRN #15 tab 10/07/19 [Rx] Amoxicillin/Clavulanate K [Augmentin 875-125 MG] 1 tab PO BID #5 tablet [Rx] Past Medical History HEENT History: Reports: Impaired Vision Other HEENT History: wears glasses/contacts Cardiovascular History: Reports: Blood Clots/VTE/DVT, SOB on Exertion Respiratory History: Reports: PE Other Respiratory History: Non productive cough past 3 years-PE 07/2016 and 2016 Gastrointestinal History: Reports: None Genitourinary History: Reports: UTI, 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: 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, , Therapeutic Musculoskeletal History: Reports: Back Pain, Chronic, Other (See Below) Other Musculoskeletal History: s/p TLIF L4-5 06/09/17 Neurological History: Reports: None Psychiatric History: Reports: Depression Endocrine/Metabolic History: Reports: Obesity/BMI 30+, Other (See Below) Other Endocrine/Metabolic History: prediabetic - Infectious Disease History Infectious Disease History: Reports: Chicken Pox - Past Surgical History HEENT Surgical History: Reports: Tonsillectomy, Other (See Below) Other HEENT Surgeries/Procedures: "ear drums replaced" Cardiovascular Surgical History: Reports: None Respiratory Surgical History: Reports: None GI Surgical History: Reports: Hernia, Inguinal Female Surgical History: Reports: Section Endocrine Surgical History: Reports: None Neurological Surgical History: Reports: Lumbar Spine Other Neurological Surgeries/Procedures: Surgery May 2017 Musculoskeletal Surgical History: Reports: Carpal Tunnel Dermatological Surgical History: Reports: None Social & Family History - Family History Family Medical History: Noncontributory HEENT: Reports: Impaired Vision Cardiac: Reports: High Cholesterol, Hypertension Endocrine/Metabolic: Reports: Diabetes, type II Dermatologic: Reports: Other (See Below) Other Dermatologic Family History: mother skin cancer Oncologic: Reports: Other (See Below) Other Oncologic Family History: unknown to pt. - Caffeine Use Caffeine Use: Reports: None ED ROS GENERAL - Review of Systems Review Of Systems: See Below Constitutional: Reports: No Symptoms Skin: Reports: Wound (cat scratches both legs and R forearm. No active bleeding. Bite wound L leg. ) Neurological: Reports: No Symptoms ED EXAM, ANIMAL BITE - Physical Exam Exam: See Below Exam Limited By: No Limitations General Appearance: Alert, WD/WN, No Apparent Distress Psychiatric: Anxious Skin Exam: Normal Color, Other (cat scratches both legs, R forearm, and bite wound L leg. ) Course - Vital Signs Text/Narrative:: Wounds cleaned. Augmentin given orally. Last Recorded V/S: Last Vital Signs Temp 34.9 C L 12/29/19 12:52 Pulse 73 12/29/19 13:41 Resp 14 12/29/19 13:41 BP 127/75 12/29/19 13:41 Pulse Ox 93 L 12/29/19 12:52 - Orders/Labs/Meds Meds: Medications Discontinued Medications Generic Name Dose Route Start Last Admin Trade Name Tj PRN Reason Stop Dose Admin Amoxicillin/Clavulanate Potassium 1 tab 12/29/19 12:54 12/29/19 13:12 Augmentin 875 Mg/125 Mg PO 12/29/19 12:55 1 tab ONETIME ONE Administration Departure - Departure Time of Disposition: 13:42 Disposition: Home, Self-Care 01 Condition: Good Clinical Impression: Cat scratch Cat bite Qualifiers: Encounter type: initial encounter Qualified Code(s): W55.01XA - Bitten by cat, initial encounter Clinical Impression: (Ruled Out): Cat scratch of left lower leg - Discharge Information *PRESCRIPTION DRUG MONITORING PROGRAM REVIEWED*: No *COPY OF PRESCRIPTION DRUG MONITORING REPORT IN PATIENT CONNIE: No Prescriptions: Amoxicillin/Clavulanate K [Augmentin 875-125 MG] 1 tab PO BID #5 tablet Instructions: Animal Bite, Adult, [id number] Referrals: Sravani Lozano MD [Primary Care Provider] - Forms: ED Department Discharge Additional Instructions: Clean wounds 3 times/day for the next 3 days with soap and water. Take Augmentin as directed until gone. Recheck for signs of infection. Acetaminophen for pain relief. Keep cat in a garage or home so that it can't run away, if it acts sick it needs to go to the [facility] to be tested for rabies. If the cat runs away or it tests positive for rabies then you will need the rabies series of shots. Sepsis Event Note - Focused Exam Vital Signs: Vital Signs Temp Pulse Resp BP Pulse Ox 12/29/19 13:41 73 14 127/75 12/29/19 12:52 34.9 C L 87 20 132/94 H 93 L Date Exam was Performed: 12/29/19 Time Exam was Performed: 13:42
[2019-12-29 13:42] VITALS: BP 127/75; PULSE 73
== END 2019-12-29 13:43 | disposition home or self-care (01) ==
LOC: JP.ED 12:18
DX: S81.852A Open bite, left lower leg, initial encounter (principal); S80.811A Abrasion, right lower leg, initial encounter; S50.811A Abrasion of right forearm, initial encounter; F32.9 Major depressive disorder, single episode, unspecified; Z88.6 Allergy status to analgesic agent; Z88.8 Allergy status to other drugs, medicaments and biological substances; E66.9 Obesity, unspecified; Z68.39 Body mass index [BMI] 39.0-39.9, adult; W55.01XA Bitten by cat, initial encounter; Z79.899 Other long term (current) drug therapy
CPT/HCPCS: 99283; A9270

== ENCOUNTER 2020-04-03 14:07 | Emergency (ER) | payer MEDICAID ==
--- NOTE | 2020-04-03 14:59 | EDM.PDOC ---
ED HPI GENERAL MEDICAL PROBLEM - General Chief Complaint: Respiratory Problem Stated Complaint: SHORTNESS OF BREATH AND LEG PAIN Time Seen by Provider: 04/03/20 14:45 Source of Information: Reports: Patient, Provider History Limitations: Reports: No Limitations - History of Present Illness INITIAL COMMENTS - FREE TEXT/NARRATIVE: 54-year-old female who was on a teleconference visit with her primary provider this morning to talk about neck discomfort when she mention she has been short of breath and having some leg pain. Her provider was concerned she may have a repeat of her history of DVTs so sent her into the emergency room for evaluation. Her provider sent her in 4 hours ago, she finally showed up just now. Her vitals are completely stable, O2 sats are normal, respiratory rate and pulse are normal. No fevers or chills, her main concern seems to be this persistent pain in her left posterior neck which has been bothering her all week since [facility]. Onset: Unknown/Unsure Duration: Week(s): (Symptoms of neck pain for 1 week, shortness of breath and leg pain for at least a week) Associated Symptoms: Reports: Cough (Occasional, off and on), Shortness of Breath, Other. Denies: Chest Pain, Diaphoresis, Fever/Chills, Malaise, Nausea/ Vomiting, Weakness Left Leg Pain Score (Numeric/FACES): 9 - Related Data Allergies Allergy/AdvReac Type Severity Reaction Status Date / Time acetaminophen Allergy Nausea Verified 04/03/20 14:35 [From Darvocet-N] baclofen Allergy Itching Verified 04/03/20 14:35 propoxyphene Allergy Nausea Verified 04/03/20 14:35 [From Darvocet-N] Home Meds: Home Meds Gabapentin [Neurontin] 600 mg PO TID 05/01/18 [History] Furosemide 20 mg PO DAILY 01/30/19 [History] Albuterol Sulfate [Proair Hfa] 2 puff IH QID PRN 05/01/19 [History] Naproxen Sodium [Anaprox DS] 550 mg PO BID PRN #15 tab 10/07/19 [Rx] ARIPiprazole [Abilify] 5 mg PO DAILY 04/03/20 [History] DULoxetine [Cymbalta] 2 tab PO DAILY 04/03/20 [History] Meloxicam 15 mg PO DAILY 04/03/20 [History] metFORMIN [Glucophage] 500 mg PO BIDMEALS 04/03/20 [History] tiZANidine [Zanaflex] 4 mg PO Q8H PRN 04/03/20 [History] Past Medical History HEENT History: Reports: Impaired Vision Other HEENT History: wears glasses/contacts Cardiovascular History: Reports: Blood Clots/VTE/DVT, SOB on Exertion Respiratory History: Reports: PE Other Respiratory History: Non productive cough past 3 years-PE 07/2016 and 2016 Gastrointestinal History: Reports: None Genitourinary History: Reports: UTI, Recurrent 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: 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, , Therapeutic Musculoskeletal History: Reports: Back Pain, Chronic, Other (See Below) Other Musculoskeletal History: s/p TLIF L4-5 06/09/17 Neurological History: Reports: None Psychiatric History: Reports: Depression Endocrine/Metabolic History: Reports: Obesity/BMI 30+, Other (See Below) Other Endocrine/Metabolic History: prediabetic - Infectious Disease History Infectious Disease History: Reports: Chicken Pox - Past Surgical History HEENT Surgical History: Reports: Tonsillectomy, Other (See Below) Other HEENT Surgeries/Procedures: "ear drums replaced" GI Surgical History: Reports: Hernia, Inguinal Female Surgical History: Reports: Section Neurological Surgical History: Reports: Lumbar Spine Other Neurological Surgeries/Procedures: Surgery May 2017 Musculoskeletal Surgical History: Reports: Carpal Tunnel Social & Family History - Family History Family Medical History: Noncontributory HEENT: Reports: Impaired Vision Cardiac: Reports: High Cholesterol, Hypertension Endocrine/Metabolic: Reports: Diabetes, type II Dermatologic: Reports: Other (See Below) Other Dermatologic Family History: mother skin cancer Oncologic: Reports: Other (See Below) Other Oncologic Family History: unknown to pt. - Tobacco Use Smoking Status *Q: Light Tobacco Smoker Years of Tobacco use: 49 Packs/Tins Daily: 0 - Caffeine Use Caffeine Use: Reports: None - Recreational Drug Use Recreational Drug Use: No ED ROS GENERAL - Review of Systems Review Of Systems: See Below Constitutional: Denies: Fever, Chills HEENT: Denies: Rhinitis, Throat Pain Respiratory: Reports: Shortness of Breath, Cough (Nonproductive) Cardiovascular: Denies: Chest Pain, Palpitations GI/Abdominal: Reports: No Symptoms : Reports: No Symptoms Musculoskeletal: Reports: Neck Pain, Leg Pain (Left side) Skin: Reports: No Symptoms Neurological: Denies: Headache ED EXAM, GENERAL - Physical Exam Exam: See Below Exam Limited By: No Limitations General Appearance: Alert, No Apparent Distress Eye Exam: Bilateral Eye: Normal Inspection Head: Atraumatic Neck: Other (She does have palpation tenderness along the paracervical muscles on the left side) Respiratory/Chest: No Respiratory Distress, Lungs Clear Cardiovascular: Regular Rate, Rhythm GI/Abdominal: Soft, Non-Tender Extremities: Other (Vague tenderness to palpation through the thigh popliteal area and calf on the left leg but no edema, swelling or bruising) Course - Vital Signs Last Recorded V/S: Last Vital Signs Temp 96.6 F L 04/03/20 14:34 Pulse 92 04/03/20 15:06 Resp 16 04/03/20 14:34 BP 115/79 04/03/20 15:06 Pulse Ox 96 04/03/20 15:06 - Orders/Labs/Meds Labs: Laboratory Tests 04/03/20 04/03/20 Range/Units 14:53 14:53 WBC 8.6 (4.5-11.0) K/uL RBC 5.09 (3.30-5.50) M/uL Hgb 15.0 (12.0-15.0) g/dL Hct 46.6 (36.0-48.0) % MCV 92 (80-98) fL MCH 30 (27-31) pg MCHC 32 (32-36) % Plt Count 212 (150-400) K/uL Neut % (Auto) 46 (36-66) % Lymph % (Auto) 39 (24-44) % [place] % (Auto) 13 H (2-6) % Eos % (Auto) 2 (2-4) % Baso % (Auto) 1 (0-1) % D-Dimer, Quantitative < 100 (0.0-400.0) ng/mL - Re-Assessments/Exams Free Text/Narrative Re-Assessment/Exam: 04/03/20 15:37 D-dimer and left leg ultrasound were obtained and both were negative. Patient was reassured regarding DVT and PE, was given 15 Flexeril to take at bedtime for her neck strain. Recheck next week if not improving satisfactorily. Departure - Departure Time of Disposition: 16:28 Disposition: Home, Self-Care 01 Clinical Impression: Neck pain Dyspnea Qualifiers: Dyspnea type: unspecified Qualified Code(s): R06.00 - Dyspnea, unspecified - Discharge Information Instructions: Shortness of Breath, Adult Referrals: Yissel Rios MD [Primary Care Provider] - Forms: ED Department Discharge Care Plan Goals: Avoid smoking, increase activity as tolerated and take muscle relaxers up to 3 times daily for your neck discomfort. Recheck next week if not improving satisfactorily, return sooner if worsening such as fever or increased shortness of breath. Sepsis Event Note - Evaluation Sepsis Screening Result: No Definite Risk - Focused Exam Vital Signs: Vital Signs Temp Pulse Resp BP Pulse Ox 04/03/20 15:06 92 115/79 96 04/03/20 14:34 96.6 F L 84 16 142/86 H 95 04/03/20 14:21 96.6 F L 84 16 142/86 H 95 Date Exam was Performed: 04/03/20 Time Exam was Performed: 16:48
[2020-04-03 15:06] VITALS: BP 115/79; PULSE 92
--- NOTE | 2020-04-03 15:41 | CRLUS ---
INDICATION: Left leg pain. History of DVT. TECHNIQUE: Ultrasound venous duplex lower left extremity. Compression venous exam was performed using clement-scale, color Doppler, and spectral Doppler analysis. COMPARISON: May 01, 2018. FINDINGS: Sonographic imaging demonstrates the left common femoral, deep femoral, superficial femoral, popliteal, posterior tibial and greater saphenous and the contralateral right common femoral veins to be fully compressible with normal color Doppler blood flow. IMPRESSION: Normal left lower extremity venous ultrasound, no sign of deep venous thrombosis. Dictated by Allan Miller MD @ Apr 03 2020 3:39PM Signed by Dr. Allan Miller @ Apr 03 2020 3:40PM
== END 2020-04-03 16:28 | disposition home or self-care (01) ==
LOC: JP.ED 14:07
DX: M54.2 Cervicalgia (principal); R06.02 Shortness of breath; F32.9 Major depressive disorder, single episode, unspecified; E66.9 Obesity, unspecified; Z68.39 Body mass index [BMI] 39.0-39.9, adult; Z88.6 Allergy status to analgesic agent; Z88.1 Allergy status to other antibiotic agents; Z86.711 Personal history of pulmonary embolism
CPT/HCPCS: 36415; 85025; 85379; 93971-LT; 99285-25

== ENCOUNTER 2020-05-12 19:32 | Emergency (ER) | payer MEDICAID ==
[2020-05-12 19:55] VITALS: BP 142/92; PULSE 100
[2020-05-12] MEDS ORDERED: EPINEPHrine 1 MG/ML SDV IM ONE (20:04)
--- NOTE | 2020-05-12 20:46 | EDM.PDOC ---
ED HPI GENERAL MEDICAL PROBLEM - General Chief Complaint: Wound Recheck Stated Complaint: OLD ABD INCISON AREA REDNESS,ITCHING Time Seen by Provider: 05/12/20 20:30 Source of Information: Reports: Patient History Limitations: Reports: No Limitations - History of Present Illness INITIAL COMMENTS - FREE TEXT/NARRATIVE: 56-year-old female with an irritating itchy redness under the past along the incision of an old . Today she noticed some purulent drainage and possibly bleeding from the area so she came in to have it checked. Onset: Unknown/Unsure Associated Symptoms: Reports: No Other Symptoms Abdomen Pain Score (Numeric/FACES): 9 - Related Data Allergies Allergy/AdvReac Type Severity Reaction Status Date / Time acetaminophen Allergy Nausea Verified 05/12/20 20:41 [From Darvocet-N] baclofen Allergy Itching Verified 05/12/20 20:41 propoxyphene Allergy Nausea Verified 05/12/20 20:41 [From Darvocet-N] Home Meds: Home Meds Gabapentin [Neurontin] 600 mg PO TID 05/01/18 [History] Furosemide 20 mg PO DAILY 01/30/19 [History] Albuterol Sulfate [Proair Hfa] 2 puff IH QID PRN 05/01/19 [History] Naproxen Sodium [Anaprox DS] 550 mg PO BID PRN #15 tab 10/07/19 [Rx] ARIPiprazole [Abilify] 5 mg PO DAILY 04/03/20 [History] DULoxetine [Cymbalta] 1 tab PO BID 04/03/20 [History] Meloxicam 15 mg PO DAILY 04/03/20 [History] metFORMIN [Glucophage] 500 mg PO BIDMEALS 04/03/20 [History] tiZANidine [Zanaflex] 4 mg PO Q8H PRN 04/03/20 [History] Past Medical History HEENT History: Reports: Impaired Vision Other HEENT History: wears glasses/contacts Cardiovascular History: Reports: Blood Clots/VTE/DVT, SOB on Exertion Respiratory History: Reports: PE Other Respiratory History: Non productive cough past 3 years-PE 07/2016 and 02/2017 Gastrointestinal History: Reports: None Genitourinary History: Reports: UTI, Recurrent 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, , Therapeutic Musculoskeletal History: Reports: Back Pain, Chronic, Other (See Below) Other Musculoskeletal History: s/p TLIF L4-5 06/09/17 Neurological History: Reports: None Psychiatric History: Reports: Depression Endocrine/Metabolic History: Reports: Obesity/BMI 30+, Other (See Below) Other Endocrine/Metabolic History: prediabetic - Infectious Disease History Infectious Disease History: Reports: Chicken Pox - Past Surgical History HEENT Surgical History: Reports: Tonsillectomy, Other (See Below) Other HEENT Surgeries/Procedures: "ear drums replaced" GI Surgical History: Reports: Hernia, Inguinal Female Surgical History: Reports: Section Neurological Surgical History: Reports: Lumbar Spine Other Neurological Surgeries/Procedures: Surgery May 2017 Musculoskeletal Surgical History: Reports: Carpal Tunnel Social & Family History - Family History Family Medical History: Noncontributory HEENT: Reports: Impaired Vision Cardiac: Reports: High Cholesterol, Hypertension Endocrine/Metabolic: Reports: Diabetes, type II Dermatologic: Reports: Other (See Below) Other Dermatologic Family History: mother skin cancer Oncologic: Reports: Other (See Below) Other Oncologic Family History: unknown to pt. - Caffeine Use Caffeine Use: Reports: None ED ROS GENERAL - Review of Systems Review Of Systems: See Below Constitutional: Denies: Fever, Chills HEENT: Reports: No Symptoms Respiratory: Denies: Shortness of Breath Cardiovascular: Denies: Chest Pain GI/Abdominal: Denies: Abdominal Pain Skin: Reports: Rash (Redness and rash in the pannus crease along the scar) Neurological: Reports: No Symptoms ED EXAM, SKIN/RASH Exam: See Below Exam Limited By: No Limitations General Appearance: Alert, No Apparent Distress Respiratory/Chest: No Respiratory Distress GI/Abdominal: Normal Bowel Sounds, Soft, Non-Tender Neurological: Alert, Oriented Skin: Warm, Dry, Other (In the crease of the pannus there is deep red nonblanching macular rash areas that appear to be a yeast type infection. There is no penetration or breakage of the skin with her could have been drainage. It is all superficial.) Course - Vital Signs Last Recorded V/S: Last Vital Signs Temp 96.3 F L 05/12/20 20:40 Pulse 100 05/12/20 20:40 Resp 16 05/12/20 20:40 BP 142/92 H 05/12/20 20:40 Pulse Ox 95 05/12/20 20:40 - Orders/Labs/Meds Meds: Medications Discontinued Medications Generic Name Dose Route Start Last Admin Trade Name Tj PRN Reason Stop Dose Admin Epinephrine HCl 0.3 mg 05/12/20 20:04 Adrenalin IM 05/12/20 20:05 ONETIME ONE - Re-Assessments/Exams Free Text/Narrative Re-Assessment/Exam: 05/12/20 20:44 Patient was given nystatin topical to use 4 times a day in the crease areas and can recheck later this week if not improving satisfactorily. Departure - Departure Time of Disposition: 21:02 Disposition: Home, Self-Care 01 Clinical Impression: Elissa-induced panniculitis - Discharge Information Instructions: Skin Yeast Infection Referrals: Yissel Rios MD [Primary Care Provider] - Forms: ED Department Discharge Care Plan Goals: Put topical medicine on the rash area 3-4 times daily for the next 7 to 10 days, and try to keep the area clean and dry. Recheck in 5 to 10 days if not improving satisfactorily. Sepsis Event Note (ED) - Focused Exam Vital Signs: Vital Signs Temp Pulse Resp BP Pulse Ox 05/12/20 20:40 96.3 F L 100 16 142/92 H 95 05/12/20 19:54 96.3 F L 100 16 142/92 H 95
== END 2020-05-12 21:02 | disposition home or self-care (01) ==
LOC: JP.ED 19:32
DX: M79.3 Panniculitis, unspecified (principal); F32.9 Major depressive disorder, single episode, unspecified; E66.9 Obesity, unspecified; Z68.41 Body mass index [BMI] 40.0-44.9, adult; Z88.6 Allergy status to analgesic agent; Z88.8 Allergy status to other drugs, medicaments and biological substances; Z79.899 Other long term (current) drug therapy; Z79.84 Long term (current) use of oral hypoglycemic drugs; Z86.718 Personal history of other venous thrombosis and embolism; Z86.711 Personal history of pulmonary embolism
CPT/HCPCS: 99282

== ENCOUNTER 2020-07-27 13:14 | Emergency (ER) | payer MEDICARE, MEDICAID ==
[2020-07-27 14:15] VITALS: BP 114/62; PULSE 88
--- NOTE | 2020-07-27 14:47 | EDM.PDOC ---
ED HPI GENERAL MEDICAL PROBLEM - General Chief Complaint: Lower Extremity Injury/Pain Stated Complaint: RT LEG PAIN/SURGERY YESTERDAY Time Seen by Provider: 07/27/20 14:47 Source of Information: Reports: Patient, RN Notes Reviewed - History of Present Illness INITIAL COMMENTS - FREE TEXT/NARRATIVE: Patti presents today with complaints of hearing a "pop" when she was getting into bed. Recent right lower extremity surgery per Dr. Bond. She states he took some bone and moved it to another place. No records available. Current use of vicodin for pain. Patient reports her pain is controlled. She denies any injury, trauma, fever, chills, nausea, vomiting or other concerns. Right Foot Pain Score (Numeric/FACES): 10 - Related Data Allergies Allergy/AdvReac Type Severity Reaction Status Date / Time baclofen Allergy Itching Verified 07/27/20 14:19 acetaminophen AdvReac Nausea Verified 07/27/20 14:19 [From Darvocet-N] propoxyphene AdvReac Nausea Verified 07/27/20 14:19 [From Darvocet-N] Home Meds: Home Meds Gabapentin [Neurontin] 600 mg PO TID 05/01/18 [History] Furosemide 20 mg PO DAILY 01/30/19 [History] Albuterol Sulfate [Proair Hfa] 2 puff IH QID PRN 05/01/19 [History] Naproxen Sodium [Anaprox DS] 550 mg PO BID PRN #15 tab 10/07/19 [Rx] ARIPiprazole [Abilify] 5 mg PO DAILY 04/03/20 [History] DULoxetine [Cymbalta] 1 tab PO BID 04/03/20 [History] Meloxicam 15 mg PO DAILY 04/03/20 [History] metFORMIN [Glucophage] 500 mg PO BIDMEALS 04/03/20 [History] tiZANidine [Zanaflex] 4 mg PO Q8H PRN 04/03/20 [History] Acetaminophen/HYDROcodone [[place] 325-5 MG] 1 tab PO Q4H PRN 07/27/20 [History] Nicotine [Nicotine Patch] 7 mg TD DAILY 07/27/20 [History] Past Medical History HEENT History: Reports: Impaired Vision Other HEENT History: wears glasses/contacts Cardiovascular History: Reports: Blood Clots/VTE/DVT, SOB on Exertion Respiratory History: Reports: PE Other Respiratory History: Non productive cough past 3 years-PE 07/2016 and 02/2017 Gastrointestinal History: Reports: None Genitourinary History: Reports: UTI, Recurrent 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, , Therapeutic Musculoskeletal History: Reports: Back Pain, Chronic, Other (See Below) Other Musculoskeletal History: s/p TLIF L4-5 06/09/17 Neurological History: Reports: None, Neuropathy, Diabetic Psychiatric History: Reports: Depression Endocrine/Metabolic History: Reports: Diabetes, Type II, Obesity/BMI 30+, Other (See Below) Other Endocrine/Metabolic History: prediabetic - Infectious Disease History Infectious Disease History: Reports: Chicken Pox - Past Surgical History HEENT Surgical History: Reports: Tonsillectomy, Other (See Below) Other HEENT Surgeries/Procedures: "ear drums replaced" GI Surgical History: Reports: Hernia, Inguinal Female Surgical History: Reports: Section Neurological Surgical History: Reports: Lumbar Spine Other Neurological Surgeries/Procedures: Surgery May 2017 Musculoskeletal Surgical History: Reports: Carpal Tunnel, Other (See Below) Other Musculoskeletal Surgeries/Procedures:: Right foot surgery 07/2020 Dermatological Surgical History: Reports: None Social & Family History - Family History Family Medical History: Noncontributory HEENT: Reports: Impaired Vision Cardiac: Reports: High Cholesterol, Hypertension Endocrine/Metabolic: Reports: Diabetes, type II Dermatologic: Reports: Other (See Below) Other Dermatologic Family History: mother skin cancer Oncologic: Reports: Other (See Below) Other Oncologic Family History: unknown to pt. - Tobacco Use Tobacco Use Comment: stopped last Wednesday - Caffeine Use Caffeine Use: Reports: None - Recreational Drug Use Recreational Drug Use: No Review of Systems - Review of Systems Review Of Systems: See Below Constitutional: Reports: No Symptoms Respiratory: Reports: No Symptoms Cardiovascular: Reports: No Symptoms Musculoskeletal: Reports: Other ([place] a pop to surgical site when getting in/out of bed. ) Skin: Reports: No Symptoms Neurological: Reports: No Symptoms Psychiatric: Reports: No Symptoms ED EXAM, GENERAL - Physical Exam Exam: See Below Exam Limited By: No Limitations General Appearance: Alert, WD/WN, No Apparent Distress Head: Atraumatic, Normocephalic Respiratory/Chest: No Respiratory Distress, Lungs Clear, Normal Breath Sounds, No Accessory Muscle Use, Chest Non-Tender. No: Crackles, Rales, Rhonchi, Wheezing Cardiovascular: Normal Peripheral Pulses, Regular Rate, Rhythm, No Edema, No Murmur Peripheral Pulses: 2+: Radial (L), Radial (R), Dorsalis Pedis (L), Dorsalis Pedis (R) Extremities: Normal Capillary Refill, Leg Pain (status post surgical intervention, no signs of infection noted, splint in place, CMS intact. ), Limited Range of Motion. No: Increased Warmth, Pallor Neurological: Alert, Oriented, No Motor/Sensory Deficits Psychiatric: Normal Affect, Normal Mood Skin Exam: Warm, Dry, Intact, Normal Color, No Rash Lymphatic: No Adenopathy Course - Vital Signs Last Recorded V/S: Last Vital Signs Temp 36.3 C 07/27/20 14:18 Pulse 88 07/27/20 14:18 Resp 18 07/27/20 14:18 BP 114/62 07/27/20 14:18 Pulse Ox 96 07/27/20 14:18 - Re-Assessments/Exams Free Text/Narrative Re-Assessment/Exam: 07/27/20 15:09 No active signs of infection, spint intact. CMS intact. Patient advised to stay non-weight bearing. Prescription for right knee scooter. Departure - Departure Time of Disposition: 14:58 Disposition: Home, Self-Care 01 Condition: Good Clinical Impression: Pain in right lower leg, Status post surgery - Discharge Information *PRESCRIPTION DRUG MONITORING PROGRAM REVIEWED*: No *COPY OF PRESCRIPTION DRUG MONITORING REPORT IN PATIENT CONNIE: No Instructions: Cast or Splint Care, Adult Referrals: Yissel Rios MD [Primary Care Provider] - Forms: ED Department Discharge Additional Instructions: No signs of infection or trauma. Follow up with Dr. Bond on Wednesday. Do not put any weight on right foot. Fill prescription for right leg scooter, use as directed. Return for any worsening, issues or concerns. Sepsis Event Note (ED) - Evaluation Sepsis Screening Result: No Definite Risk - Focused Exam Vital Signs: Vital Signs Temp Pulse Resp BP Pulse Ox 07/27/20 14:18 36.3 C 88 18 114/62 96 07/27/20 14:14 36.3 C 88 18 114/62 96 - Assessment/Plan Assessment:: Pain in right lower leg, Status post surgery CMS intact, no sign of infection or trauma Plan: No signs of infection or trauma. Follow up with Dr. Bond on Wednesday. Do not put any weight on right foot. Fill prescription for right leg scooter, use as directed. Return for any worsening, issues or concerns.
== END 2020-07-27 15:18 | disposition home or self-care (01) ==
LOC: JP.ED 13:14
DX: M79.661 Pain in right lower leg (principal); E11.40 Type 2 diabetes mellitus with diabetic neuropathy, unspecified; Z98.890 Other specified postprocedural states; Z88.1 Allergy status to other antibiotic agents; Z88.6 Allergy status to analgesic agent; F32.9 Major depressive disorder, single episode, unspecified; E66.9 Obesity, unspecified; Z79.84 Long term (current) use of oral hypoglycemic drugs; Z79.899 Other long term (current) drug therapy; Z87.891 Personal history of nicotine dependence; Z68.41 Body mass index [BMI] 40.0-44.9, adult
CPT/HCPCS: 99283

== ENCOUNTER 2022-11-11 13:00 | Emergency (ER) | payer MEDICARE, MEDICAID ==
[2022-11-11] MEDS ORDERED: Diphtheria,Pertussis(Acell),Tetanus Vaccine 0.5 ML Syringe IM ONE (13:01)
[2022-11-11] MEDS ORDERED: Lidocaine 1% 5 ML VIAL INJECT ONE (13:01)
[2022-11-11] MEDS ORDERED: Bacitracin Oint 1 GM U/D Packet TOP ONE (13:01)
[2022-11-11 14:03] VITALS: BP 134/77; PULSE 82
== END 2022-11-11 14:45 | disposition home or self-care (01) ==
LOC: JP.ED 13:00
DX: S61.211A Laceration without foreign body of left index finger without damage to nail, initial encounter (principal); S61.213A Laceration without foreign body of left middle finger without damage to nail, initial encounter; E11.9 Type 2 diabetes mellitus without complications; E66.9 Obesity, unspecified; Z79.84 Long term (current) use of oral hypoglycemic drugs; Z68.30 Body mass index [BMI] 30.0-30.9, adult; Z88.8 Allergy status to other drugs, medicaments and biological substances; W25.XXXA Contact with sharp glass, initial encounter
CPT/HCPCS: 12001; 99282

== ENCOUNTER 2022-12-15 20:33 | Emergency (ER) | payer MEDICARE, MEDICAID ==
[2022-12-15 22:22] VITALS: BP 146/94; PULSE 83
== END 2022-12-15 22:38 | disposition home or self-care (01) ==
LOC: JP.ED 20:33
DX: S29.011A Strain of muscle and tendon of front wall of thorax, initial encounter (principal); E11.40 Type 2 diabetes mellitus with diabetic neuropathy, unspecified; E66.9 Obesity, unspecified; F17.210 Nicotine dependence, cigarettes, uncomplicated; Z68.35 Body mass index [BMI] 35.0-35.9, adult; Z88.1 Allergy status to other antibiotic agents; Z88.6 Allergy status to analgesic agent; Z79.84 Long term (current) use of oral hypoglycemic drugs; Z79.899 Other long term (current) drug therapy
CPT/HCPCS: 36415; 71046; 71046-26; 84484; 85025; 85379; 86140; 99283

== ENCOUNTER 2023-04-25 06:23 | Emergency (ER) | payer MEDICARE, MEDICAID ==
[2023-04-25 06:52] VITALS: BP 119/83; PULSE 81
[2023-04-25] MEDS ORDERED: Bupivacaine 0.5%/EPINEPHrine 1:200,000 1.8 ML Cartridge INJECT ONE (07:00)
== END 2023-04-25 08:09 | disposition home or self-care (01) ==
LOC: JP.ED 06:23
DX: K04.7 Periapical abscess without sinus (principal); K02.9 Dental caries, unspecified; E11.9 Type 2 diabetes mellitus without complications; E66.9 Obesity, unspecified; Z68.31 Body mass index [BMI] 31.0-31.9, adult; Z86.16 Personal history of COVID-19; Z88.8 Allergy status to other drugs, medicaments and biological substances; Z79.84 Long term (current) use of oral hypoglycemic drugs; Z72.0 Tobacco use
CPT/HCPCS: 64400; 99282; J3490

== ENCOUNTER 2023-10-16 10:15 | Emergency (ER) | payer MEDICARE, MEDICAID ==
[2023-10-16 11:48] VITALS: BP 114/78; PULSE 88
== END 2023-10-16 15:12 | disposition left against medical advice (07) ==
LOC: JP.ED 10:15
DX: Z53.21 Procedure and treatment not carried out due to patient leaving prior to being seen by health care provider (principal)

== ENCOUNTER 2023-12-06 12:31 | Emergency (ER) | payer MEDICARE, MEDICAID ==
[2023-12-06 12:39] VITALS: BP 113/84; PULSE 99
== END 2023-12-06 14:45 | disposition home or self-care (01) ==
LOC: JP.ED 12:31
DX: M25.551 Pain in right hip (principal); E11.9 Type 2 diabetes mellitus without complications; Z79.84 Long term (current) use of oral hypoglycemic drugs; Z86.16 Personal history of COVID-19; Z88.6 Allergy status to analgesic agent; Z88.8 Allergy status to other drugs, medicaments and biological substances; W01.0XXA Fall on same level from slipping, tripping and stumbling without subsequent striking against object, initial encounter
CPT/HCPCS: 73502-26-LT; 73502-LT; 99283; 99284

== ENCOUNTER 2023-12-15 14:04 | Emergency (ER) | payer MEDICARE, MEDICAID ==
[2023-12-15 14:35] VITALS: BP 115/82; PULSE 90
[2023-12-15] MEDS: Ketorolac 15 MG/ML SDV IM ONE (15:09)
== END 2023-12-15 16:57 ==
LOC: JP.ED 14:04
DX: S06.0X0A Concussion without loss of consciousness, initial encounter (principal); S16.1XXA Strain of muscle, fascia and tendon at neck level, initial encounter; S39.012A Strain of muscle, fascia and tendon of lower back, initial encounter; S70.02XA Contusion of left hip, initial encounter; F17.210 Nicotine dependence, cigarettes, uncomplicated; S00.03XA Contusion of scalp, initial encounter; E11.40 Type 2 diabetes mellitus with diabetic neuropathy, unspecified; E66.9 Obesity, unspecified; Z86.16 Personal history of COVID-19; Z79.84 Long term (current) use of oral hypoglycemic drugs; Z79.899 Other long term (current) drug therapy; Z88.5 Allergy status to narcotic agent; Z88.8 Allergy status to other drugs, medicaments and biological substances; W01.198A Fall on same level from slipping, tripping and stumbling with subsequent striking against other object, initial encounter; Z68.33 Body mass index [BMI] 33.0-33.9, adult
CPT/HCPCS: 70450; 72125; 73700; 76377; 96372; 99283; 99284; J1885

== ENCOUNTER 2023-12-21 09:50 | Emergency (ER) | payer MEDICARE, MEDICAID ==
[2023-12-21 11:02] VITALS: BP 149/84; PULSE 111
== END 2023-12-21 11:30 | disposition left against medical advice (07) ==
LOC: JP.ED 09:50
DX: Z53.21 Procedure and treatment not carried out due to patient leaving prior to being seen by health care provider (principal)

== ENCOUNTER 2024-01-06 18:31 | Emergency (ER) | payer MEDICARE, MEDICAID ==
[2024-01-06 20:16] VITALS: BP 141/74; PULSE 94
[2024-01-06 20:41] LABS: BASOPHILS ABSOLUTE AUTO 0.07 K/uL (0.00-0.10); BASOPHILS PERCENT AUTO 0.6 % (0.1-1.3); EOSINOPHILS ABSOLUTE AUTO 0.07 K/uL (0.00-0.40); EOSINOPHILS PERCENT AUTO 0.6 % (0.0-5.4); HEMATOCRIT 40.8 % (34.3-46.0); HEMOGLOBIN 14.3 g/dL (11.2-15.5); IMMATURE GRAN ABSOLUTE AUTO 0.03 K/uL (0.00-0.23); IMMATURE GRAN PERCENT AUTO 0.3 % (0.0-0.7); LYMPHOCYTES ABSOLUTE AUTO 2.82 K/uL (0.8-3.3); LYMPHOCYTES PERCENT AUTO 24.7 % (11.4-47.7); MEAN CORPUSCULAR HEMOGLOBIN 31.6 pg (31.6-35.5); MEAN CORPUSCULAR VOLUME 90.3 fL (81.4-99.0); MONOCYTES ABSOLUTE AUTO 1.12 K/uL (0.20-0.90); MONOCYTES PERCENT AUTO 9.8 % (3.3-12.6); NEUTROPHILS ABSOLUTE AUTO 7.29 K/uL (1.0-7.6); PLATELET COUNT,PLT 190 K/uL (130-375); RED BLOOD CELL COUNT 4.52 M/uL (3.77-5.24); WHITE BLOOD CELL COUNT,WBC 11.4 K/uL (3.2-11.0)
[2024-01-06] MEDS: Ketorolac 15 MG/ML SDV IVPUSH ONE (20:41)
[2024-01-06] MEDS: Sodium Chloride 0.9% 10 ML Syringe FLUSH PRN (20:42)
[2024-01-06] MEDS: tiZANidine 2 MG Tab PO ONE (22:04)
== END 2024-01-06 23:06 | disposition home or self-care (01) ==
LOC: JP.ED 18:31
DX: M94.0 Chondrocostal junction syndrome [Tietze] (principal); F17.210 Nicotine dependence, cigarettes, uncomplicated; E11.9 Type 2 diabetes mellitus without complications; Z79.84 Long term (current) use of oral hypoglycemic drugs; Z79.899 Other long term (current) drug therapy; Z88.8 Allergy status to other drugs, medicaments and biological substances
CPT/HCPCS: 36415; 71101; 85025; 85379; 96374; 99283; A9270; J1885; J3490

== ENCOUNTER 2024-05-10 11:22 | Emergency (ER) | payer MEDICARE, MEDICAID ==
[2024-05-10 11:33] VITALS: BP 128/62; PULSE 92
== END 2024-05-10 13:32 | disposition left against medical advice (07) ==
LOC: JP.ED 11:22
DX: Z53.21 Procedure and treatment not carried out due to patient leaving prior to being seen by health care provider (principal)

== ENCOUNTER 2024-05-21 13:19 | Emergency (ER) | payer MEDICARE, MEDICAID ==
[2024-05-21 15:28] VITALS: BP 134/70; PULSE 89
[2024-05-21 16:08] LABS: BASOPHILS ABSOLUTE AUTO 0.07 K/uL (0.00-0.10); BASOPHILS PERCENT AUTO 0.9 % (0.1-1.3); EOSINOPHILS ABSOLUTE AUTO 0.16 K/uL (0.00-0.40); EOSINOPHILS PERCENT AUTO 2.1 % (0.0-5.4); HEMATOCRIT 39.9 % (34.3-46.0); HEMOGLOBIN 14.1 g/dL (11.2-15.5); IMMATURE GRAN ABSOLUTE AUTO 0.02 K/uL (0.00-0.23); IMMATURE GRAN PERCENT AUTO 0.3 % (0.0-0.7); LYMPHOCYTES ABSOLUTE AUTO 3.05 K/uL (0.8-3.3); LYMPHOCYTES PERCENT AUTO 40.9 % (11.4-47.7); MEAN CORPUSCULAR HEMOGLOBIN 31.3 pg (31.6-35.5); MEAN CORPUSCULAR HGB CONC 35.3 g/dL (31.6-35.5); MEAN CORPUSCULAR VOLUME 88.5 fL (81.4-99.0); MONOCYTES ABSOLUTE AUTO 0.57 K/uL (0.20-0.90); MONOCYTES PERCENT AUTO 7.6 % (3.3-12.6); NEUTROPHILS ABSOLUTE AUTO 3.59 K/uL (1.0-7.6); NEUTROPHILS PERCENT AUTO 48.2 % (40.0-78.1); PLATELET COUNT,PLT 179 K/uL (130-375); RED BLOOD CELL COUNT 4.51 M/uL (3.77-5.24); WHITE BLOOD CELL COUNT,WBC 7.5 K/uL (3.2-11.0)
[2024-05-21 16:28] LABS: A/G RATIO 0.9 (1.2-2.2); ALANINE AMINOTRANSFERASE,ALT 51 U/L (12-78); ALBUMIN 3.7 g/dL (3.4-5.0); ALKALINE PHOSPHATASE 91 U/L (46-116); ASPARTATE AMNIOTRANSFERASE,AST 41 U/L (15-37); BILIRUBIN TOTAL 0.3 mg/dL (0.2-1.0); BLOOD UREA NITROGEN,BUN 22 mg/dL (7-18); CALCIUM 9.4 mg/dL (8.5-10.1); CARBON DIOXIDE,CO2 29 mmol/L (21-32); CHLORIDE,CL 102 mmol/L (100-108); CREATININE 1.3 mg/dL (0.6-1.0); EST CRCL DRUG DOSING (CG) 38.07 mL/min; ESTIMATED GFR 47 mL/min (>60); GLUCOSE RANDOM 140 mg/dL (74-106); SODIUM,NA 142 mmol/L (140-148)
== END 2024-05-21 17:49 | disposition home or self-care (01) ==
LOC: JP.ED 13:19
DX: S93.505A Unspecified sprain of left lesser toe(s), initial encounter (principal); E66.9 Obesity, unspecified; E11.9 Type 2 diabetes mellitus without complications; Z88.8 Allergy status to other drugs, medicaments and biological substances; Z79.84 Long term (current) use of oral hypoglycemic drugs; Z79.899 Other long term (current) drug therapy; Z86.16 Personal history of COVID-19; Z68.37 Body mass index [BMI] 37.0-37.9, adult; W22.8XXA Striking against or struck by other objects, initial encounter
CPT/HCPCS: 36415; 71046; 71046-26; 73620-26-LT; 73620-LT; 80053; 85025; 85379; 99283; 99284

== ENCOUNTER 2025-02-19 14:40 | Emergency (ER) | payer MEDICARE ==
[2025-02-19 15:02] VITALS: BP 128/77; PULSE 99
[2025-02-19] MEDS ORDERED: Naloxone 0.4 MG/ML SDV IVPUSH PRN (15:13)
[2025-02-19] MEDS ORDERED: HYDROmorphone 1 MG/ML Syringe IVPUSH PRN (15:13)
[2025-02-19] MEDS: Sodium Chloride 0.9% 1,000 ML IV ONE (15:21)
[2025-02-19] MEDS: Ondansetron 4 MG/2 ML SDV IVPUSH ONE (15:21)
[2025-02-19 16:03] LABS: BASOPHILS ABSOLUTE AUTO 0.05 K/uL (0.00-0.10); BASOPHILS PERCENT AUTO 0.6 % (0.1-1.3); EOSINOPHILS ABSOLUTE AUTO 0.11 K/uL (0.00-0.40); EOSINOPHILS PERCENT AUTO 1.3 % (0.0-5.4); HEMATOCRIT 41.1 % (34.3-46.0); HEMOGLOBIN 14.2 g/dL (11.2-15.5); IMMATURE GRAN PERCENT AUTO 0.2 % (0.0-0.7); LYMPHOCYTES ABSOLUTE AUTO 2.31 K/uL (0.8-3.3); LYMPHOCYTES PERCENT AUTO 27.3 % (11.4-47.7); MEAN CORPUSCULAR HEMOGLOBIN 31.7 pg (31.6-35.5); MEAN CORPUSCULAR HGB CONC 34.5 g/dL (31.6-35.5); MEAN CORPUSCULAR VOLUME 91.7 fL (81.4-99.0); MONOCYTES ABSOLUTE AUTO 0.88 K/uL (0.20-0.90); MONOCYTES PERCENT AUTO 10.4 % (3.3-12.6); NEUTROPHILS ABSOLUTE AUTO 5.09 K/uL (1.0-7.6); NEUTROPHILS PERCENT AUTO 60.2 % (40.0-78.1); PLATELET COUNT,PLT 176 K/uL (130-375); RED BLOOD CELL COUNT 4.48 M/uL (3.77-5.24); WHITE BLOOD CELL COUNT,WBC 8.5 K/uL (3.2-11.0)
[2025-02-19] MEDS: Ibuprofen 600 MG Tab PO ONE (16:04)
[2025-02-19 16:11] LABS: IMMATURE GRAN ABSOLUTE AUTO 0.02 K/uL (0.00-0.23)
[2025-02-19 16:25] LABS: A/G RATIO 0.9 (1.2-2.2); ALANINE AMINOTRANSFERASE,ALT 52 U/L (12-78); ALBUMIN 3.6 g/dL (3.4-5.0); ALKALINE PHOSPHATASE 99 U/L (46-116); ASPARTATE AMNIOTRANSFERASE,AST 37 U/L (15-37); BILIRUBIN TOTAL 0.5 mg/dL (0.2-1.0); BLOOD UREA NITROGEN,BUN 21 mg/dL (7-18); C-REACTIVE PROTEIN 2.74 mg/dL (<0.50); CARBON DIOXIDE,CO2 29 mmol/L (21-32); CHLORIDE,CL 100 mmol/L (100-108); CREATININE 1.4 mg/dL (0.6-1.0); EST CRCL DRUG DOSING (CG) 34.91 mL/min; ESTIMATED GFR 43 mL/min (>60); GLUCOSE RANDOM 160 mg/dL (74-106); POTASSIUM,K 3.3 mmol/L (3.6-5.2); PROTEIN TOTAL,TP 7.8 g/dL (6.4-8.2); PROTHROMBIN TIME 10.1 sec (9.2-10.6); SODIUM,NA 141 mmol/L (140-148)
[2025-02-19 16:27] LABS: ANION GAP 15.3 mmol/L (5.0-14.0)
== END 2025-02-19 17:22 | disposition home or self-care (01) ==
LOC: JP.ED 14:40
DX: L03.116 Cellulitis of left lower limb (principal); E11.40 Type 2 diabetes mellitus with diabetic neuropathy, unspecified; E66.9 Obesity, unspecified; Z88.8 Allergy status to other drugs, medicaments and biological substances; Z79.899 Other long term (current) drug therapy; Z79.84 Long term (current) use of oral hypoglycemic drugs; Z86.16 Personal history of COVID-19; Z68.36 Body mass index [BMI] 36.0-36.9, adult
CPT/HCPCS: 36415; 73630-26-LT; 73630-LT; 80053; 83605; 85025; 85379; 85610; 86140; 93971-LT; 99283; 99284; A9270-GY

== ENCOUNTER 2025-05-26 10:58 | Emergency (ER) | payer MEDICARE ==
[2025-05-26 11:42] VITALS: BP 102/67; PULSE 96
== END 2025-05-26 11:53 | disposition home or self-care (01) ==
LOC: JP.ED 10:58
DX: M54.41 Lumbago with sciatica, right side (principal); E66.9 Obesity, unspecified; E11.9 Type 2 diabetes mellitus without complications; Z88.8 Allergy status to other drugs, medicaments and biological substances; Z79.84 Long term (current) use of oral hypoglycemic drugs; Z79.899 Other long term (current) drug therapy; Z86.16 Personal history of COVID-19; Z68.34 Body mass index [BMI] 34.0-34.9, adult
CPT/HCPCS: 99283